=== PATIENT | male | born 1985 | race African-American/Black ===

== ENCOUNTER 2019-01-18 10:10 | Emergency (ER) | payer OTHER ==
--- NOTE | 2019-01-18 11:44 | RAD REPORT ---
EXAM DESCRIPTION: USExtrem Venous W Compress Bil01/18/2019 11:32 am CLINICAL HISTORY: Leg pain COMPARISON: 2016 FINDINGS: The common femoral, superficial femoral, popliteal and posterior tibial veins bilaterally are compressible and demonstrate augmentation. Doppler demonstrates good flow. IMPRESSION: No evidence of deep venous thrombosis involving either lower extremity.
--- NOTE | 2019-01-18 12:38 | EDPHYS ---
Physician Documentation [facility] Name: Roly Guy Jr Age: 33 yrs Sex: Male : 1985 Arrival Date: 01/18/2019 Time: 10:12 Bed 2 Private MD: Jeremias Burns B ED Physician Milton Harding HPI: 01/18 10:35 This 33 yrs old Black Male presents to ER via Wheelchair with complaints of Blood Clot. cp 10:35 The patient presents with pain, that is acute, swelling. The complaints affect the cp lateral aspect of left calf and left calf, lateral aspect of right calf and right calf. 10:35 Onset: The symptoms/episode began/occurred 2 week(s) ago. Associated signs and cp symptoms: Pertinent negatives fever, warmth, weakness. Patient reports history of DVT. Was taking prescribed Eliquis until he ran out 2 weeks ago. Patient resumed taking Eliquis 4 days ago. Historical: - Allergies: 10:30 Sulfa (Sulfonamide Antibiotics); sv 10:30 NSAIDS; sv - Home Meds: 10:30 Eliquis 2.5 mg oral tab [Active]; Uloric 80 mg oral tab [Active]; Bystolic 20 mg oral sv tab [Active]; Cardura 2 mg Oral tab [Active]; clonidine HCl 0.1 mg Oral tab [Active]; hydralazine 50 mg Oral tab [Active]; levothyroxine 100 mcg tab [Active]; vescepa 1gm [Active]; Repatha Syringe subcutaneous subcutaneous [Active]; CoQ-10 oral oral [Active]; Zetia 10 mg Oral tab [Active]; tremfyia [Active]; - PMHx: 10:30 DVT; Gout; Hyperlipidemia; Hypertension; kidney problems; St 3; Psoriatic arthritis; sv High Cholesterol; Psoriasis; - PSHx: 10:30 None; sv - Immunization history:: Adult Immunizations up to date, Flu vaccine is not up to date. - Social history:: Smoking status: Patient/guardian denies using tobacco. - Ebola Screening: : No symptoms or risks identified at this time. ROS: 10:45 Constitutional: Negative for body aches, chills, fever, poor PO intake. cp 10:45 Eyes: Negative for injury, pain, redness, and discharge. cp 10:45 ENT: Negative for drainage from ear(s), ear pain, sore throat, difficulty swallowing, difficulty handling secretions. 10:45 Cardiovascular: Negative for chest pain, edema, palpitations. 10:45 Respiratory: Negative for cough, shortness of breath, wheezing. 10:45 Abdomen/GI: Negative for abdominal pain, nausea, vomiting, and diarrhea. 10:45 Back: Negative for pain at rest, pain with movement. 10:45 MS/extremity: Positive for pain, swelling, tenderness, of the right calf and left calf and lateral aspect of left calf and lateral aspect of right calf, Negative for injury or acute deformity, paresthesias. 10:45 Skin: Negative for cellulitis, rash. 10:45 Neuro: Negative for dizziness, headache, syncope, weakness. 10:45 All other systems are negative. Exam: 10:50 Constitutional: The patient appears in no acute distress, alert, awake, cp non-diaphoretic, non-toxic, well developed, well nourished. 10:50 Head/Face: Normocephalic, atraumatic. cp 10:50 Eyes: Periorbital structures: appear normal, Conjunctiva: normal, no exudate, no injection, Lids and lashes: appear normal, bilaterally. 10:50 ENT: External ear(s): are unremarkable, Nose: is normal, Mouth: Lips: moist, Oral mucosa: moist, Posterior pharynx: is normal, airway is patent, no erythema, no exudate. 10:50 Chest/axilla: Inspection: normal. 10:50 Cardiovascular: Rate: normal. 10:50 Respiratory: the patient does not display signs of respiratory distress, Respirations: normal, no use of accessory muscles, no retractions, no splinting, no tachypnea, labored breathing, is not present, Breath sounds: are clear throughout, no decreased breath sounds, no stridor, no wheezing. 10:50 Abdomen/GI: Exam negative for discomfort, distension, guarding, Inspection: abdomen appears normal. 10:50 Musculoskeletal/extremity: DVT Exam: no swelling, no erythema, no increased warmth, pain, of the lateral aspect of right calf and right calf and left calf and lateral aspect of left calf, tenderness, that is mild, of the lateral aspect of left calf and lateral aspect of right calf and right calf and left calf. 10:50 Skin: cellulitis, is not appreciated, no rash present. Vital Signs: 10:30 BP 142 / 75; Pulse 79; Resp 18; Temp 97; Pulse Ox 98% ; Weight 124.74 kg; Height 5 ft. sv 9 in. (175.26 cm); 12:00 BP 127 / 87; Pulse 92; Resp 18; Pulse Ox 98% on R/A; aj1 10:30 Body Mass Index 40.61 (124.74 kg, 175.26 cm) sv MDM: 10:26 Patient medically screened. cp 10:30 Differential diagnosis: tendonitis, sprain, strain, DVT. cp 12:36 Data reviewed: vital signs, nurses notes, radiologic studies, ultrasound, and as a cp result, I will discharge patient. 12:36 Counseling: I had a detailed discussion with the patient and/or guardian regarding: the cp historical points, exam findings, and any diagnostic results supporting the discharge/admit diagnosis, radiology results, to return to the emergency department if symptoms worsen or persist or if there are any questions or concerns that arise at home. ED course: VSS. US negative for DVT. Will discharge to home for continued monitoring. 01/18 10:26 Order name: US Extremity Venous W Compression Derek cp Administered Medications: No medications were administered Disposition: 16:05 Co-signature as Attending Physician, Milton Harding MD I agree with the assessment and kdr plan of care. Disposition: 01/18/19 12:37 Discharged to Home. Impression: Pain in right lower leg, Pain in left lower leg. - Condition is Stable. - Discharge Instructions: Elastic Bandage and RICE, Musculoskeletal Pain, RICE for Routine Care of Injuries. - Medication Reconciliation Form, Thank You Letter, Antibiotic Education, Prescription Opioid Use, Work release form form. - Follow up: Private Physician; When: 2 - 3 days; Reason: Recheck today's complaints. - Problem is new. - Symptoms have improved. Signatures: Dispatcher [employer] Christina Glass, Milton Marley RN, MD MD kdr Page, Corey, PA PA cp Peltier, Brian, RN RN bp Corrections: (The following items were deleted from the chart) 12:49 12:37 01/18/2019 12:37 Discharged to Home. Impression: Pain in right lower leg; Pain in bp left lower leg. Condition is Stable. Forms are Medication Reconciliation Form, Thank You Letter, Antibiotic Education, Prescription Opioid Use. Follow up: Private Physician; When: 2 - 3 days; Reason: Recheck today's complaints. Problem is new. Symptoms have improved. cp
--- NOTE | 2019-01-18 12:38 | ER ---
Nurse's Notes [facility] Name: Roly Guy Jr Age: 33 yrs Sex: Male : 1985 Arrival Date: 01/18/2019 Time: 10:12 Bed 2 Private MD: Jeremias Burns B Diagnosis: Pain in right lower leg;Pain in left lower leg Presentation: 01/18 10:25 Presenting complaint: Patient states: RLE swelling x 2 weeks and LLE swelling x 1 week; sv recently ran out of his Eliquis 4 days ago. Hx DVTs. Transition of care: patient was not received from another setting of care. Onset of symptoms was December 2018. Risk Assessment: Do you want to hurt yourself or someone else? Patient reports no desire to harm self or others. Initial Sepsis Screen: Does the patient meet any 2 criteria? No. Patient's initial sepsis screen is negative. Does the patient have a suspected source of infection? No. Patient's initial sepsis screen is negative. Care prior to arrival: None. 10:25 Method Of Arrival: Wheelchair sv 10:25 Acuity: KAITLIN 3 sv Triage Assessment: 10:30 General: Appears in no apparent distress. comfortable, Behavior is calm, cooperative, bp appropriate for age. Historical: - Allergies: 10:30 Sulfa (Sulfonamide Antibiotics); sv 10:30 NSAIDS; sv - Home Meds: 10:30 Eliquis 2.5 mg oral tab [Active]; Uloric 80 mg oral tab [Active]; Bystolic 20 mg oral sv tab [Active]; Cardura 2 mg Oral tab [Active]; clonidine HCl 0.1 mg Oral tab [Active]; hydralazine 50 mg Oral tab [Active]; levothyroxine 100 mcg tab [Active]; vescepa 1gm [Active]; Repatha Syringe subcutaneous subcutaneous [Active]; CoQ-10 oral oral [Active]; Zetia 10 mg Oral tab [Active]; tremfyia [Active]; - PMHx: 10:30 DVT; Gout; Hyperlipidemia; Hypertension; kidney problems; St 3; Psoriatic arthritis; sv High Cholesterol; Psoriasis; - PSHx: 10:30 None; sv - Immunization history:: Adult Immunizations up to date, Flu vaccine is not up to date. - Social history:: Smoking status: Patient/guardian denies using tobacco. - Ebola Screening: : No symptoms or risks identified at this time. Screenin:25 Abuse screen: Denies threats or abuse. Denies injuries from another. Nutritional aj1 screening: No deficits noted. Tuberculosis screening: No symptoms or risk factors identified. 12:49 Fall Risk None identified. bp Assessment: 10:25 General: Appears in no apparent distress. comfortable, Behavior is calm, cooperative, aj1 appropriate for age. Pain: Complains of pain in right calf and left calf Pain does not radiate. Pain currently is 4 out of 10 on a pain scale. Quality of pain is described as aching, Is continuous, Alleviated by nothing. Aggravated by nothing. Neuro: Level of Consciousness is awake, alert, obeys commands, Oriented to person, place, time, situation. Cardiovascular: Heart tones S1 S2 present Patient's skin is warm and dry. Respiratory: Airway is patent Respiratory effort is even, unlabored, Respiratory pattern is regular, symmetrical, Breath sounds are clear bilaterally. Respiratory: Denies shortness of breath. GI: No signs and/or symptoms were reported involving the gastrointestinal system. : No signs and/or symptoms were reported regarding the genitourinary system. EENT: No signs and/or symptoms were reported regarding the EENT system. Derm: No signs and/or symptoms reported regarding the dermatologic system. Skin is pink, warm \T\ dry. normal. Musculoskeletal: Swelling absent. 11:30 Reassessment: Patient is in ultrasound at this time. aj1 12:00 Reassessment: Patient appears in no apparent distress at this time. No changes from aj1 previously documented assessment. Patient and/or family updated on plan of care and expected duration. Pain level reassessed. Patient is alert, oriented x 3, equal unlabored respirations, skin warm/dry/pink. 12:48 Reassessment: PT D/C HOME AMBULATORY WITH FAMILY, DX WITH LOWER LEG PAIN. bp Vital Signs: 10:30 BP 142 / 75; Pulse 79; Resp 18; Temp 97; Pulse Ox 98% ; Weight 124.74 kg; Height 5 ft. sv 9 in. (175.26 cm); 12:00 BP 127 / 87; Pulse 92; Resp 18; Pulse Ox 98% on R/A; aj1 10:30 Body Mass Index 40.61 (124.74 kg, 175.26 cm) ED Course: 10:12 Patient arrived in ED. mr 10:13 Jeremias Burns MD is Private Physician. mr 10:23 Navarro Odonnell PA is PHCP. cp 10:23 Milton Harding MD is Attending Physician. cp 10:25 Joanie Falcon, RN is Primary Nurse. aj1 10:25 Patient has correct armband on for positive identification. Bed in low position. Call aj1 light in reach. 10:25 No provider procedures requiring assistance completed. aj1 10:26 Triage completed. sv 12:48 Patient did not have IV access during this emergency room visit. bp 12:49 Arm band placed on. bp Administered Medications: No medications were administered Outcome: 12:37 Discharge ordered by MD. cp 12:48 Discharged to home ambulatory, with family. bp 12:48 Condition: stable 12:48 Discharge instructions given to patient, Instructed on discharge instructions, follow up and referral plans. Demonstrated understanding of instructions, follow-up care. 12:49 Patient left the ED. bp Signatures: Joanie Falcon, RN RN aj1 Christina Lua RN RN Savannah Guan mr Navarro Odonnell PA PA Pj Cedeno, RN RN bp
[2019-01-18 13:18] VITALS: TEMP 97; O2SAT 98
[2019-01-18 13:20] VITALS: BP 127/87
== END 2019-01-18 12:49 | disposition home or self-care (01) ==
LOC: ER 10:10
DX: M79.661 Pain in right lower leg (principal); M79.662 Pain in left lower leg; I82.409 Acute embolism and thrombosis of unspecified deep veins of unspecified lower extremity; E78.5 Hyperlipidemia, unspecified; I10 Essential (primary) hypertension; E78.00 Pure hypercholesterolemia, unspecified; Z88.2 Allergy status to sulfonamides
CPT/HCPCS: 93970; 99281

== ENCOUNTER 2020-01-07 13:00 | Inpatient (IN) | payer BC, OTHER ==
--- NOTE | 2020-01-07 14:18 | RAD REPORT ---
EXAM DESCRIPTION: Tyson Single View01/07/2020 2:11 pm CLINICAL HISTORY: Cough COMPARISON: 2015 FINDINGS: Lungs appear grossly clear Heart is size
[2020-01-07] MEDS ORDERED: ACETAMINOPHEN 325 MG TABLET ONE (14:25)
[2020-01-07] MEDS ORDERED: dexAMETHasone 10 MG/ML VIAL ONE (14:25)
[2020-01-07] MEDS ORDERED: NA CHLORIDE 0.9% 500 ML ONE (14:25)
[2020-01-07 15:36] LABS: Absolute Lymphocytes (CBC) 1.6 K/uL (0.7-4.9); Basophils % 1.1 % (0-1.3); Hematocrit 44.6 % (39.6-49.0); Lymphocytes % 21.3 % (15.3-44.8); MPV 8.6 fL (7.6-11.3); RBC Red Blood Cell Count 5.92 M/uL (4.33-5.43)
[2020-01-07 16:05] LABS: Potassium 4.8 mmol/L (3.5-5.1)
[2020-01-07 17:51] LABS: Blood Morphology Comment NOT SEEN (NOT SEEN); Platelet Estimate ADEQ; Urine White Blood Cell Casts OK
--- NOTE | 2020-01-07 17:55 | ER ---
Nurse's Notes [facility] Name: Roly Guy Jr Age: 34 yrs Sex: Male : 1985 Arrival Date: 01/07/2020 Time: 13:02 Bed 14 Private MD: Diagnosis: Acute kidney failure;Dyspnea, unspecified;Coronavirus infection, unspecified Presentation: 01/06 13:15 Chief complaint: Patient states: Covid-19+ 01/01/2020. Symptoms started 12/28/2019. C/O ca1 SOB and low BP at 90/50, reports almost pass out a couple of times. Completed Z-pack and Medrol Pack. Coronavirus screen: Client denies travel out of the [place] in the last 14 days. cough unrelated to allergies, diarrhea, fatigue, shortness of breath, sore throat, loss of taste or smell, Client presents with at least one sign or symptom that may indicate coronavirus-19. Standard/surgical mask placed on the client. Provider contacted for isolation considerations. Client reports previous positive COVID test result. Date of collection: January 01, 2020 Staff notified of need for isolation. Ebola Screen: Patient negative for fever greater than or equal to 101.5 degrees Fahrenheit, and additional compatible Ebola Virus Disease symptoms Patient denies exposure to infectious person. Patient denies travel to an Ebola-affected area in the 21 days before illness onset. No symptoms or risks identified at this time. Initial Sepsis Screen: Does the patient meet any 2 criteria? No. Patient's initial sepsis screen is negative. Does the patient have a suspected source of infection? No. Patient's initial sepsis screen is negative. Risk Assessment: Do you want to hurt yourself or someone else? Patient reports no desire to harm self or others. Onset of symptoms was January 07, 2020. 13:15 Method Of Arrival: Ambulatory ca1 13:15 Acuity: KAITLIN 3 ca1 Historical: - Allergies: 13:24 NKDA; ca1 13:24 NSAIDS; ca1 13:24 Sulfa (Sulfonamide Antibiotics); ca1 - Home Meds: 13:24 Bystolic 20 mg Oral tab 1 tab once daily [Active]; levothyroxine 112 mcg oral tab 1 tab ca1 once daily [Active]; Uloric 80 mg Oral tab 1 tab once daily [Active]; Cardura 2 mg Oral tab 1 tab twice a day [Active]; clonidine HCl 0.1 mg Oral tab 1 tab 2 times per day [Active]; calcitriol 0.25 mcg oral cap [Active]; Eliquis 2.5 mg Oral tab 1 tab 2 times per day [Active]; vescepa 1gm twice a day [Active]; Repatha Syringe subcutaneous every 2 wks [Active]; CoQ-10 200 mg cap Oral daily [Active]; ezetimibe oral 10 mg oral 1 tab once daily [Active]; Enbrel 50 mg/mL (0.98 mL) subcutaneous syrg 1 mL once wkly [Active]; - PMHx: 13:24 DVT; Gout; High Cholesterol; Hyperlipidemia; Hypertension; kidney problems; St 3; ca1 psoriasis; Psoriatic Arthritis; Rheumatoid Arthritis; CKD stage 3; IGA Neuropathy; Hypothyroidism; - Immunization history:: Adult Immunizations up to date. - Social history:: Smoking status: Patient denies any tobacco usage or history of. - Family history:: not pertinent. - Hospitalizations: : No recent hospitalization is reported. Screenin:30 Abuse screen: Denies threats or abuse. Denies injuries from another. Nutritional jl7 screening: No deficits noted. Tuberculosis screening: No symptoms or risk factors identified. Fall Risk IV access (20 points). Total Ly Fall Scale indicates No Risk (0-24 pts). Assessment: 13:30 General: Appears in no apparent distress. uncomfortable, Behavior is calm, cooperative, jl7 appropriate for age. Pain: Denies pain. Neuro: Level of Consciousness is awake, alert, obeys commands, Oriented to person, place, time, situation. Cardiovascular: Patient's skin is warm and dry. Respiratory: Airway is patent Respiratory effort is even, unlabored, Respiratory pattern is regular, symmetrical. GI: No signs and/or symptoms were reported involving the gastrointestinal system. : No signs and/or symptoms were reported regarding the genitourinary system. EENT: No signs and/or symptoms were reported regarding the EENT system. Derm: Skin is pink, warm \T\ dry. Musculoskeletal: No signs and/or symptoms reported regarding the musculoskeletal system. 14:30 Reassessment: Patient appears in no apparent distress at this time. No changes from jl7 previously documented assessment. Patient and/or family updated on plan of care and expected duration. Pain level reassessed. Patient is alert, oriented x 3, equal unlabored respirations, skin warm/dry/pink. 15:43 Reassessment: Patient appears in no apparent distress at this time. No changes from jl7 previously documented assessment. Patient and/or family updated on plan of care and expected duration. Pain level reassessed. Patient is alert, oriented x 3, equal unlabored respirations, skin warm/dry/pink. 17:28 Reassessment: Patient appears in no apparent distress at this time. No changes from jl7 previously documented assessment. Patient and/or family updated on plan of care and expected duration. Pain level reassessed. Patient is alert, oriented x 3, equal unlabored respirations, skin warm/dry/pink. 18:30 Reassessment: Provided pt with sandwich, chips, and fruit cup. jl7 Vital Signs: 13:15 BP 107 / 75; Pulse 80; Resp 20; Temp 99.3(O); Pulse Ox 94% on R/A; Weight 122.47 kg ca1 (R); Height 5 ft. 9 in. (175.26 cm) (R); 13:30 BP 114 / 77; Pulse 75; Resp 17 S; Pulse Ox 96% on R/A; jl7 14:00 BP 109 / 74; Pulse 71; Resp 19; Pulse Ox 97% ; jl7 14:30 BP 110 / 71; Pulse 72; Resp 19; Pulse Ox 97% ; jl7 15:00 BP 108 / 70; Pulse 75; Resp 17; Pulse Ox 96% ; jl7 15:30 BP 107 / 80; Pulse 83; Resp 18; Pulse Ox 99% ; jl7 17:31 BP 104 / 79; Pulse 72; Resp 17; Pulse Ox 99% ; jl7 19:00 BP 111 / 77; Pulse 69; Resp 19; Pulse Ox 99% ; jl7 19:38 BP 117 / 78; Pulse 79; Resp 18; Temp 98.5; Pulse Ox 98% on R/A; mg2 13:15 Body Mass Index 39.87 (122.47 kg, 175.26 cm) ca1 ED Course: 13:02 Patient arrived in ED. rg4 13:12 William Villeda MD is Attending Physician. rn 13:19 Triage completed. ca1 13:24 Arm band placed on right wrist. ca1 13:40 Initial lab(s) drawn, by ED staff, sent to lab. Inserted saline lock: 20 gauge in right jl7 antecubital area, using aseptic technique. Blood collected. 14:11 XRAY Chest (1 view): COVID+ In Process Unspecified. EDMS 14:12 Bir Denton, RN is Primary Nurse. jl7 14:30 Patient has correct armband on for positive identification. Placed in gown. Bed in low jl7 position. Call light in reach. Side rails up X 1. cardiology nurse on. Pulse ox on. NIBP on. 15:16 Lab(s) recollected, by me, sent to lab. jl7 17:54 Pb Burns DO is Hospitalizing Provider. rn 19:00 No provider procedures requiring assistance completed. Patient admitted, IV remains in jl7 place. intact, No redness/swelling at site. Administered Medications: 14:24 Drug: NS 0.9% 500 ml Route: IV; Rate: bolus; Site: right antecubital; jl7 16:00 Follow up: Response: No adverse reaction; IV Status: Completed infusion; IV Intake: jl7 500ml 14:24 Drug: Tylenol 650 mg Route: PO; jl7 15:15 Follow up: Response: No adverse reaction jl7 14:25 Drug: Decadron - Dexamethasone 10 mg Route: IVP; Site: right antecubital; jl7 15:16 Follow up: Response: No adverse reaction jl7 Intake: 16:00 IV: 500ml; Total: 500ml. jl7 Outcome: 17:54 Decision to Hospitalize by Provider. rn 19:39 Admitted to Med/surg accompanied by nurse, via wheelchair, room 430, with chart, Report mg2 called to MYRON Anderson 19:39 Condition: stable 19:39 Instructed on the need for admit, Demonstrated understanding of instructions. 20:08 Patient left the ED. mg2 Signatures: Dispatcher [employer] EDMS William Villeda MD MD rn Garcia, Rubi rg4 Bri Dentno, MYRON SANCHES jl7 Corey Kumari RN RN mg2 Margo Alexander RN RN ca1
--- NOTE | 2020-01-07 17:55 | EDPHYS ---
Physician Documentation [facility] Name: Roly Guy Jr Age: 34 yrs Sex: Male : 1985 Arrival Date: 01/07/2020 Time: 13:02 Bed 14 Private MD: ED Physician William Villeda HPI: 01/06 14:10 This 34 yrs old Black Male presents to ER via Ambulatory with complaints of COVID+, SOB.rn 14:10 The patient has shortness of breath at rest, with light activity. Onset: The rn symptoms/episode began/occurred 1 week(s) ago. Duration: The symptoms are intermittent. The patient's shortness of breath is aggravated by exertion, light activity, is alleviated by nothing. Severity of symptoms: At their worst the symptoms were moderate in the emergency department the symptoms are unchanged. The patient has not experienced similar symptoms in the past. Reports covid +, tested last week, reports slowly worsening sob, dry cough, fatigue. No chest pain. No hemoptysis. . Historical: - Allergies: 13:24 NKDA; ca1 13:24 NSAIDS; ca1 13:24 Sulfa (Sulfonamide Antibiotics); ca1 - Home Meds: 13:24 Bystolic 20 mg Oral tab 1 tab once daily [Active]; levothyroxine 112 mcg oral tab 1 tab ca1 once daily [Active]; Uloric 80 mg Oral tab 1 tab once daily [Active]; Cardura 2 mg Oral tab 1 tab twice a day [Active]; clonidine HCl 0.1 mg Oral tab 1 tab 2 times per day [Active]; calcitriol 0.25 mcg oral cap [Active]; Eliquis 2.5 mg Oral tab 1 tab 2 times per day [Active]; vescepa 1gm twice a day [Active]; Repatha Syringe subcutaneous every 2 wks [Active]; CoQ-10 200 mg cap Oral daily [Active]; ezetimibe oral 10 mg oral 1 tab once daily [Active]; Enbrel 50 mg/mL (0.98 mL) subcutaneous syrg 1 mL once wkly [Active]; - PMHx: 13:24 DVT; Gout; High Cholesterol; Hyperlipidemia; Hypertension; kidney problems; St 3; ca1 psoriasis; Psoriatic Arthritis; Rheumatoid Arthritis; CKD stage 3; IGA Neuropathy; Hypothyroidism; - Immunization history:: Adult Immunizations up to date. - Social history:: Smoking status: Patient denies any tobacco usage or history of. - Family history:: not pertinent. - Hospitalizations: : No recent hospitalization is reported. 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 Exam: 14:10 Constitutional: This is a well developed, well nourished patient who is awake, alert, rn and in no acute distress. Head/Face: Normocephalic, atraumatic. Eyes: Pupils equal round, Periorbital areas with no swelling, redness, or edema. ENT: No stridor Cardiovascular: Regular rate and rhythm. No pulse deficits. Respiratory: Mild tachypnea, no retractions. Skin: Dry, no cyanosis. Neuro: Awake and alert, GCS 15 Vital Signs: 13:15 BP 107 / 75; Pulse 80; Resp 20; Temp 99.3(O); Pulse Ox 94% on R/A; Weight 122.47 kg ca1 (R); Height 5 ft. 9 in. (175.26 cm) (R); 13:30 BP 114 / 77; Pulse 75; Resp 17 S; Pulse Ox 96% on R/A; jl7 14:00 BP 109 / 74; Pulse 71; Resp 19; Pulse Ox 97% ; jl7 14:30 BP 110 / 71; Pulse 72; Resp 19; Pulse Ox 97% ; jl7 15:00 BP 108 / 70; Pulse 75; Resp 17; Pulse Ox 96% ; jl7 15:30 BP 107 / 80; Pulse 83; Resp 18; Pulse Ox 99% ; jl7 17:31 BP 104 / 79; Pulse 72; Resp 17; Pulse Ox 99% ; jl7 19:00 BP 111 / 77; Pulse 69; Resp 19; Pulse Ox 99% ; jl7 19:38 BP 117 / 78; Pulse 79; Resp 18; Temp 98.5; Pulse Ox 98% on R/A; mg2 13:15 Body Mass Index 39.87 (122.47 kg, 175.26 cm) ca1 MDM: 13:12 Patient medically screened. rn 17:51 Differential diagnosis: Pneumonia, renal failure, COVID+. Data reviewed: vital signs, rn nurses notes, lab test result(s), radiologic studies, plain films, and as a result, I will admit patient. Counseling: I had a detailed discussion with the patient and/or guardian regarding: the historical points, exam findings, and any diagnostic results supporting the discharge/admit diagnosis, lab results, radiology results, the need for further work-up and treatment in the hospital. Response to treatment: the patient's symptoms have mildly improved after treatment, and as a result, I will admit patient. Admission orders: after a detailed discussion of the patient's condition and case, the admit orders are written by me. ED course: Pt admitted to Dr. Burns for COVID infection and acute renal failure. . 01/06 13:27 Order name: CBC with Diff; Complete Time: 17:56 rn 01/06 13:27 Order name: Basic Metabolic Panel; Complete Time: 16:40 rn 01/06 13:27 Order name: Procalcitonin; Complete Time: 16:40 rn 01/06 13:27 Order name: Blood Culture Adult (2) rn 01/06 13:27 Order name: CRP; Complete Time: 16:40 rn 01/06 13:27 Order name: Ferritin; Complete Time: 16:40 rn 01/06 13:27 Order name: IV Start; Complete Time: 14:25 rn 01/06 13:27 Order name: XRAY Chest (1 view): COVID+; Complete Time: 14:29 rn 01/06 13:27 Order name: D-Dimer; Complete Time: 16:02 rn 01/06 16:44 Order name: CK; Complete Time: 18:07 rn 01/06 17:50 Order name: CBC Smear Scan; Complete Time: 17:56 EDWV 01/06 14:14 Order name: Labs - recollect needed: recollect green, blue and lavendar top; Complete bd Time: 15:15 Administered Medications: 14:24 Drug: NS 0.9% 500 ml Route: IV; Rate: bolus; Site: right antecubital; jl7 16:00 Follow up: Response: No adverse reaction; IV Status: Completed infusion; IV Intake: jl7 500ml 14:24 Drug: Tylenol 650 mg Route: PO; 7 15:15 Follow up: Response: No adverse reaction [facility] 14:25 Drug: Decadron - Dexamethasone 10 mg Route: IVP; Site: right antecubital; 7 15:16 Follow up: Response: No adverse reaction [facility] Disposition: 01/07/20 17:54 Hospitalization ordered by Pb Burns for Inpatient Admission. Preliminary diagnosis are Acute kidney failure, Dyspnea, unspecified, Coronavirus infection, unspecified. - Bed requested for Telemetry/MedSurg (Inpatient). - Status is Inpatient Admission. mg2 - Condition is Stable. - Problem is new. - Symptoms have improved. 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 Preliminary dw diagnosis is Acute kidney failure; Dyspnea, unspecified; Coronavirus infection, unspecified. Bed requested for Telemetry/MedSurg (Inpatient). Status is Inpatient Admission. Condition is Stable. Problem is new. Symptoms have improved. rn 20:08 18:44 01/07/2020 17:54 Hospitalization Ordered by Pb Burns DO for Inpatient mg2 Admission. Preliminary diagnosis is Acute kidney failure; Dyspnea, unspecified; Coronavirus infection, unspecified. Bed requested for Telemetry/MedSurg (Inpatient). Status is Inpatient Admission. Condition is Stable. Problem is new. Symptoms have improved. dw
--- NOTE | 2020-01-07 18:33 | P.HP ---
Certification for Inpatient Patient admitted to: Observation With expected LOS: <2 Midnights Patient will require the following post-hospital care: None Practitioner: I am a practitioner with admitting privileges, knowledge of patient current condition, hospital course, and medical plan of care. Services: Services provided to patient in accordance with Admission requirements found in Title 42 Section 412.3 of the Code of Federal Regulations Patient History Date of Service: 01/07/20 Primary Care Provider: Dr. Burns Reason for admission: Acute renal failure History of Present Illness: 34-year-old male with history of IgA nephropathy, hypertension, hyperlipidemia, DVT, gout presents emergency department after testing positive for COVID on December 31. Patient reports malaise, fatigue, blood pressure running a bit low. Patient was evaluated in the emergency department and found to be in acute renal failure. Patient's baseline creatinine is around 2.8-3 and baseline GFR is around 30. Today patient's creatinine is 6.4 and GFR is 12. ED provider wishes to admit patient for further evaluation and management. When I saw the patient in the emergency department he was awake, alert, oriented x3. Patient in no distress at this time. Patient without labored breathing, oxygen saturation within normal limits. Patient be admitted for further evaluation and management. Allergies No Known Drug Allergies Allergy (Verified 04/19/16 01:14) Unknown Home Medications: Adalimumab [Humira] 1 pill PO EVERY 7TH DAY 04/19/16 Doxazosin [Cardura*] 1 pill PO BEDTIME 04/19/16 Levothyroxine [Synthroid*] 1 pill PO DAILY 04/19/16 Nebivolol HCl [Bystolic*] 1 pill PO DAILY 04/19/16 allopurinoL [Zyloprim*] 1 pill PO BID 04/19/16 Hydralazine HCl 50 mg PO BID #60 tablet 04/22/16 Levothyroxine [Synthroid*] 75 mcg PO [id number] #30 tab 04/22/16 cloNIDine HCL [Catapres*] 0.1 mg PO BID #60 tab 04/22/16 - Past Medical/Surgical History Diabetic: No -: Hypertension -: Hyperlipidemia -: Hypothyroidism -: Gout -: Psoriasis -: IgA nephropathy -: Chronic kidney disease stage III Past Surgical History: Patient denies surgical history Psychosocial/ Personal History: He is , has 4 children, 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 - Family History Father -: Hypertension, Diabetes, Stroke, Kidney disease - Social History Smoking Status: Never smoker Alcohol use: Yes CD- Drugs: No Caffeine use: Yes Place of Residence: Home Review of Systems 10-point ROS is otherwise unremarkable General: Malaise Physical Examination - Physical Exam General: Alert, In no apparent distress, Oriented x3 HEENT: Atraumatic, Normocephalic, PERRLA, Other (Mucous membranes dry) Neck: Supple Respiratory: Clear to auscultation bilaterally, Normal air movement Cardiovascular: No edema, Regular rate/rhythm, Normal S1 S2 Capillary refill: <2 Seconds Gastrointestinal: Normal bowel sounds, Soft and benign Musculoskeletal: No contractures, No erythema, No tenderness Integumentary: No tenderness/swelling, No erythema, No warmth Neurological: Normal speech, Normal strength at 5/5 x4 extr, Normal tone - Studies Laboratory Data (last 24 hrs) 01/07/20 15:10: Sodium 140, Potassium 4.8, BUN 78 H, Creatinine 6.44 H*, Glucose 100 01/07/20 15:10: WBC 7.7, Hgb 15.0, Hct 44.6, Plt Count 159 Assessment and Plan - Plan Assessment Acute on chronic kidney disease-history of IgA nephropathy COVID-19 Hypertension Hyperlipidemia Gout History of DVT Plan Acute on chronic kidney disease-history of IgA nephropathy: Nephrology has been consulted on this case. Continue gentle hydration at this time. Will obtain renal ultrasound and repeat labs in the morning. Appreciate further input from nephrology. COVID-19: Patient without any respiratory symptoms or distress this time. Will continue to monitor closely. Will order daily CRP and ferritin levels. Hypertension: Patient's blood pressure within normal limits at this time without medication. Will continue to monitor closely. Will hold any nephrotoxic agents. Hyperlipidemia: Obtain and continue patient's home medications. Gout: Will obtain home medications and evaluate, restart if not nephrotoxic. History of DVT: Continue with heparin 5000 units subcutaneous twice daily at this time. Will restart patient's home medications as appropriate. Discharge Plan: Home Plan to discharge in: 24 Hours - Advance Directives Does patient have a Living Will: No Does patient have a Durable POA for Healthcare: No - Code Status/Comfort Care Code Status Assessed: No Critical Care: No Time Spent Managing Pts Care (In Minutes): 55
[2020-01-07] MEDS ORDERED: ACETAMINOPHEN 500 MG TAB PO PRN (20:16)
[2020-01-07] MEDS ORDERED: ONDANSETRON 4 MG/2 ML VIAL IV PRN (20:16)
[2020-01-07] MEDS ORDERED: HYDROCODONE/APAP 7.5/325 MG TAB PO PRN (20:16)
[2020-01-07] MEDS: NA CHLORIDE 0.9% 1,000 ML IV SCH (20:47)
[2020-01-07 21:18] VITALS: BMI 39.8
[2020-01-07] MEDS: HEPARIN 5000 UNIT/ML 1 ML VIAL SQ SCH (21:43)
[2020-01-08 04:15] LABS: Absolute Lymphocytes (CBC) 0.7 K/uL (0.7-4.9); Basophils % 0.2 % (0-1.3); Hematocrit 44.1 % (39.6-49.0); Lymphocytes % 16.5 % (15.3-44.8); MPV 8.8 fL (7.6-11.3); RBC Red Blood Cell Count 5.89 M/uL (4.33-5.43)
[2020-01-08 04:34] LABS: Urine Appearance CLOUDY; Urine Bilirubin NEGATIVE (NEG); Urine Blood 2+ (NEG); Urine Color YELLOW; Urine Glucose TRACE (NEG); Urine Protein 3+ (NEG); Urine Urobilinogen 0.2 mg/dL (0.2-1.0)
[2020-01-08 04:39] LABS: Urine Microscopic Reflex ORDER UMIC
[2020-01-08 04:49] LABS: C-Reactive Protein 16.7 mg/L (<3.00); Ferritin 1027.2 ng/mL (26-388); Magnesium 2.1 mg/dL (1.8-2.4); Phosphorus 3.7 mg/dL (2.5-4.9); Potassium 5.4 mmol/L (3.5-5.1); Uric Acid 9.1 mg/dL (3.5-7.2)
[2020-01-08 04:49] LABS: Urine Protein/Creatinine Ratio 13.2 ratio (<0.15)
[2020-01-08 05:19] LABS: Urine Bacteria 20-50 /HPF (NONE SEEN); Urine Culture Reflex Order REFLEXED; Urine RBC <5 /HPF (NONE SEEN)
[2020-01-08] MEDS: NA CHLORIDE 0.9% 1,000 ML IV SCH ×2 (05:48→15:42)
[2020-01-08] MEDS: HEPARIN 5000 UNIT/ML 1 ML VIAL SQ SCH ×2 (07:35→21:32)
[2020-01-08] MEDS: CALCITROL 0.25 MCG CAP PO SCH (11:51)
--- NOTE | 2020-01-08 12:17 | RAD REPORT ---
EXAM DESCRIPTION: US - Renal Ultrasound-Complete - 01/08/2020 10:55 am CLINICAL HISTORY: arf COMPARISON: Renal Biopsy dated 04/20/2016 FINDINGS: The right kidney measures 12.0 x 8.1 x 7.1 cm. The left kidney measures 9.8 x 6.0 x 5.6 c m. Cortical thickness is within normal range. There is increased cortical echogenicity consistent wit h medical renal disease. No hydronephrosis or suspicious renal mass. Partially filled urinary bladder shows no suspicious finding. IMPRESSION: Medical renal disease is evident with no mass, hydronephrosis or other suspicious findin g. No urinary bladder seen. Bladder was only partially filled.
--- NOTE | 2020-01-08 12:40 | CON ---
Date of Consultation: 01/08/2020 Additional Consulting Physician: Dr. Gregg. Reason For Consultation: Elevated BUN and creatinine, fluid management. History Of Present Illness: This is a pleasant 34-year-old black gentleman with significant past medical history of hypertension, hyperlipidemia, edema, hypothyroidism, gout, chronic kidney disease stage 4 with nephrotic range proteinuria secondary to IgA nephropathy confirmed with biopsy back in 2015, did not go any under treatment. The patient had severe fibrosis. The patient followup with Dr. Rodgers, follow up back in July, at that time creatinine 3.8 with GFR 28. The patient apparently for the last few days feeling sick. The patient had positive COVID test back on the . Since then, he started feeling sicker with nausea, decreased intake. According to him, his blood pressure started dropping down for that reason he stop the clonidine, but continue on the other blood pressure medication. The patient because he felt worse, he reported to the emergency room when he arrived to the emergency room, primary workup show low blood pressure down to 70. Elevated BUN and creatinine, creatinine above 6 with GFR of 12 without any significant hyperkalemia. For that reason, we have been consulted. The patient denied taking any nonsteroidal, no IV contrast. Again, the patient according to him, he stop the clonidine, but continue on the Bystolic and the Cardura. Past Medical History: Include: 1. IgA nephropathy. 2. Hypertension. 3. Hyperlipidemia. 4. DVT. 5. Gout. 6. Chronic kidney disease, stage 4, secondary to IgA nephropathy. Home Medications: Include Humira, Cardura, levothyroxine, Bystolic, allopurinol, hydralazine, and clonidine. Past Surgical History: Include kidney biopsy. Family History: Positive for diabetes, hypertension, and stroke. Social History: Denies smoking. Occasional alcohol. Denies drug abuse. Review of Systems: Head and Neck: No red eye. No ear pain. GI: Has nausea and vomiting. : No polyuria. No dysuria. No hematuria. Product Technician: Not applicable. Respiratory: Has shortness of breath. Cardiovascular: No chest pain. Endocrine: No polydipsia. Skin: No rash. Neuro: Generalized fatigue. Musculoskeletal: Weakness. No joint pain. Physical Examination: Vital Signs: When I saw the patient upon arrival to the hospital blood pressure was on the 70 and rise after boluses to 107. Currently blood pressure 154/100. Chest: Clear to auscultation. Heart: S1 and S2, regular. Abdomen: Soft and nontender. Extremities: No edema. Neurologic: Alert and oriented x3. No focal. No tremor. Laboratory Data: WBC 4.1, H and H 14.8/44, platelets of 156. Sodium 143, potassium 5.4, bicarb 23, BUN 79, creatinine 6.3 and yesterday it was 6.4, GFR of 12, calcium 7.7, uric acid 9.1, ferritin 10.27, CK 169. Serum protein electrophoresis still pending. PTH 212. P/C ratio 13. Renal ultrasound still pending. Assessment/plan: 1. Acute kidney injury, mostly secondary to prerenal dehydration superimposed with the blood pressure medication secondary to GI poor intake plateau, marginal hyperkalemia. No severe acidosis. No uremic symptoms. I do not see the need to initiate renal replacement therapy. I going to continue IV hydration for the time being and I will follow up serology. Doubt to be any autoimmune disease for the patient possible COVID nephropathy. Again we will follow up the serology. Hopefully by stopping the blood pressure medication on hydration, hopefully kidney function has been improved. Again, I do not suspect autoimmune disease given there is no activity on urinalysis. No hematuria or leukouria. 2. Gout. Resume allopurinol. 3. Hypertension. Currently blood pressure on the lower side. Hold all blood pressure medication. I will start the patient back on his Bystolic and we will follow up. 4. Hyperkalemia marginal. We will follow up chemistry. Continue hydration. 5. Nephrotic range proteinuria secondary to IgA nephropathy. We will hold on any YAJAIRA inhibitor or ARB for the time being given the acute kidney injury. 6. Secondary hyperpara. I going to start the patient on Hectorol/calcitriol and we will follow up. Dr. Gregg for allowing us to participate in the care of your patient. Time spend for patient Care face to face , ordering and discussing the plan of care with staff 35 min ANETTE Voice ID: [id number] Report ID: [id number] MIGUE
[2020-01-08] MEDS ORDERED: HYDRALAZINE HCL 20 MG/ML VIAL IV PRN (17:39)
--- NOTE | 2020-01-08 17:40 | P.PN ---
Subjective Date of Service: 01/08/20 Primary Care Provider: Dr. Burns Chief Complaint: Acute renal failure Patient has no complain. His blood pressure readings are elevated today. Physical Examination - Vital Signs Temperature: 96.5 F Blood Pressure: 146/103 Pulse: 74 Respirations: 18 Pulse Ox (%): 98 - Physical Exam General: Alert, In no apparent distress, Oriented x3 HEENT: Mucous membr. moist/pink, Sclerae nonicteric Neck: Supple Respiratory: Clear to auscultation bilaterally, Normal air movement Cardiovascular: No edema, Regular rate/rhythm, Normal S1 S2 Gastrointestinal: Normal bowel sounds, Soft and benign, No tenderness Musculoskeletal: No swelling, No erythema Integumentary: No rashes Neurological: Other (Nonfocal.) - Studies Laboratory Data (last 24 hrs) 01/08/20 03:16: Sodium 143, Potassium 5.4 H, BUN 79 H, Creatinine 6.38 H*, G lucose 183 H, Uric Acid 9.1 H, Phosphorus 3.7, Magnesium 2.1 01/08/20 03:16: WBC 4.1 L D, Hgb 14.8, Hct 44.1, Plt Count 156 01/08/20 03:16: Uric Acid Cancelled, Phosphorus Cancelled 01/07/20 15:10: WBC 7.7, Hgb 15.0, Hct 44.6, Plt Count 159 Assessment And Plan - Current Problems (Diagnosis) (1) Acute worsening of stage 4 chronic kidney disease Current Visit: Yes Status: Acute (2) IgA deficiency Current Visit: Yes Status: Acute (3) COVID-19 virus infection Current Visit: Yes Status: Acute - Plan Continue IV hydration. Patient seen by nephrology. Serum creatinine is trending down slowly. Hopefully it would respond to IV hydration so we can avoid dialysis. Resume home antihypertensives. Hydralazine p.r.n. for BP spikes. Patient is asymptomatic from the COVID 19 infection.
[2020-01-08] MEDS ORDERED: cloNIDine HCL 0.1 MG TAB PO SCH (21:00)
[2020-01-09] MEDS: NA CHLORIDE 0.9% 1,000 ML IV SCH ×3 (02:16→11:28)
[2020-01-09 03:56] LABS: Absolute Lymphocytes (CBC) 1.5 K/uL (0.7-4.9); Basophils % 0.5 % (0-1.3); Hematocrit 42.1 % (39.6-49.0); Lymphocytes % 14.2 % (15.3-44.8); MPV 8.7 fL (7.6-11.3); RBC Red Blood Cell Count 5.66 M/uL (4.33-5.43)
[2020-01-09 04:35] LABS: Albumin 1.8 g/dL (3.4-5.0); Magnesium 1.8 mg/dL (1.8-2.4); Phosphorus 4.6 mg/dL (2.5-4.9); Potassium 5.1 mmol/L (3.5-5.1)
[2020-01-09] MEDS: LEVOTHYROXINE SOD 0.112 MG TAB PO SCH (06:31)
[2020-01-09] MEDS: HEPARIN 5000 UNIT/ML 1 ML VIAL SQ SCH ×2 (07:36→19:29)
[2020-01-09] MEDS: allopurinoL 100 MG TAB PO SCH (07:37)
[2020-01-09] MEDS ORDERED: MAGNESIUM SULFATE 1 gm IVPB 1 GM/100 ML BAG IV ONE (09:00)
[2020-01-09] MEDS ORDERED: NEBIVOLOL HCL 20 MG TABLET PO SCH (09:00)
[2020-01-09] MEDS ORDERED: NEBIVOLOL HCL 5 MG TAB PO SCH (09:00)
--- NOTE | 2020-01-09 14:32 | P.PN ---
Subjective Date of Service: 01/09/20 Primary Care Provider: Dr. Burns Chief Complaint: Acute renal failure Patient has no complain. His blood pressure readings are better today. Serum creatinine is trending down. Adequate urine output. Physical Examination - Vital Signs Temperature: 96.4 F Blood Pressure: 130/87 Pulse: 68 Respirations: 18 Pulse Ox (%): 98 - Physical Exam General: Alert, In no apparent distress HEENT: Mucous membr. moist/pink Respiratory: Clear to auscultation bilaterally, Normal air movement Cardiovascular: No edema, Regular rate/rhythm, Normal S1 S2 Gastrointestinal: Normal bowel sounds, Soft and benign, No tenderness Musculoskeletal: No swelling, No erythema Assessment And Plan - Current Problems (Diagnosis) (1) Acute worsening of stage 4 chronic kidney disease Current Visit: Yes Status: Acute (2) IgA deficiency Current Visit: Yes Status: Acute (3) COVID-19 virus infection Current Visit: Yes Status: Acute - Plan Continue IV hydration. Nephrology is following Serum creatinine is trending down. Hopefully it would respond to IV hydration so we can avoid dialysis. Continue antihypertensives. Hydralazine p.r.n. for BP spikes. Patient is asymptomatic from the COVID 19 infection.
--- NOTE | 2020-01-09 15:33 | PN ---
Date of Progress Note: 01/09/2020 Subjective: The patient was admitted with acute kidney injury secondary to prerenal, secondary to de hydration complicated with severe hyperkalemia. The patient has chronic kidney disease secondary to IgA nephropathy confirmed with biopsy. Physical Examination: Vital Signs: When I saw the patient, blood pressure 130/87, pulse of 68, afebrile. The patient had good urine output of 2600. Chest: Clear to auscultation. Heart: S1, S2. Regular. Abdomen: Soft, nontender. Extremities: No edema. Neurological: Alert and oriented x3. Nonfocal. Laboratory Data: WBC 10.8, H and H 14.3/42.1, platelets 191. Sodium 145, potassium 5.1, BUN 78, cre atinine down to 5.7, GFR of 14. Calcium 7.6, phosphorus 4.6, magnesium 1.8. Albumin 1.8, PTH of 212 . Serology is still pending. Current Medications: The patient on include heparin, clonidine 0.1 b.i.d., Zofran, levothyroxine, IV fluid at 100. Assessment And Plan: 1.Acute kidney injury on chronic kidney disease secondary to prerenal, doubt to be COVID nephropathy or activity of the IgA nephropathy as the urinalysis is planned and the improvement on all the IV fl uids. I am going to continue hydration, decrease IV fluids to 50 per hour. 2.Hypertension, controlled, optimal. Continue current treatment. 3.IgA nephropathy with acute kidney injury as above. 4.Hypothyroidism. Continue supplement. 5.COVID pneumonia. No hypoxemia. We will monitor the patient. ANETTE Voice ID: [id number] Report ID: [id number]
[2020-01-10] MEDS: NA CHLORIDE 0.9% 1,000 ML IV SCH (05:12)
[2020-01-10] MEDS: LEVOTHYROXINE SOD 0.112 MG TAB PO SCH (05:12)
[2020-01-10 05:36] LABS: Albumin 1.5 g/dL (3.4-5.0); Phosphorus 4.7 mg/dL (2.5-4.9); Potassium 5.2 mmol/L (3.5-5.1)
[2020-01-10] MEDS: NEBIVOLOL HCL 5 MG TAB PO SCH (07:45)
[2020-01-10] MEDS: HEPARIN 5000 UNIT/ML 1 ML VIAL SQ SCH ×2 (07:46→20:12)
[2020-01-10] MEDS: allopurinoL 100 MG TAB PO SCH (07:47)
[2020-01-10] MEDS: CALCITROL 0.25 MCG CAP PO SCH (10:44)
--- NOTE | 2020-01-10 12:34 | P.PN ---
Subjective Date of Service: 01/10/20 Primary Care Provider: Dr. Burns Chief Complaint: Acute renal failure Subjective Pt with Hx of IgA nephropathy , CKD IV and HTN admitted with fever, COVID 19 positive , Pt was hypotesnive Today CR stable from yesterday Na149, will change fluid to D5W F/U serology will cont to monitor RFT over the next few days no need for enal replacement therapy at this time Physical exam general: AAOX3, NAD , obese Neck; Supple, No elevated JVD hear: RRR, normal S1,2 no murmur or rub Chest: CTAB, no rlaes or wheezes Abdomen: Soft , Nt Extremities No edema or ulcer Assessment And Plan: MEY on CKD IV possibly due to dehydration +/- ischemic ATN +/- COVID cont IV will switch to D5W avoid NSAID and contrast HTN bp controlled now Hypernatremia saline induced will change fluid to D5W COVID 19 cont supportive care Physical Examination - Vital Signs Temperature: 96.4 F Blood Pressure: 140/88 Pulse: 78 Respirations: 16 Pulse Ox (%): 98 - Studies Microbiology Data (last 24 hrs): 01/08/20 03:55 Clean Catch Urine Randolph Count - Final 01/08/20 03:55 Clean Catch Urine - Final No growth.
[2020-01-10] MEDS: D5W 1,000 ML IV SCH (13:00)
--- NOTE | 2020-01-10 17:12 | P.PN ---
Subjective Date of Service: 01/10/20 Primary Care Provider: Dr. Burns Chief Complaint: Acute renal failure Patient has no complain. Serum creatinine is trending down slowly. Adequate urine output. Physical Examination - Vital Signs Temperature: 96.9 F Blood Pressure: 135/88 Pulse: 82 Respirations: 16 Pulse Ox (%): 99 - Physical Exam General: Alert, In no apparent distress, Oriented x3 Respiratory: Clear to auscultation bilaterally, Normal air movement Cardiovascular: No edema, Regular rate/rhythm, Normal S1 S2 Gastrointestinal: Normal bowel sounds, Soft and benign, No tenderness Integumentary: No rashes Neurological: Other (Nonfocal) - Studies Microbiology Data (last 24 hrs): 01/08/20 03:55 Clean Catch Urine [place] Count - Final 01/08/20 03:55 Clean Catch Urine - Final No growth. Assessment And Plan - Current Problems (Diagnosis) (1) Acute worsening of stage 4 chronic kidney disease Current Visit: Yes Status: Acute (2) IgA deficiency Current Visit: Yes Status: Acute (3) COVID-19 virus infection Current Visit: Yes Status: Acute - Plan Continue IV hydration. IV fluids changed to D5W to treat hypernatremia. Nephrology is following Serum creatinine is trending down slowly Continue antihypertensives. Hydralazine p.r.n. for BP spikes. Patient is asymptomatic from the COVID 19 infection.
[2020-01-11] MEDS: LEVOTHYROXINE SOD 0.112 MG TAB PO SCH (05:17)
[2020-01-11] MEDS: D5W 1,000 ML IV SCH ×3 (05:17→16:50)
[2020-01-11 05:46] LABS: Albumin 1.5 g/dL (3.4-5.0); Phosphorus 5.3 mg/dL (2.5-4.9); Potassium 4.7 mmol/L (3.5-5.1)
[2020-01-11] MEDS: NEBIVOLOL HCL 5 MG TAB PO SCH (08:25)
[2020-01-11] MEDS: allopurinoL 100 MG TAB PO SCH (08:25)
[2020-01-11] MEDS: HEPARIN 5000 UNIT/ML 1 ML VIAL SQ SCH ×2 (08:26→21:02)
--- NOTE | 2020-01-11 10:48 | P.PN ---
Subjective Date of Service: 01/11/20 Primary Care Provider: Dr. Burns Chief Complaint: Acute renal failure Patient has no complain. Serum creatinine slightly increased today. Physical Examination - Vital Signs Temperature: 97.4 F Blood Pressure: 154/105 Pulse: 63 Respirations: 12 Pulse Ox (%): 100 - Physical Exam General: Alert, In no apparent distress Respiratory: Clear to auscultation bilaterally, Normal air movement Cardiovascular: No edema, Regular rate/rhythm, Normal S1 S2 Gastrointestinal: Soft and benign, No tenderness Musculoskeletal: No swelling, No erythema Integumentary: No rashes - Studies Microbiology Data (last 24 hrs): 01/08/20 03:55 Clean Catch Urine [place] Count - Final 01/08/20 03:55 Clean Catch Urine - Final No growth. Assessment And Plan - Current Problems (Diagnosis) (1) Acute worsening of stage 4 chronic kidney disease Current Visit: Yes Status: Acute (2) IgA deficiency Current Visit: Yes Status: Acute (3) COVID-19 virus infection Current Visit: Yes Status: Acute - Plan Continue IV hydration. Nephrology is following Serum creatinine did not respond to D5 water. Continue antihypertensives. Hydralazine p.r.n. for BP spikes. Patient is asymptomatic from the COVID 19 infection. Continue to monitor renal function.
--- NOTE | 2020-01-11 14:57 | P.PN ---
Subjective Date of Service: 01/11/20 Primary Care Provider: Dr. Burns Chief Complaint: Acute renal failure Subjective Pt with Hx of IgA nephropathy , CKD IV and HTN admitted with fever, COVID 19 positive , Pt was hypotesnive Today no overnight events cr stable will cont to monitor labs till Monday if no improvement in RFT by Monday , will consider to discharge pt and refer for periotnial dialysis catheter placement as an OP , but if pt cr increase +/i hyperkalemia and aciosis pt will need to start on HD this admission Physical exam general: AAOX3, NAD , obese Neck; Supple, No elevated JVD hear: RRR, normal S1,2 no murmur or rub Chest: CTAB, no rlaes or wheezes Abdomen: Soft , Nt Extremities No edema or ulcer Assessment And Plan: MEY on CKD IV possibly due to dehydration +/- ischemic ATN +/- COVID cont IV will switch to D5W avoid NSAID and contrast if no improvement in RFT by Monday , will consider to discharge pt and refer for periotnial dialysis catheter placement as an OP , but if pt cr increase +/i hyperkalemia and aciosis pt will need to start on HD this admission HTN bp controlled now Hypernatremia saline induced cont D5W COVID 19 cont supportive care Physical Examination - Vital Signs Temperature: 97.5 F Blood Pressure: 154/105 Pulse: 66 Respirations: 14 Pulse Ox (%): 100
[2020-01-12 00:50] VITALS: O2SAT 100
[2020-01-12 05:51] LABS: Albumin 1.6 g/dL (3.4-5.0); Phosphorus 5.2 mg/dL (2.5-4.9); Potassium 5.3 mmol/L (3.5-5.1)
[2020-01-12] MEDS: LEVOTHYROXINE SOD 0.112 MG TAB PO SCH (06:18)
[2020-01-12] MEDS: D5W 1,000 ML IV SCH (06:19)
[2020-01-12] MEDS: allopurinoL 100 MG TAB PO SCH (09:34)
[2020-01-12] MEDS: HEPARIN 5000 UNIT/ML 1 ML VIAL SQ SCH (09:34)
[2020-01-12] MEDS: NEBIVOLOL HCL 5 MG TAB PO SCH (09:34)
[2020-01-12 10:59] LABS: HBsAG Nonreactive (Nonreactive)
[2020-01-12] MEDS ORDERED: SOD POLYSTYREN SUL 15 GM/60 ML UCUP PO ONE (11:33)
--- NOTE | 2020-01-12 11:59 | P.PN ---
Subjective Date of Service: 01/12/20 Primary Care Provider: Dr. Burns Chief Complaint: Acute renal failure Subjective Pt with Hx of IgA nephropathy , CKD IV and HTN admitted with fever, COVID 19 positive , Pt was hypotesnive Today no overnight events cr slightly improved pt wants to go home, will give kayexalate today and prescribe Vekltassa vs Lokelma as an OP to be discharged on Sodium bicarbonate 650mg bid pt to follow with Dr Gottlieb tomorrow or next week Physical exam general: AAOX3, NAD , obese Neck; Supple, No elevated JVD hear: RRR, normal S1,2 no murmur or rub Chest: CTAB, no rlaes or wheezes Abdomen: Soft , Nt Extremities No edema or ulcer Assessment And Plan: MEY on CKD IV possibly due to dehydration +/- ischemic ATN +/- COVID cont IV will switch to D5W avoid NSAID and contrast no indication for renal replacement therapy at this time , but pt might need OP dialysis preparation , pt interested in PD HTN bp controlled now Hyperkalmei a will give kaeyxalate today Vekltassa vs Lokelma as an OP Hypernatremia saline induced encourage to increase fluid intake COVID 19 cont supportive care Physical Examination - Vital Signs Temperature: 98.2 F Blood Pressure: 127/99 Pulse: 82 Respirations: 10 Pulse Ox (%): 100
[2020-01-12] MEDS: CALCITROL 0.25 MCG CAP PO SCH (12:08)
--- NOTE | 2020-01-12 13:29 | P.DS ---
Admission Date: 01/08/20 Discharge Date: 01/12/20 Primary Care Provider: Dr. Burns Disposition: ROUTINE DISCHARGE Discharge Condition: FAIR Reason for Admission: Acute renal failure - Problems (1) Acute worsening of stage 4 chronic kidney disease Current Visit: Yes Status: Acute (2) IgA deficiency Current Visit: Yes Status: Acute (3) COVID-19 virus infection Current Visit: Yes Status: Acute Brief History of Present Illness: 34-year-old gentleman with a history of IgA nephropathy, gout, history of DVT and hypertension presented to the emergency department with a complaint of fatigue, malaise and low blood pressure at 90/50. Patient tested positive for COVID 19 prior to the ED presentation. His blood work showed worse kidney failure with creatinine up to 6.44, compared to a baseline of 3.5 to 3.8. Patient is on multiple blood pressure medications. He was admitted for further management. Hospital Course: Patient admitted to the medical floor. His blood pressure medications with held briefly. Patient was seen and evaluated by nephrology. He was treated with IV hydration and multiple predialysis test requested. Hepatitis panel was negative. Patient serum creatinine responded slowly to IV hydration. Overall his serum creatinine decreased to 5.4. He also had intermittent hyperkalemia. Of note patient has been on Eliquis for DVT. Eliquis was healed due to markedly decreased creatinine clearance. Patient may require hemodialysis and for that matter dialysis catheter. His Eliquis is held on discharge until he follows with Dr. Gottlieb who will decide when to start hemodialysis. Patient was asymptomatic during the hospital stay. His blood pressure medications were resumed except doxazosin. He is currently normotensive without it. He is also prescribed sodium bicarb per nephrology recommendation. Vital Signs/Physical Exam: Temp Pulse Resp BP Pulse Ox 98.2 F 82 10 L 127/99 H 100 01/12/20 11:59 01/12/20 11:59 01/12/20 11:59 01/12/20 11:59 01/12/20 11:59 General: Alert, In no apparent distress, Oriented x3 HEENT: Mucous membr. moist/pink Neck: Supple, JVD not distended Respiratory: Clear to auscultation bilaterally, Normal air movement Cardiovascular: No edema, Regular rate/rhythm, Normal S1 S2 Gastrointestinal: Normal bowel sounds, Soft and benign, Non-distended, No tenderness Musculoskeletal: No swelling, No erythema Integumentary: No rashes Neurological: Normal strength at 5/5 x4 extr Laboratory Data at Discharge: WBC 10.8 K/uL (4.3-10.9) D 01/09/20 03:13 Hgb 14.3 g/dL (13.6-17.9) 01/09/20 03:13 Hct 42.1 % (39.6-49.0) 01/09/20 03:13 Plt Count 191 K/uL (152-406) D 01/09/20 03:13 Sodium 147 mmol/L (136-145) H 01/12/20 04:40 Potassium 5.3 mmol/L (3.5-5.1) H 01/12/20 04:40 BUN 62 mg/dL (7-18) H 01/12/20 04:40 Creatinine 5.40 mg/dL (0.55-1.3) H* 01/12/20 04:40 Glucose 95 mg/dL (74-106) 01/12/20 04:40 Uric Acid 9.1 mg/dL (3.5-7.2) H 01/08/20 03:16 Uric Acid Cancelled 01/08/20 03:16 Phosphorus 5.2 mg/dL (2.5-4.9) H 01/12/20 04:40 Magnesium 1.8 mg/dL (1.8-2.4) 01/09/20 03:13 Home Medications: Nebivolol HCl [Bystolic*] 1 tab PO BEDTIME 04/19/16 cloNIDine HCL [Catapres*] 0.1 mg PO BID #60 tab 04/22/16 Etanercept [Enbrel] 50 mg SQ EVERY 7TH DAY 01/07/20 Evolocumab [Repatha Sureclick] 1 syr SQ SEECOM 01/07/20 Ezetimibe [Zetia*] 10 mg PO DAILY 01/07/20 Febuxostat [Uloric] 80 mg PO DAILY 01/07/20 Icosapent Ethyl [Vascepa 1 gm Cap] 1 gm PO BID 01/07/20 Levothyroxine [Synthroid*] 112 mcg PO DAILY 01/07/20 Ubidecarenone [Co Q-10] 200 mg PO DAILY 01/07/20 Calcitrol [Rocaltrol*] 0.25 mcg PO Q48H #15 cap 01/12/20 Sodium Bicarbonate 650 mg PO BID #60 tablet 01/12/20 New Medications: Calcitrol [Rocaltrol*] 0.25 mcg PO Q48H #15 cap Sodium Bicarbonate 650 mg PO BID #60 tablet Patient Discharge Instructions: Please self isolate for another 4 days. Diet: Renal Activity: Ad julian Followup: Radha Kelsey MD [COURTESY - CAN ADMIT] - 1-2 Days Time spent managing pt's care (in minutes): 40
[2020-01-12 14:12] VITALS: TEMP 98
[2020-01-12 14:13] VITALS: BP 166/89
[2020-01-12 23:37] LABS: Albumin, (SPE) 2.3 g/dL (3.8-4.8); Alpha-1-Globulins 0.3 g/dL (0.2-0.3); Alpha-2-Globulins 0.9 g/dL (0.5-0.9); Gamma Globulins 1.1 g/dL (0.8-1.7); INTERPRETATION REPORT
[2020-01-13 13:02] LABS: HIV AG/AB 4TH GEN Non-reactive (Non-reactive)
== END 2020-01-12 14:00 | disposition home or self-care (01) | DRG 177 ==
LOC: ER 13:00 → ERHOLD 18:32 → 4TH 19:38 → OBSVTOIN 01-08 08:23 → 3RD-ICU 01-10 18:51
PROVIDERS: ADMIT Family Medicine; ATTEND Internal Medicine
DX: U07.1 COVID-19 (principal); J12.89 Other viral pneumonia; N17.9 Acute kidney failure, unspecified; D80.2 Selective deficiency of immunoglobulin A [IgA]; N18.4 Chronic kidney disease, stage 4 (severe); N25.81 Secondary hyperparathyroidism of renal origin; E03.9 Hypothyroidism, unspecified; M10.9 Gout, unspecified; E87.5 Hyperkalemia; E86.0 Dehydration; I12.9 Hypertensive chronic kidney disease with stage 1 through stage 4 chronic kidney disease, or unspecified chronic kidney disease; E78.5 Hyperlipidemia, unspecified; Z86.718 Personal history of other venous thrombosis and embolism; Z79.890 Hormone replacement therapy; Z79.899 Other long term (current) drug therapy; Z88.1 Allergy status to other antibiotic agents; Z79.01 Long term (current) use of anticoagulants
CPT/HCPCS: 36415; 71045; 76770; 80048; 80069; 81003; 81015; 82550; 82570; 82728; 83520; 83735; 83970; 84100; 84145; 84156; 84165; 84550; 85025; 85379; 86021; 86038; 86140; 86160; 86317; 86334; 86705; 86706; 86803; 87040; 87086; 87088; 87340; 87389; 96361; 96374; 99285; G0378; J1100; J1644; J3475; J7030; J7040; U0003

== ENCOUNTER 2020-09-28 10:23 | Emergency (ER) | payer BC ==
--- OUTSIDE RECORDS SUMMARY | 2020-09-28 10:27 | XMS REPORT | Continuity of Care Document ---
:1985 Author Organization [facility] t Address [address] [place] [address] Care Team Providers Name Role Phone KENDRA Attending Clinician Unavailable ANA LUISA Attending Clinician Unavailable Problems Condition Condition Condition Status Onset Resolution Last Treating Co mments Source Name Details Category Date Date Treatment Clinician Date Malabsorpt Malabsorpt Problem Active U nivers ion due to ion due to it [place] of intoler[place] intoleranc [place], not e, not Physici elsewhere elsewhere ans classified classified Malnutriti Malnutriti Problem Active U nivers on on [place]y of [place] Physici ans Vitamin D Vitamin D Problem Active Uni vers deficiency deficiency it y of [place] Physici ans Allergies, Adverse Reactions, Alerts Allergy Allergy Status Severity Reaction(s) Onset Inactive Treating Comm ents Source Name Type Date Date Clinician NSAIDs Allergy Active Univers to drug ity of (finding [place] ) Physici ans Sulfa Allergy Active [facility] Drugs to drug ity of (finding [place] ) Physici ans Medications Ordered Filled Start Stop Current Ordering Indication Dosage Frequency Signature Comments Components Source Medication Medication Date Date Medication? Clinician (SIG) Name Name Vitamin D Vitamin D Yes NITA TAKE 1 Univers (Ergocalcif (Ergocalcif 4-12 M[employer]GAN [employer] ity of pamela) 1.25 pamela) 1.25 00:00: WEEKLY. [place] MG (95389 MG (81116 00 Physi ci [place]) Oral [place]) Oral ans Capsule Capsule Vital Signs Vital Name Observation Time Observation Value Comments Source Body height 2020-08-19 69 [in_us] [facility] 10:01:00 [place] Physician s Weight 2020-08-19 292.8 [lb_av] [facility] 10:01:00 [place] Physician s Body mass index 2020-08-19 43.24 kg/m2 [place] (BMI) [Ratio] 10:01:00 [place] Physicia ns Body temperature 2020-08-19 97.4 [degF] Method: [facility] 10:01:00 Temporal [place] Physician s Heart Rate 2020-08-19 83 /min [facility] 10:01:00 [place] Physician s Systolic blood 2020-08-19 170 mm[Hg] Location: [facility] 10:01:00 Position: [place] Physician s Sitting Diastolic blood 2020-08-19 99 mm[Hg] Location: [facility] 10:01:00 Position: [place] Physician s Sitting Procedures Procedure Date / Time Performing Clinician Source Performed [Q] COMPREHENSIVE 2020-08-19 00:00:00 [facility] METABOLIC PANEL W/eGFR Physician s (REFL) [Q] QUESTASSURED 25-OH 2020-08-19 00:00:00 Unive [facility] [place] VIT D, (D2,D3), LC/MS/MS Physici ans [QL] CBC (INCLUDES 2020-08-19 00:00:00 [facility] DIFF/PLT) Physicians [QL] FOLATE, SERUM 2020-08-19 00:00:00 [facility] Physicians [QL] HEMOGLOBIN A1c 2020-08-19 00:00:00 [facility] Physicians [QL] IRON AND TOTAL IRON 2020-08-19 00:00:00 [facility] BINDING CAPACITY Physicians [QL] LIPID PANEL 2020-08-19 00:00:00 [facility] Physicians [QL] PTH, INTACT 2020-08-19 00:00:00 [facility] (WITHOUT CALCIUM) Physicians [QL] TSH, 3RD GENERATION 2020-08-19 00:00:00 [facility] W/REFLEX TO FT4 Physicians [QL] VITAMIN A (RETINOL) 2020-08-19 00:00:00 [facility] Physicians [QL] VITAMIN B1, WHOLE 2020-08-19 00:00:00 Unive [facility] [place] BLOOD Physicians [QL] VITAMIN B12 2020-08-19 00:00:00 [facility] Physicians [QL] VITAMIN E 2020-08-19 00:00:00 [facility] (TOCOPHEROL) Physicians Encounters Start End Encounter Admission Attending Care Care Encounter Source Date/Time Date/Time Type Type Clinicians Facility Department ID 2020-08-26 2020-08-26 Darlyn KWOKRAJEEV JACK UTP [id number] Univers 13:15:00 13:15:00 t; MAGDI REYES ity of [place], [place] MAGDI REYES Physic i ans 2020-08-19 2020-08-19 AppointJACK [facility] [id number] Univers 09:45:00 09:45:00 t; GERMÁN OROSCO M.D. Invasive Bandar M.D. [facility] Physici ([facility]) ans Results Test Description Test Time Test Comments Results Result Comments Source [QL] IRON AND TOTAL IRON BINDING CAPACITY 2020-08-20 08:11:0 0 Test Item Value Reference Range Interpretation Comme nts IRON, TOTAL (test code = IRON, TOTAL) 75 {mcg/dl} 50-180 N IRON BINDING CAPACITY (test code = IRON BINDING 234 {mcg/dL ca} 25 0-425 CAPACITY) % SATURATION (test code = % SATURATION) 32 {% CALC} 20-48 N [facility] Physicians[QL] CBC (INCLUDES DIFF/PLT)2020-08-20 08:11:00 Test Item Value Reference Range Interpretation Comments WHITE BLOOD CELL COUNT 8.7 {Thousand/u} 3.8-10.8 N (test code = WHITE BLOOD CELL COUNT) RED BLOOD CELL COUNT (test 5.07 {Million/uL} 4.20-5.80 N code = RED BLOOD CELL COUNT) HEMOGLOBIN; Below Low 12.9 g/dl 13.2-17.1 Threshold (test code = 30094-8) HEMATOCRIT; Normal (test 39.4 % 38.5-50.0 N code = 4544-3) MCV; Below Low Threshold 77.7 fL 80.0-100.0 (test code = 787-2) MCHC; Normal (test code = 32.7 g/dl 32.0-36.0 N 41535-6) RDW; Normal (test code = 14.7 % 11.0-15.0 N 788-0) PLATELET COUNT; Normal 196 {Thousand/u} 140-400 N (test code = 777-3) MPV; Normal (test code = 10.4 fL 7.5-12.5 N 29492-8) ABSOLUTE NEUTROPHILS (test 5203 {cells/uL} 5608-1478 N code = ABSOLUTE NEUTROPHILS) ABSOLUTE LYMPHOCYTES (test 2393 {cells/uL} 850-3900 N code = ABSOLUTE LYMPHOCYTES) ABSOLUTE MONOCYTES (test 887 {cells/uL} 200-950 N code = ABSOLUTE MONOCYTES) ABSOLUTE EOSINOPHILS (test 157 {cells/uL} 15-500 N code = ABSOLUTE EOSINOPHILS) ABSOLUTE BASOPHILS (test 61 {cells/uL} 0-200 N code = ABSOLUTE BASOPHILS) NEUTROPHILS (test code = 59.8 % N NEUTROPHILS) LYMPHOCYTES (test code = 27.5 % N LYMPHOCYTES) MONOCYTES; Normal (test 10.2 % N code = 23889-5) EOSINOPHILS; Normal (test 1.8 % N code = 20982-5) BASOPHILS; Normal (test 0.7 % N code = 55989-3) [facility] Physicians[QL] PTH, INTACT (WITHOUT CALCIUM)2020-08-20 08:11:00 Test Item Value Reference Interpretation Comments Range PARATHYROID 110 pg/ml 14-64 Interpretive Gu sanna Intact HORMONE, INTACT PTH (test code = Calcium-------- PARATHYROID HORMONE, INTACT) -------Norm al Parathyroid Normal NormalHypoparat hyroidism Low or Low Norm al LowHyperparathy roidism Primary Normal or High High Secondary High Normal or Low Tertiary High HighNon-Parathy roid Hypercalcemia Low or Low Normal High [facility] Physicians[QL] VITAMIN E (TOCOPHEROL)2020-08-20 08:11:00 Test Item Value Reference Range Interpretation Comments ALPHA-TOCOPHEROL 13.7 mg/L Reference R nancy (test code = 5.7-19.9 mg/L ALPHA-TOCOPHEROL) Levels of alpha-tocopherol <5 mg/L are consistent with Vitamin E deficiency in adults.Vitamin supplementation within 24 hours prior to blood draw may affect the accuracy of results. T his test was developed and i ts analytical perf ormance characteristics have been determined by [employer]. It has not been cleared or approved by theFDA. This as say has been validated pursu ant to the CLIA regulation s and is used for clinic al purposes. [id number] 1.4 mg/L <4.4 This test was developed and PAMELA (test code = its analyt ical performance [id number] characteri stics have been PAMELA) determined by [employer]. It has not been cleared or approved by theFDA. This as say has been validated pursu ant to the CLIA regulation s and is used for clinic al purposes. Reference Range 5.7-19.9 mg/L Levels of alpha-tocopherol <5 mg/L are consistent with Vitamin E deficiency in adults.Vitamin supplementation within 24 hours prior to blood draw may affect the accuracy of results. This test was developed and its analytical performance characteristics have been determined by [employer]. It has not been cleared or approved by theFDA. This assay has been validated pursuant to the CLIA regulations and is used for clinical purposes.[facility] Physicians[QL] FOLATE, [id number] 08:11:00 Test Item Value Reference Range Interpretation Comments FOLATE, SERUM (test 11.1 ng/ml N Referenc e Range code = FOLATE, Low: SERUM) <3.4 Borderline: 3.4-5.4 Normal: >5.4 [facility] Physicians[QL] VITAMIN [id number] 08:11:00 Test Item Value Reference Range Interpretation Comments VITAMIN B12 (test code = VITAMIN 1005 pg/ml 200-1100 N B12) [facility] Physicians[QL] TSH, 3RD GENERATION W/REFLEX TO [id number] 08:11:00 Test Item Value Reference Range Interpretation Comments TSH, 3RD GENERATION W/REFLEX TO 2.07 {MIU/L} 0.40-4.50 N FT4 (test code = TSH, 3RD GENERATION W/REFLEX TO FT4) [facility] Physicians[QL] VITAMIN B1, WHOLE [id number] 08:11:00 Test Item Value Reference Range Interpretation Comments VITAMIN B1, WHOLE 85 nmol/L 78-185 Vitamin north pplementation BLOOD (test code = within 24 hours prior VITAMIN B1, WHOLE toblood dr rincon may affect BLOOD) the accuracy of results. This test was d neal and its analyti abel performance characteristics have been determined by [employer]. It has not been cleared or approved by theFDA. This assay has been validated pursuant to the CLIA regula tions and is used for cli nical purposes. [facility] Physicians[QL] HEMOGLOBIN [id number] 08:11:00 Test Item Value Reference Range Interpretation Comments HEMOGLOBIN A1c; 5.0 {% of <5.7 N For the purp ose of Normal (test code total} screening for the = 4548-4) presence ofdiab etes: <5.7% Con sistent with the absenc e of diabetes5.7-6.4 % Consistent with increased risk for diabetes (prediabetes)> or =6.5% Consistent wit h diabetes This a ssay result is consi stent with a decrease d riskof diabetes. Curre ntly, no consensus exist s regarding use ofhemoglobin A1 c for diagnosis of di abetes in children. Ac cording to [place] [employer] (ADA)guidelines , hemoglobin A1c <7.0% represents optimalcontrol in non- di abetic patients. Differentmetric s may apply to specif ic patient populat ions. Standards of Me dical Care in Diabete s(ADA). [facility] Physicians[QL] VITAMIN A (RETINOL)2020-08-20 08:11:00 Test Item Value Reference Range Interpretation Comments VITAMIN A (test 143 {mcg/dl} 38-98 Clin Chem Vol. code = VITAMIN A) 34.No.8. p [id number]. 1998Vitamin supplementation within 24 hours prior to blood draw may affect the accuracy of res ults. This test was d neal and its analyti abel performance characteristics have been determined by [employer]. It has not been cleared or approved by theFDA. This assay has been valida jd pursuant to the CLIA regulations and is used for clinical pu rposes. REPORT COMMENT:FASTING:[facility][Q] QUESTASSURED 25-OH VIT D, (D2,D3), LC/MS/[id number] 08:11:00 Test Item Value Reference Range Interpretation Comments VITAMIN D, <4.0 ng/ml 30-100 (Note)Reference range: Not 25-OH, D2 established Thi s test was (test code = developed and i ts analytical VITAMIN D, performancechar acteristics have 25-OH, D2) been determined by [employer]. It has not been cleared or approved by the US Food and Drug Administra tion. Thisassay has been valida jd pursuant to the CLIA regula tion and is usedfor Clinica l purposes.[facility]ed [id number] [facility] [place] [address] [phone] 00MicSandy Lara N ote 1 Note 1 For additional info rmation, please refer to http://educatio n.Field DailiesDiagnostShaker/faq/FAQ1 99 (This link is being provided for informational/e ducational purposes only.) VITAMIN D, 20 ng/ml Reference range : Not 25-OH, D3 established (test code = VITAMIN D, 25-OH, D3) Reference range: Not establishedREPORT COMMENT:FASTING:[facility] Physicians[] LIPID [id number] 08:11:00 Test Item Value Reference Range Interpretation Comments CHOLESTEROL, TOTAL; 144 mg/dl <200 N Normal (test code = 2092-) HDL CHOLESTEROL; 42 mg/dl See_Comment N [Automated message] Normal (test code = The syst em which 2085-01) generated this result transmitted ref erence range: > OR = 4 0. The reference range was not used to int erpret this result as normal/abnormal . TRIGLYCERIDES; 257 mg/dl <150 If a non-fast ing Above High specimen was Threshold (test collected, code = 2571-8) considerrepea t triglyceride te sting on a fasting specimenif clin ically indicated. Ahmet burden et al. J. of Clin. Lipidol. 2015;9:129-169. LDL-CHOLESTEROL; 68 {MG/DL N Reference r nancy: <100 Normal (test code = ABEL} Desirabl e range <100 71583-4) mg/dL for prima ry prevention; <7 0 mg/dL for patients wi th CHD or diabetic pat ients with > or = 2 C HD risk factors. LDL-C is now calculated kely vidal the Tony calculation, wh ich is a validated nov el method cirilo vidal better accuracy than the Friedewald equation in the estimation of L DL-C. Rohit SS et al . EPI. 2013;310(19): 5688-1103 (http://educati on.Ques tDiagnostics.co m/faq/F AQ164) CHOL/HDLC RATIO 3.4 {CALC} <5.0 N (test code = CHOL/HDLC RATIO) NON HDL CHOLESTEROL 102 {MG/DL <130 N For rakel ents with (test code = NON ABEL} diabetes pl us 1 major HDL CHOLESTEROL) ASCVD risk factor, treating to a non-HDL-C goal of <100 mg/dL (LDL-C of <70 mg/dL) is consi dered a therapeutic opt ion. [facility] Physicians[Q] COMPREHENSIVE METABOLIC PANEL W/eGFR (REFL) 2020-08-20 08:11:00 Test Item Value Reference Range Interpretation Comments GLUCOSE; Normal 116 mg/dl 65-139 N Non-fasting (test code = 1547-9) referen ce interval UREA NITROGEN (BUN) 75 mg/dl 7-25 (test code = UREA NITROGEN (BUN)) CREATININE (test 5.65 mg/dl 0.60-1.35 code = CREATININE) eGFR NON-AFR. 12 See_Comment [Automated me ssage] PRYDEINIG (test code {ML/MIN/1.7} The syst em which = eGFR NON-AFR. generated th is PRYDEINIG) result transmit jd reference range : > OR = 60. The reference range was not used to interpret this result as normal/abnormal . eGFR 14 See_Comment [Automated mes laverne] PRYDEINIG (test code {ML/MIN/1.7} The syst em which = eGFR generated thi s PRYDEINIG) result transmit jd reference range : > OR = 60. The reference range was not used to interpret this result as normal/abnormal . BUN/CREATININE RATIO 13 {CALC} 6-22 N (test code = BUN/CREATININE RATIO) SODIUM (test code = 142 mmol/L 135-146 N SODIUM) POTASSIUM (test code 5.0 mmol/L 3.5-5.3 N = POTASSIUM) CHLORIDE (test code 112 mmol/L 98-110 = CHLORIDE) CARBON DIOXIDE (test 21 mmol/L 20-32 N code = CARBON DIOXIDE) CALCIUM (test code = 9.4 mg/dl 8.6-10.3 N CALCIUM) PROTEIN, TOTAL (test 7.0 g/dl 6.1-8.1 N code = PROTEIN, TOTAL) ALBUMIN (test code = 4.0 g/dl 3.6-5.1 N ALBUMIN) GLOBULIN (test code 3.0 {G/DL 1.9-3.7 N = GLOBULIN) CALC} ALBUMIN/GLOBULIN 1.3 {CALC} 1.0-2.5 N RATIO (test code = ALBUMIN/GLOBULIN RATIO) BILIRUBIN, TOTAL; 0.4 mg/dl 0.2-1.2 N Normal (test code = 04547-3) ALKALINE PHOSPHATASE 59 u/l 36-130 N (test code = ALKALINE PHOSPHATASE) AST; Normal (test 26 u/l 10-40 N code = 1916-6) ALT; Normal (test 43 u/l 9-46 N code = 1742-6) [facility]
[2020-09-28] MEDS ORDERED: HYDROCODONE/APAP 10/325 TAB ONE (11:43)
[2020-09-28] MEDS ORDERED: TETANUS & DIPHTHERIA TOX,ADULT 0.5 ML VIAL ONE (11:43)
--- NOTE | 2020-09-28 13:37 | RAD REPORT ---
EXAM DESCRIPTION: RAD - Ankle Left 3 View - 09/28/2020 12:54 pm CLINICAL HISTORY: PAIN, ankle injury, medial ankle laceration COMPARISON: Ankle Left 3 View dated 10/17/2015 FINDINGS: No fracture, dislocation or periosteal reaction. No joint effusion seen. No joint space na rrowing. Soft tissue injury is evident medially. No air or foreign body in the soft tissues. IMPRESSION: No acute left ankle bone or joint finding. No air or foreign body in the soft tissues.
--- NOTE | 2020-09-28 13:44 | ER ---
Nurse's Notes [facility] Name: Roly Guy Jr Age: 35 yrs Sex: Male : 1985 Arrival Date: 09/28/2020 Time: 10:30 Bed 5 Private MD: Diagnosis: Laceration without foreign body, left ankle Presentation: 09/28 10:43 Chief complaint: Patient states: "I had a side by side roll on my left leg early jd3 Monday morning. inside position of the ankle has the laceration and it is pretty deep.". Coronavirus screen: At this time, the client does not indicate any symptoms associated with coronavirus-19. Ebola Screen: Patient negative for fever greater than or equal to 101.5 degrees Fahrenheit, and additional compatible Ebola Virus Disease symptoms. Initial Sepsis Screen: Does the patient meet any 2 criteria? No. Patient's initial sepsis screen is negative. Does the patient have a suspected source of infection? No. Patient's initial sepsis screen is negative. Risk Assessment: Do you want to hurt yourself or someone else? Patient reports no desire to harm self or others. Onset of symptoms was September 26, 2020. 10:43 Method Of Arrival: Wheelchair jd3 10:43 Acuity: KAITLIN 3 jd3 Historical: - Allergies: 10:50 NSAIDS; jd3 10:50 Sulfa (Sulfonamide Antibiotics); jd3 - Home Meds: 10:50 levothyroxine 112 mcg tab 1 tab once daily [Active]; Bystolic 20 mg Oral tab 1 tab once jd3 daily [Active]; Uloric 80 mg Oral tab 1 tab once daily [Active]; Cardura 2 mg Oral tab 1 tab twice a day [Active]; calcitriol 0.25 mcg Oral cap [Active]; Eliquis 2.5 mg Oral tab 1 tab 2 times per day [Active]; vescepa 1gm twice a day [Active]; Repatha Syringe subcutaneous every 2 wks [Active]; CoQ-10 200 mg cap Oral daily [Active]; ezetimibe 10 mg Oral 1 tab once daily [Active]; Enbrel 50 mg/mL (0.98 mL) subcutaneous syrg 1 mL once wkly [Active]; sodium bicarbonate 650 mg Oral tab [Active]; lokelma 10 gram TID [Active]; hydralazine 50 mg Oral tab 1 tab 2 times per day [Active]; - PMHx: 10:50 DVT; Hyperlipidemia; Hypothyroidism; Psoriatic Arthritis; kidney problems; St 3; jd3 psoriasis; Hypertension; IGA Neuropathy; High Cholesterol; CKD stage 3; Gout; Rheumatoid Arthritis; - PSHx: 10:50 None; jd3 - Immunization history:: Adult Immunizations up to date, Last tetanus immunization: unknown. - Social history:: Smoking status: Patient denies any tobacco usage or history of. Screenin:19 Fall Risk Secondary diagnosis (15 points) impaired mobility, Ambulatory Aid- ll1 Crutches/Cane/Walker (15 pts). Total Ly Fall Scale indicates Low Risk Score (25-44 pts). Fall prevention measures have been instituted. Side Rails Up X 2 Frequent Obs/Assesments occuring As available Patient and Family Educated on Fall Prevention Program and strategies. 11:21 Abuse screen: Denies threats or abuse. Nutritional screening: No deficits noted. ll1 Tuberculosis screening: No symptoms or risk factors identified. Assessment: 11:19 General: Appears in no apparent distress. Behavior is calm, cooperative, appropriate ll1 for age. Pain: Complains of pain in L foot Quality of pain is described as aching, Aggravated by increased activity. Neuro: No deficits noted. Derm: Skin is pink, warm \\T\\ dry. Skin temperature is warm Wound noted laceration L inner foot (heel area) <6 cm laceration, Slightly healing. Mo redness or drainage. Happened on Monday. Reports pain. Musculoskeletal: Circulation, motion, and sensation intact. Capillary refill < 3 seconds, Range of motion: intact in all extremities, Swelling present in L foot Reports pain in L foot. Injury Description: Crush injury. 12:20 Reassessment: No changes from previously documented assessment. Patient and/or family ll1 updated on plan of care and expected duration. Pain level reassessed. 13:20 Reassessment: No changes from previously documented assessment. Patient and/or family ll1 updated on plan of care and expected duration. Pain level reassessed. 14:17 Reassessment: No changes from previously documented assessment. Patient and/or family ll1 updated on plan of care and expected duration. Pain level reassessed. Vital Signs: 10:50 BP 130 / 91; Pulse 83; Resp 17 S; Temp 97.3(TE); Pulse Ox 98% on R/A; Weight 133.81 kg jd3 (R); Height 5 ft. 9 in. (175.26 cm) (R); Pain 7/10; 14:59 BP 153 / 100; Pulse 74; Resp 17; Pulse Ox 98% ; ll1 10:50 Body Mass Index 43.56 (133.81 kg, 175.26 cm) jd3 ED Course: 10:30 Patient arrived in ED. am2 10:45 Triage completed. jd3 10:51 Arm band placed on. jd3 11:12 Jarod Renner, REUBEN is PHCP. pm1 11:12 William Villeda MD is Attending Physician. pm1 11:18 Steffi Kidd, MYRON is Primary Nurse. ll1 11:21 Patient has correct armband on for positive identification. Bed in low position. Call ll1 light in reach. Side rails up X 1. Cardiac monitoring not applicable on this patient. 12:51 Ankle Left 3 View XRAY Sent. ll1 12:54 Ankle Left 3 View XRAY In Process Unspecified. EDMS 13:30 Patient did not have IV access during this emergency room visit. Dressings: Marissa ll1 non-adherent dressing Steri strips. air splint applied LLE. Tolerated well. Wound care: to laceration located on left foot was cleaned with Hibiclens, irrigated with hibiclenze Patient tolerated well. 14:59 No provider procedures requiring assistance completed. ll1 Administered Medications: 11:29 Drug: Tetanus-Diphtheria Toxoid Adult 0.5 ml {Financial Aid Manager: [employer]. Exp: ll1 11/10/2021. Lot #: [id number]. } Route: IM; Site: right deltoid; 12:51 Follow up: Response: No adverse reaction; RASS: Alert and Calm (0) ll1 11:31 Drug: [place] (HYDROcodone-acetaminophen) 10 mg-325 mg 1 tabs Route: PO; ll1 13:55 Follow up: Response: No adverse reaction; Pain is decreased; RASS: Alert and Calm (0) ll1 13:55 Drug: Ancef (cefazolin) 1 grams Route: IM; Site: right gluteus; ll1 15:00 Follow up: Response: No adverse reaction; RASS: Alert and Calm (0) [place] Outcome: 13:43 Discharge ordered by . pm1 14:17 Patient left the ED. ll1 14:17 Discharged to home via wheelchair. ll1 14:17 Condition: stable 14:17 Discharge instructions given to patient, family, Instructed on discharge instructions, follow up and referral plans. medication usage, wound care, Demonstrated understanding of instructions, follow-up care, medications, wound care, Prescriptions given X 2. Signatures: Dispatcher [employer] EDNV Jarod Renner NP AUTO CRANE DRIVER pm1 Chichi Friend am2 Fidencio Mclean RN RN jd3 Steffi Kidd RN RN ll1 Corrections: (The following items were deleted from the chart) 10:51 10:45 Immunization history: Adult Immunizations up to date, lia fitzgerald
--- NOTE | 2020-09-28 13:44 | EDPHYS ---
Physician Documentation [facility] Name: Roly Guy Jr Age: 35 yrs Sex: Male : 1985 Arrival Date: 09/28/2020 Time: 10:30 Bed 5 Private MD: ED Physician William Villeda HPI: 09/28 12:26 This 35 yrs old Black Male presents to ER via Wheelchair with complaints of Foot pm1 Injury, Laceration To Foot. 12:26 The patient presents with a crush injury, a laceration. The complaints affect the pm1 medial aspect of left foot. Context: The problem was sustained outdoors, resulted from a crush injury, 4 herrera, the patient can fully bear weight, the patient is able to ambulate, Problem is a result from a previous injury: No. Onset: The symptoms/episode began/occurred 2 day(s) ago. Modifying factors: the symptoms are aggravated by weight bearing. Associated signs and symptoms: The patient has no apparent associated signs or symptoms, Pertinent negatives fever, numbness, swelling, tingling. Treatment prior to arrival includes: has been cleaning and dressing wound. Severity of symptoms: in the emergency department the symptoms have improved. The patient has not experienced similar symptoms in the past. The patient has not recently seen a physician. Historical: - Allergies: 10:50 NSAIDS; jd3 10:50 Sulfa (Sulfonamide Antibiotics); jd3 - Home Meds: 10:50 levothyroxine 112 mcg tab 1 tab once daily [Active]; Bystolic 20 mg Oral tab 1 tab once jd3 daily [Active]; Uloric 80 mg Oral tab 1 tab once daily [Active]; Cardura 2 mg Oral tab 1 tab twice a day [Active]; calcitriol 0.25 mcg Oral cap [Active]; Eliquis 2.5 mg Oral tab 1 tab 2 times per day [Active]; vescepa 1gm twice a day [Active]; Repatha Syringe subcutaneous every 2 wks [Active]; CoQ-10 200 mg cap Oral daily [Active]; ezetimibe 10 mg Oral 1 tab once daily [Active]; Enbrel 50 mg/mL (0.98 mL) subcutaneous syrg 1 mL once wkly [Active]; sodium bicarbonate 650 mg Oral tab [Active]; lokelma 10 gram TID [Active]; hydralazine 50 mg Oral tab 1 tab 2 times per day [Active]; - PMHx: 10:50 DVT; Hyperlipidemia; Hypothyroidism; Psoriatic Arthritis; kidney problems; St 3; jd3 psoriasis; Hypertension; IGA Neuropathy; High Cholesterol; CKD stage 3; Gout; Rheumatoid Arthritis; - PSHx: 10:50 None; jd3 - Immunization history:: Adult Immunizations up to date, Last tetanus immunization: unknown. - Social history:: Smoking status: Patient denies any tobacco usage or history of. ROS: 12:26 Constitutional: Negative for fever, chills, and weight loss, Neck: Negative for injury, pm1 pain, and swelling, Cardiovascular: Negative for chest pain, palpitations, and edema, Respiratory: Negative for shortness of breath, cough, wheezing, and pleuritic chest pain, Abdomen/GI: Negative for abdominal pain, nausea, vomiting, diarrhea, and constipation, Back: Negative for injury and pain. 12:26 Eyes: Negative for injury, pain, redness, and discharge, Neuro: Negative for headache, weakness, numbness, tingling, and seizure. 12:26 MS/extremity: Positive for pain, of the left foot. 12:26 Skin: Positive for laceration(s), of the medial aspect of left foot, Negative for abscesses, cellulitis. Exam: 12:26 Constitutional: This is a well developed, well nourished patient who is awake, alert, pm1 and in no acute distress. Head/Face: Normocephalic, atraumatic. Neck: Trachea midline, no thyromegaly or masses palpated, and no cervical lymphadenopathy. Supple, full range of motion without nuchal rigidity, or vertebral point tenderness. No Meningismus. 12:26 Chest/axilla: Normal chest wall appearance and motion. Nontender with no deformity. No lesions are appreciated. 12:26 Cardiovascular: Exam negative for acute changes, Rate: normal, Rhythm: regular, Pulses: no pulse deficits are appreciated. 12:26 Respiratory: Exam negative for acute changes, respiratory distress, shortness of breath. 12:26 Skin: Appearance: normal except for affected area, injury, abrasion(s), small abrasion noted, of the medial aspect of left foot, laceration(s), the wound is approximately 1.5 cm(s), with a depth of 1 cm(s), of the medial aspect of left foot, that can be described as clean, no foreign body, linear, without bleeding, no signs of cellulitis, discharge, abscess. 12:26 Neuro: Exam negative for acute changes, Orientation: is normal, Mentation: is normal, Motor: is normal, moves all fours. Vital Signs: 10:50 BP 130 / 91; Pulse 83; Resp 17 S; Temp 97.3(TE); Pulse Ox 98% on R/A; Weight 133.81 kg jd3 (R); Height 5 ft. 9 in. (175.26 cm) (R); Pain 7/10; 14:59 BP 153 / 100; Pulse 74; Resp 17; Pulse Ox 98% ; ll1 10:50 Body Mass Index 43.56 (133.81 kg, 175.26 cm) jd3 MDM: 11:13 Patient medically screened. pm1 13:21 ED course: Patient has crutches at home. pm1 13:42 Data reviewed: vital signs. Data interpreted: Pulse oximetry: on room air is 98 %. pm1 Interpretation: normal. Counseling: I had a detailed discussion with the patient and/or guardian regarding: the historical points, exam findings, and any diagnostic results supporting the discharge/admit diagnosis, radiology results, the need for outpatient follow up, to return to the emergency department if symptoms worsen or persist or if there are any questions or concerns that arise at home. 13:44 ED course: Patient with laceration to left foot without any signs of cellulitis or pm1 abscess. Wound occurred greater than 48 hours ago. No bleeding present and well healing. No sutures due to risk or trapping infection and will discharge home with abx. 09/28 11:20 Order name: Ankle Left 3 View XRAY; Complete Time: 13:39 pm1 09/28 13:21 Order name: Aircast Ankle Splint; Complete Time: 13:55 pm1 Administered Medications: 11:29 Drug: Tetanus-Diphtheria Toxoid Adult 0.5 ml {Jury Consultant: [employer]. Exp: ll1 11/10/2021. Lot #: [id number]. } Route: IM; Site: right deltoid; 12:51 Follow up: Response: No adverse reaction; RASS: Alert and Calm (0) [facility] 11:31 Drug: [place] (HYDROcodone-acetaminophen) 10 mg-325 mg 1 tabs Route: PO; ll1 13:55 Follow up: Response: No adverse reaction; Pain is decreased; RASS: Alert and Calm (0) ll1 13:55 Drug: Ancef (cefazolin) 1 grams Route: IM; Site: right gluteus; ll1 15:00 Follow up: Response: No adverse reaction; RASS: Alert and Calm (0) ll1 Disposition: 16:00 Co-signature as Attending Physician, William Villeda MD. rn Disposition: 09/28/20 13:43 Discharged to Home. Impression: Laceration without foreign body, left ankle. - Condition is Stable. - Discharge Instructions: Cast or Splint Care, Adult, Foot Contusion, Crutch Use, Nonsutured Laceration Care. - Prescriptions for Keflex 500 mg Oral Capsule - take 1 capsule by ORAL route every 6 hours for 10 days; 40 capsule. Tylenol- Codeine #3 300-30 mg Oral Tablet - take 2 tablets by ORAL route every 4-6 hours As needed; 20 tablet. - Work release form, Medication Reconciliation Form, Thank You Letter, Antibiotic Education, Prescription Opioid Use form. - Follow up: Emergency Department; When: As needed; Reason: Worsening of condition. Follow up: Private Physician; When: 2 - 3 days; Reason: Recheck today's complaints, Continuance of care, Re-evaluation by your physician. - Problem is new. - Symptoms have improved. Signatures: Dispatcher [employer] EDMS William Villeda MD MD rn Marinas, Patrick, BOAT RENTAL CLERK BOAT RENTAL CLERK pm1 Fidencio Mclean RN RN jd3 Lewis, Lynsay, RN RN ll1 Corrections: (The following items were deleted from the chart) 10:51 10:45 Immunization history: Adult Immunizations up to date, jd3 jko 14:17 13:43 09/28/2020 13:43 Discharged to Home. Impression: Laceration without foreign body, ll1 left ankle. Condition is Stable. Forms are Medication Reconciliation Form, Thank You Letter, Antibiotic Education, Prescription Opioid Use. Follow up: Emergency Department; When: As needed; Reason: Worsening of condition. Follow up: Private Physician; When: 2 - 3 days; Reason: Recheck today's complaints, Continuance of care, Re-evaluation by your physician. Problem is new. Symptoms have improved. pm1
[2020-09-28] MEDS ORDERED: CEFAZOLIN SODIUM 1 GM/VIAL ONE (14:05)
[2020-09-28] MEDS ORDERED: WATER FOR INJ,STERILE 10 ML ONE (14:06)
[2020-09-28 14:25] VITALS: BP 130/91; TEMP 97.3; O2SAT 98
[2020-09-28] MEDS ORDERED: dexAMETHasone 10 MG/ML VIAL ONE (15:09)
== END 2020-09-28 14:17 | disposition home or self-care (01) ==
LOC: ER 10:23
DX: S91.012A Laceration without foreign body, left ankle, initial encounter (principal); W23.0XXA Caught, crushed, jammed, or pinched between moving objects, initial encounter; I12.9 Hypertensive chronic kidney disease with stage 1 through stage 4 chronic kidney disease, or unspecified chronic kidney disease; N18.30 Chronic kidney disease, stage 3 unspecified; Z23 Encounter for immunization; Z79.01 Long term (current) use of anticoagulants; Z86.718 Personal history of other venous thrombosis and embolism; Z88.2 Allergy status to sulfonamides; Z88.6 Allergy status to analgesic agent
CPT/HCPCS: 73610; 90714; J1100; J0690; 90471; 96372; 99284

== ENCOUNTER 2021-09-28 21:24 | Emergency (ER) | payer BC ==
--- OUTSIDE RECORDS SUMMARY | 2021-09-28 21:29 | XMS REPORT | Continuity of Care Document ---
:1985 Author Organization [facility] t Address [address] [place] [address] Care Team Providers Name Role Phone Chantelle Burns MD Primary Care Physician ANA LUISA Attending Clinician Unavailable SHALINI Attending Clinician Unavailable Leo Attending Clinician Unavailable Mihai Attending Clinician Unavailable Landry FRAUSTO Attending Clinician Unavailable CATHY Attending Clinician Unavailable Asked, Pcp Attending Clinician Unavailable Nydia Zhang Attending Clinician Judy Braxton MD Attending Clinician Horacio ALEXIS Attending Clinician Yaritza ZHENG Attending Clinician Unavailable CARIN OROSCO Attending Clinician Unavailable Jessica Hussein MD Attending Clinician [phone] Jose Cruz BUI, Erik Attending Clinician Alexander BUI Attending Clinician Kena ZHENG Attending Clinician Unavailable Maryam ZHENG Attending Clinician Unavailable KENDRA Attending Clinician Unavailable ANA LUISA Attending Clinician Unavailable JOSE CRUZ Admitting Clinician Unavailable Payers Payer Name Policy Type Policy Number Effective Date Expiration Date S nazia BCBSTX PPO [id number] 2019 00:00:00 Problems Condition Condition Condition Status Onset Resolution Last Treating Co mments Source Name Details Category Date Date Treatment Clinician Date IgA IgA Disease Active [facility] neph[facility]ath nephropath 12-28 [facility]: Hospita 00 l Morbid Morbid Disease Active NPI:152 obesity obesity 11-25 [id number] due to due to 00:00: excess excess 00 calories calories ESRD ESRD Disease Active [facility] needing needing 11-16 st dialysis dialysis 00:00: Hospit a 00 l Shortness Shortness Disease Active Overview: [facility] of breath of breath 11-16 Formattin s t 00:00: g of this Hospita 00 note l might be different from the original. Added automatic ally from request for surgery [id number] Acute Acute Disease Active NPI:152 worsening worsening 11-04 205 of stage 4 of stage 4 00:00: chronic chronic 00 kidney kidney disease disease Chronic Chronic Disease Active NPI:152 kidney kidney 11-04 [id number] disease disease 00:00: 00 COVID-19 COVID-19 Disease Active NPI:1 52 virus virus 11-04 [id number] infection infection 00:00: 00 Gout Gout Disease Active NPI:152 11-04 [id number] 00:00: 00 Hyperlipid Hyperlipid Disease Active N PI:152 emia emia 11-04 [id number] 00:00: 00 Hypertensi Hypertensi Disease Active N PI:152 on on 11-04 [id number] 00:00: 00 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 11-04 [id number] deficiency deficiency 00:00: 00 Muscle Muscle Disease Active NPI:152 pain pain 11-04 [id number] 00:00: 00 Malabsorpt Malabsorpt Disease Active N PI:152 ion due to ion due to 08-19 intoleranc intoleranc 00:00: e, not e, not 00 elsewhere elsewhere classified classified Malnutriti Malnutriti Disease Active N PI:152 on on 08-19 [id number] 00:00: 00 Vitamin D Vitamin D Disease Active NPI :152 deficiency deficiency 08-19 00:00: 00 Dehydratio Dehydratio Disease Active 2015-05 N PI:152 n n 06-19 [id number] 00:00: 00 Rhabdomyol Rhabdomyol Disease Active 2015-05 N PI:152 ysis ysis 06-19 [id number] 00:00: 00 Malabsorpt Malabsorpt Problem Active N PI:152 ion due to ion due to 85 04697 intoleranc intoleranc e, not e, not elsewhere elsewhere classified classified Malnutriti Malnutriti Problem Active N PI:152 on on [id number] Vitamin D Vitamin D Problem Active NPI :152 deficiency deficiency 85 05905 Allergies, Adverse Reactions, Alerts Allergy Allergy Status Severity Reaction(s) Onset Inactive Treating Comm ents Source Name Type Date Date Clinician Losartan Propensi Active Swelling In hands [facility] ty to 12-[address] adverse 00:00: Hospita reaction 00 l s to drug Statins- Propensi Active Other (See Breaks Me thodi Hmg-Coa ty to Comments) 12-[address] Reductas adverse 00:00: muscles Hospit a e reaction 00 l Inhibito s to rs drug Losartan Allergy Active NPI:152 to 7-20 [id number] substanc 00:00: e 00 Statins Allergy Active NPI:152 to 7-20 [id number] substanc 00:00: e 00 Nsaids Allergy Active NPI:152 to 6-08 [id number] substanc 00:00: e 00 Sulfa Allergy Active NPI:152 Antibiot to 6-08 4401313 ics substanc 00:00: e 00 Nsaids Propensi Active Other (See Kidney Meth collins (Non-Wale ty to Comments) 01-[address] roidal adverse 00:00: Contraind Hospit a Anti-Inf reaction 00 ication l lammator s to y Drug) drug Sulfa Propensi Active Other (See Kidney Meth collins (Sulfona ty to Comments) 01-[address] mide adverse 00:00: contraind Hospit a Antibiot reaction 00 ication l ics) s to drug NSAIDs Allergy Active NPI:152 to drug [id number] (finding ) Sulfa Allergy Active NPI:152 Drugs to drug 2713333 (finding ) Social History Social Habit Start Date Stop Date Quantity Comments Source Exposure to Not sure NPI:[id number] SARS-CoV-2 (event) Alcohol intake 2021-06-18 2021-06-18 Ex-drinker NPI:[id number] 00:00:00 00:00:00 (finding) Tobacco use and 2020-01-15 2020-01-15 Smokeless tobacco [facility] exposure 00:00:00 00:00:00 non-user Hospital Sex Assigned At [birth year] [facility] 00:00:00 00:00:00 Hospital Smoking Status Start Date Stop Date Source Unknown if ever smoked NPI:[id number] Never smoked tobacco NPI:[id number] Medications Ordered Filled Start Stop Current Ordering Indication Dosage Frequency Signature Comments Components Source Medication Medication Date Date Medication? Clinician (SIG) Name Name thiamine 2020-05 No [id number] 100mg Q.90300456 Take 1 NPI:152 mononitrate 1-12 11-13 [id number] tablet [id number] (Vitamin 00:00: 05:59 3D (100 mg B-1) 100 MG 00 :00 total) by tablet mouth 3 (three) times a day. ergocalcife 2020-0 Yes [id number] TAKE 1 NPI:152 rol 9-09 CAPSULE BY [id number] (Vitamin 00:00: MOUTH ONE D2) 1.25 MG 00 TIME PER (78025 UT) WEEK capsule ergocalcife 2020-0 Yes [id number] TAKE 1 NPI:152 rol 9-09 CAPSULE BY [id number] (Vitamin 00:00: MOUTH ONE D2) 1.25 MG 00 TIME PER (61076 UT) WEEK capsule ergocalcife 2020-0 Yes [id number] TAKE 1 NPI:152 rol 9-09 CAPSULE BY [id number] (Vitamin 00:00: MOUTH ONE D2) 1.25 MG 00 TIME PER (57188 UT) WEEK capsule ergocalcife 2020-0 Yes [id number] TAKE 1 NPI:152 rol 9-09 CAPSULE BY [id number] (Vitamin 00:00: MOUTH ONE D2) 1.25 MG 00 TIME PER (36004 UT) WEEK capsule sevelamer Yes .8g Q.60270984 Take 0.8 g [facility] carbonate 8-09 [id number] mouth [address] (RENVELA) 11:25: 3D (three) Hospi ta 0.8 gram 41 times a l powder in day. packet allopurinoL 2020-0 Yes 100mg Take 100 M ethodi (ZYLOPRIM) 8-[address] 100 MG 11:25: mouth Hospita tablet 41 Every l Monday, Monday, and Monday. docusate 2020-0 Yes 100mg Q.5D Take 100 Meth collins sodium 8-[address] (COLACE) 11:25: mouth 2 Hospit a 100 MG 41 (two) l capsule times a day. levothyroxi 2020-0 Yes 112ug QD Take 112 M ethodi ne 8-[address] (SYNTHROID) 11:23: mouth Hospi ta 112 mcg 29 every l tablet morning. nebivoloL 2020-0 Yes 20mg QD Take 20 mg Me thodi (BYSTOLIC) 8-[address] 20 mg 11:23: every Hospita tablet 29 evening. l febuxostat 2020-0 Yes 80mg QD Take 80 mg M ethodi (ULORIC) 80 8-[address] mg tablet 11:23: daily. Hospit a 29 l doxazosin 2020-0 Yes 4mg Q.5D Take 4 mg Met hodi (CARDURA) 4 8-[address] MG tablet 11:23: (two) Hospita 29 times a l day. apixaban 2020-0 Yes 2.5mg Q.5D Take 2.5 Meth collins (ELIQUIS) 8-[address] 2.5 mg 11:23: mouth 2 Hospita tablet 29 (two) l times a day. icosapent 2020-0 Yes 1g Q.5D Take 1 g Meth collins ethyL 8-[address] (Vascepa) 1 11:23: (two) Hospi ta gram 29 times a l capsule day. evolocumab 2020-0 Yes 140mg Q14D Inject 140 [facility] (REPATHA 8-[address] SYRINGE 11:23: the skin Hospit a SUBQ) 29 every 14 l (fourteen) days. Last dose 11/05/20Nex t dose due 11/19/20 coenzyme 2020-0 Yes 200mg QD Take 200 Meth collins Q10 200 mg 8-[address] capsule 11:23: mouth Hospita 29 daily. l ezetimibe 2020-0 Yes 10mg QD Take 10 mg Me thodi (ZETIA) 10 8-[address] mg tablet 11:23: daily. Hospit a 29 l sodium 2020-0 Yes 650mg Q.5D Take 650 Method i bicarbonate 8-[address] 650 mg 11:23: mouth 2 Hospita tablet 29 (two) l times a day. patiromer 2020-0 Yes 8.4g QD Take 8.4 g Me [facility] calcium 8-[address] sorbitex 11:23: daily. On Hosp mary (Veltassa) 29 hold l 8.4 gram powder in packet packet adalimumab 2020-0 Yes 40mg Q14D Inject 40 Me thodi (Humira) 40 8-[address] mg/0.8 mL 11:23: the skin Hosp mary injection 29 every 14 l (fourteen) days. Last dose 11/05/20Nex t dose 11/19/20 apixaban 2020-0 Yes 2.5mg Q.5D Take 2.5 NPI: 152 (Eliquis) 7-20 mg by [id number] 2.5 MG 14:16: mouth 2 tablet 16 (two) times a day. levothyroxi 2021-0 Yes 112ug QD Take 112 N PI:152 ne 7-20 mcg by [id number] (Tirosint) 14:16: mouth 1 112 MCG 16 (one) time capsule each day. apixaban 1-0 Yes 2.5mg Q.5D Take 2.5 NPI: 152 (Eliquis) 7-20 mg by [id number] 2.5 MG 14:16: mouth 2 tablet 16 (two) times a day. levothyroxi 2021-0 Yes 112ug QD Take 112 N PI:152 ne 7-20 mcg by [id number] (Tirosint) 14:16: mouth 1 112 MCG 16 (one) time capsule each day. apixaban 2021-0 Yes 2.5mg Q.5D Take 2.5 NPI: 152 (Eliquis) 7-20 mg by [id number] 2.5 MG 14:16: mouth 2 tablet 16 (two) times a day. levothyroxi 2021-0 Yes 112ug QD Take 112 N PI:152 ne 7-20 mcg by [id number] (Tirosint) 14:16: mouth 1 112 MCG 16 (one) time capsule each day. sodium 2021-0 2021- No 650mg Q.5D Take 650 NPI:1 52 bicarbonate 7-20 07-20 mg by [id number] 5 650 MG 14:15: 00:00 mouth 2 tablet 59 :00 (two) times a day. apixaban 2021-0 Yes 2.5mg Q.5D Take 2.5 NPI: 152 (Eliquis) 7-20 mg by [id number] 2.5 MG 09:16: mouth 2 tablet 16 (two) times a day. levothyroxi 2021-0 Yes 112ug QD Take 112 N PI:152 ne 7-20 mcg by [id number] (Tirosint) 09:16: mouth 1 112 MCG 16 (one) time capsule each day. apixaban 2021-0 Yes 2.5mg Q.5D Take 2.5 NPI: 152 (Eliquis) 7-20 mg by [id number] 2.5 MG 09:16: mouth 2 tablet 16 (two) times a day. levothyroxi 2021-0 Yes 112ug QD Take 112 N PI:152 ne 7-20 mcg by [id number] (Tirosint) 09:16: mouth 1 112 MCG 16 (one) time capsule each day. pantoprazol 2021-0 Yes 40mg QD Take 40 mg NPI:152 e 7-14 by mouth 1 [id number] (ProtoNix) 00:00: (one) time 40 MG EC 00 each day. tablet pantoprazol 2021-0 Yes 40mg QD Take 40 mg NPI:152 e 7-14 by mouth 1 [id number] (ProtoNix) 00:00: (one) time 40 MG EC 00 each day. tablet pantoprazol 2021-0 Yes 40mg QD Take 40 mg NPI:152 e 7-14 by mouth 1 [id number] (ProtoNix) 00:00: (one) time 40 MG EC 00 each day. tablet pantoprazol 2021-0 Yes 40mg QD Take 40 mg NPI:152 e 7-14 by mouth 1 [id number] (ProtoNix) 00:00: (one) time 40 MG EC 00 each day. tablet pantoprazol 2021-0 Yes 40mg QD Take 40 mg NPI:152 e 7-14 by mouth 1 [id number] (ProtoNix) 00:00: (one) time 40 MG EC 00 each day. tablet levothyroxi Yes 112ug QD Take 112 N PI:152 ne 7-07 mcg by [id number] (Tirosint) 14:23: mouth 1 112 MCG 31 (one) time capsule each day. sodium Yes 650mg Q.5D Take 650 NPI:15 2 bicarbonate 7-07 mg by [id number] 650 MG 14:23: mouth 2 tablet 31 (two) times a day. co-enzyme 2020- No 30mg Q.25D Take 30 mg NPI:152 Q-10 30 MG 7- 07-07 by mouth 4 [id number] [id number] capsule 14:23: 00:00 (four) 31 :00 times a day. sodium 2020- No 10g Take 10 g NPI:1 52 zirconium 7- 07-07 by mouth 3 850 9205 cyclosilica 14:23: 00:00 (three) te 31 :00 times a (Lokelma) week. 10 g packet levothyroxi 2020- No 100ug Q.25D Take 100 NPI:152 ne 7-07 07-07 mcg by [id number] (Synthroid, 14:16: 00:00 mouth 4 Levoxyl) 15 :00 (four) 100 MCG times a tablet day. apixaban Yes 2.5mg Q.5D Take 2.5 NPI: 152 (Eliquis) 7-07 mg by [id number] 2.5 MG 14:09: mouth 2 tablet 59 (two) times a day. allopurinol 2021- No [id number] 100mg QD Take 1 NPI:152 (Zyloprim) 7-07 07-08 tablet [id number] 5 100 MG 00:00: 04:59 (100 mg tablet 00 :00 total) by mouth 1 (one) time each day. allopurinol 2021- No [id number] 100mg QD Take 1 NPI:152 (Zyloprim) 7-07 07-08 tablet [id number] 5 100 MG 00:00: 04:59 (100 mg tablet 00 :00 total) by mouth 1 (one) time each day. allopurinol 2021- No [id number] 100mg QD Take 1 NPI:152 (Zyloprim) 11-25 tablet [id number] 5 100 MG 00:00: 04:59 (100 mg tablet 00 :00 total) by mouth 1 (one) time each day. allopurinol 2021- No [id number] 100mg QD Take 1 NPI:152 (Zyloprim) 11-25 tablet [id number] 5 100 MG 00:00: 04:59 (100 mg tablet 00 :00 total) by mouth 1 (one) time each day. allopurinol 2021- No [id number] 100mg QD Take 1 NPI:152 (Zyloprim) 11-25 tablet [id number] 5 100 MG 00:00: 04:59 (100 mg tablet 00 :00 total) by mouth 1 (one) time each day. allopurinol 2021- No [id number] 100mg QD Take 1 NPI:152 (Zyloprim) 11-25 tablet [id number] 5 100 MG 00:00: 04:59 (100 mg tablet 00 :00 total) by mouth 1 (one) time each day. folic acid No 1mg QD Take 1 Meth collins (FOLVITE) 1 11-20 tablet (1 st MG tablet 00:00: 04:59 mg total) Ho spita 00 :00 by mouth l daily for 30 days. calcitrioL No .25ug Take 0.25 [facility] (ROCALTROL) 11-[address] 0.25 MCG 21:11: 00:00 mouth Hospita capsule 00 :00 Every l Monday, Monday, and Monday. hydrALAZINE 2020- No 50mg Q.5D Take 50 mg [facility] (APRESOLINE 11-19 by mouth 2 s t ) 50 MG 21:11: 00:00 (two) Hospita tablet 00 :00 times a l day. calcium 2020- No 1{tbl} Q.27340486 Chew 1 [facility] carbonate 11-[id number] (TUMS) 200 21:11: 00:00 3D (three) Hos madelyn mg calcium 00 :00 times a l (500 mg) day with chewable meals. tablet ergocalcife 2020-0 202- No [id number] Q7D Take Met hodi rol 11-[address] 50,000 [address] (VITAMIN 21:11: 00:00 Units by Hosp mary D2) 50,000 00 :00 mouth once l unit a week. capsule sevelamer 202-0 Yes 1{tbl} QD Take 1 NPI: 152 carbonate 7-01 [place] 79595 05 (Renvela) 00:00: mouth 1 800 MG 00 (one) time tablet each day. hydrALAZINE 2020-0 Yes 1{tbl} Q.5D Take 1 ELECTROMYOGRAPHIC TECHNICIAN I:152 (Apresoline 7-01 tablet by 850 9205 ) 10 MG 00:00: mouth 2 tablet 00 (two) times a day. folic acid 2020-0 Yes 1{tbl} QD Take 1 NPI :152 (Folvite) 1 7-01 tablet by 850 9205 MG tablet 00:00: mouth 1 00 (one) time each day. sevelamer 202-0 Yes 1{tbl} QD Take 1 NPI: 152 carbonate 7-01 [place] [id number] 05 (Renvela) 00:00: mouth 1 800 MG 00 (one) time tablet each day. hydrALAZINE 202-0 Yes 1{tbl} Q.5D Take 1 ELECTROMYOGRAPHIC TECHNICIAN I:152 (Apresoline 7-01 tablet by 850 9205 ) 10 MG 00:00: mouth 2 tablet 00 (two) times a day. folic acid 202-0 Yes 1{tbl} QD Take 1 NPI :152 (Folvite) 1 7-01 tablet by 850 9205 MG tablet 00:00: mouth 1 00 (one) time each day. sevelamer 2021-0 Yes 1{tbl} QD Take 1 NPI: 152 carbonate 7-01 [place] [id number] 05 (Renvela) 00:00: mouth 1 800 MG 00 (one) time tablet each day. hydrALAZINE 2021-0 Yes 1{tbl} Q.5D Take 1 ELECTROMYOGRAPHIC TECHNICIAN I:152 (Apresoline 7-01 tablet by 850 9205 ) 10 MG 00:00: mouth 2 tablet 00 (two) times a day. folic acid 2021-0 Yes 1{tbl} QD Take 1 NPI :152 (Folvite) 1 7-01 tablet by 850 9205 MG tablet 00:00: mouth 1 00 (one) time each day. sevelamer 2021-0 Yes 1{tbl} QD Take 1 NPI: 152 carbonate 7-01 [place] 06927 05 (Renvela) 00:00: mouth 1 800 MG 00 (one) time tablet each day. hydrALAZINE 2021-0 Yes 1{tbl} Q.5D Take 1 ELECTROMYOGRAPHIC TECHNICIAN I:152 (Apresoline 7-01 tablet by 850 9205 ) 10 MG 00:00: mouth 2 tablet 00 (two) times a day. folic acid 2021-0 Yes 1{tbl} QD Take 1 NPI :152 (Folvite) 1 7-01 tablet by 850 9205 MG tablet 00:00: mouth 1 00 (one) time each day. sevelamer 2021-0 Yes 1{tbl} QD Take 1 NPI: 152 carbonate 7-01 [place] [id number] 05 (Renvela) 00:00: mouth 1 800 MG 00 (one) time tablet each day. hydrALAZINE 2021-0 Yes 1{tbl} Q.5D Take 1 ELECTROMYOGRAPHIC TECHNICIAN I:152 (Apresoline 7-01 tablet by 850 9205 ) 10 MG 00:00: mouth 2 tablet 00 (two) times a day. folic acid 2021-0 Yes 1{tbl} QD Take 1 NPI :152 (Folvite) 1 7-01 tablet by 850 9205 MG tablet 00:00: mouth 1 00 (one) time each day. sevelamer 2021-0 Yes 1{tbl} QD Take 1 NPI: 152 carbonate 7-01 [place] 93950 05 (Renvela) 00:00: mouth 1 800 MG 00 (one) time tablet each day. hydrALAZINE 2021-0 Yes 1{tbl} Q.5D Take 1 ELECTROMYOGRAPHIC TECHNICIAN I:152 (Apresoline 7-01 tablet by 850 9205 ) 10 MG 00:00: mouth 2 tablet 00 (two) times a day. folic acid 2021-0 Yes 1{tbl} QD Take 1 NPI :152 (Folvite) 1 7-01 tablet by 850 9205 MG tablet 00:00: mouth 1 00 (one) time each day. hydrALAZINE 2020- No 10mg Q.5D Take 1 Met hodi (APRESOLINE 11-19 tablet (10 s t ) 10 MG 00:00: 04:59 mg total) Hosp mary tablet 00 :00 by mouth l every 12 (twelve) hours for 30 days. sevelamer 2020- No 1600mg Q.[id number] Take 2 [facility] (RENVELA) 11-[id number] 800 mg 00:00: 04:59 3D (1,600 mg Hospi ta tablet 00 :00 total) by l mouth 3 (three) times a day with meals for 30 days. Veltassa Yes 1{packe QD Take 1 NPI: 152 8.4 g pack 6-21 t} packet by 8509 00:00: mouth 1 00 (one) time each day. Veltassa Yes 1{packe QD Take 1 NPI: 152 8.4 g pack 6-21 t} packet by 8509 00:00: mouth 1 00 (one) time each day. Veltassa Yes 1{packe QD Take 1 NPI: 152 8.4 g pack 6-21 t} packet by 8509 00:00: mouth 1 00 (one) time each day. Veltassa Yes 1{packe QD Take 1 NPI: 152 8.4 g pack 6-21 t} packet by 8509 00:00: mouth 1 00 (one) time each day. Veltassa Yes 1{packe QD Take 1 NPI: 152 8.4 g pack 6-21 t} packet by 8509 00:00: mouth 1 00 (one) time each day. Veltassa Yes 1{packe QD Take 1 NPI: 152 8.4 g pack 6-21 t} packet by 8509 00:00: mouth 1 00 (one) time each day. levothyroxi Yes 100ug Q.25D Take 100 NPI:152 ne 6-16 mcg by [id number] (Synthroid, 14:10: mouth 4 Levoxyl) 22 (four) 100 MCG times a tablet day. apixaban 2021-0 Yes 2.5mg Q.5D Take 2.5 NPI: 152 (Eliquis) 6-16 mg by [id number] 2.5 MG 14:10: mouth 2 tablet 22 (two) times a day. co-enzyme 2021-0 Yes 30mg Q.25D Take 30 mg N PI:152 Q-10 30 MG 6-16 by mouth 4 850 9205 capsule 14:10: (four) 22 times a day. sodium 2021-0 Yes 10g Take 10 g NPI:15 2 zirconium 6-16 by mouth 3 8509 205 cyclosilica 14:10: (three) te 22 times a ([facility]) week. 10 g packet levothyroxi 2020-0 Yes 100ug Q.25D Take 100 NPI:152 ne 6-16 mcg by [id number] (Synthroid, 14:10: mouth 4 Levoxyl) 22 (four) 100 MCG times a tablet day. apixaban 2021-0 Yes 2.5mg Q.5D Take 2.5 NPI: 152 (Eliquis) 6-16 mg by 9953075 2.5 MG 14:10: mouth 2 tablet 22 (two) times a day. co-enzyme 2021-0 Yes 30mg Q.25D Take 30 mg N PI:152 Q-10 30 MG 6-16 by mouth 4 850 9205 capsule 14:10: (four) 22 times a day. sodium 2021-0 Yes 10g Take 10 g NPI:15 2 zirconium 6-16 by mouth 3 8509 205 cyclosilica 14:10: (three) te 22 times a (kelfl) week. 10 g packet Humira 40 2020-0 Yes 1{appli Inject 1 N PI:152 MG/0.4ML 6-15 cation} applicatio 85 [id number] Prefilled 00:00: n into the Syringe Kit 00 shoulder, thigh, or buttocks. Humira 40 2021-0 2021- No 1{appli Inject 1 NPI:152 MG/0.4ML 6-15 07-20 cation} applicatio 8 [id number] Prefilled 00:00: 00:00 n into the Syringe Kit 00 :00 shoulder, thigh, or buttocks. hydrALAZINE 0 Yes 50mg Q.5D Take 50 mg NPI:152 (Apresoline 6-06 by mouth 2 69 79559 ) 50 MG 00:00: (two) tablet 00 times a day. hydrALAZINE 0 Yes 50mg Q.5D Take 50 mg NPI:152 (Apresoline 6-06 by mouth 2 61 52793 ) 50 MG 00:00: (two) tablet 00 times a day. hydrALAZINE 2020- No 50mg Q.5D Take 50 mg NPI:152 (Apresoline 6-06 07-07 by mouth 2 8 414388 ) 50 MG 00:00: 00:00 (two) tablet 00 :00 times a day. Vascepa 1 g Yes 1{capsu QD Take 1 N PI:152 capsule 5-30 le} capsule by 607504 5 00:00: mouth 1 00 (one) time each day. Vascepa 1 g Yes 1{capsu QD Take 1 N PI:152 capsule 5-30 le} capsule by 721210 5 00:00: mouth 1 00 (one) time each day. Vascepa 1 g Yes 1{capsu QD Take 1 N PI:152 capsule 5-30 le} capsule by 290884 5 00:00: mouth 1 00 (one) time each day. Vascepa 1 g Yes 1{capsu QD Take 1 N PI:152 capsule 5-30 le} capsule by 098699 5 00:00: mouth 1 00 (one) time each day. Vascepa 1 g Yes 1{capsu QD Take 1 N PI:152 capsule 5-30 le} capsule by 425976 5 00:00: mouth 1 00 (one) time each day. Vascepa 1 g Yes 1{capsu QD Take 1 N PI:152 capsule 5-30 le} capsule by 096782 5 00:00: mouth 1 00 (one) time each day. Vascepa 1 g Yes 1{capsu QD Take 1 N PI:152 capsule 5-30 le} capsule by 045171 5 00:00: mouth 1 00 (one) time each day. Vascepa 1 g Yes 1{capsu QD Take 1 N PI:152 capsule 5-30 le} capsule by 585096 5 00:00: mouth 1 00 (one) time each day. Repatha Yes 1mL 1 mL by NPI:152 SureClick 5-28 Epidural 350217 5 140 MG/ML 00:00: route 1 solution 00 (one) time auto-inject per week. or Repatha Yes 1mL 1 mL by NPI:152 SureClick 5-28 Epidural 773749 5 140 MG/ML 00:00: route 1 solution 00 (one) time auto-inject per week. or Repatha Yes 1mL 1 mL by NPI:152 SureClick 5-28 Epidural 875562 5 140 MG/ML 00:00: route 1 solution 00 (one) time auto-inject per week. or Repatha Yes 1mL 1 mL by NPI:152 SureClick 5-28 Epidural 111377 5 140 MG/ML 00:00: route 1 solution 00 (one) time auto-inject per week. or Repatha Yes 1mL 1 mL by NPI:152 SureClick 5-28 Epidural 945717 5 140 MG/ML 00:00: route 1 solution 00 (one) time auto-inject per week. or Repatha Yes 1mL 1 mL by NPI:152 SureClick 5-28 Epidural 425580 5 140 MG/ML 00:00: route 1 solution 00 (one) time auto-inject per week. or Repatha Yes 1mL 1 mL by NPI:152 SureClick 5-28 Epidural 309878 5 140 MG/ML 00:00: route 1 solution 00 (one) time auto-inject per week. or Repatha 0 Yes 1mL 1 mL by NPI:152 SureClick 5-28 Epidural 925544 5 140 MG/ML 00:00: route 1 solution 00 (one) time auto-inject per week. or doxazosin Yes 1{tbl} QD Take 1 NPI: 152 (Cardura) 4 5-17 tablet by 850 9205 MG tablet 00:00: mouth 1 00 (one) time each day. doxazosin 2021-0 Yes 1{tbl} QD Take 1 NPI: 152 (Cardura) 4 5-17 tablet by 850 9205 MG tablet 00:00: mouth 1 00 (one) time each day. doxazosin 2020- No 1{tbl} QD Take 1 NPI :152 (Cardura) 4 5-17 07-07 tablet by 85 58680 MG tablet 00:00: 00:00 mouth 1 00 :00 (one) time each day. Diethylprop 2020- No 1{tbl} Q.5D Take 1 N PI:152 ion HCl 25 5-17 07-07 tablet by 850 9205 MG tablet 00:00: 00:00 mouth 2 00 :00 (two) times a day. febuxostat 0 Yes 1{tbl} QD Take 1 NPI :152 (Uloric) 80 5-13 tablet by 850 9205 MG tablet 00:00: mouth 1 00 (one) time each day. febuxostat 0 Yes 1{tbl} QD Take 1 NPI :152 (Uloric) 80 5-13 tablet by 850 9205 MG tablet 00:00: mouth 1 00 (one) time each day. febuxostat 0 Yes 1{tbl} QD Take 1 NPI :152 (Uloric) 80 5-13 tablet by 850 9205 MG tablet 00:00: mouth 1 00 (one) time each day. febuxostat 2020-0 Yes 1{tbl} QD Take 1 NPI :152 (Uloric) 80 5-13 tablet by 850 9205 MG tablet 00:00: mouth 1 00 (one) time each day. febuxostat 2020-0 Yes 1{tbl} QD Take 1 NPI :152 (Uloric) 80 5-13 tablet by 850 9205 MG tablet 00:00: mouth 1 00 (one) time each day. febuxostat 2020-0 Yes 1{tbl} QD Take 1 NPI :152 (Uloric) 80 5-13 tablet by 850 9205 MG tablet 00:00: mouth 1 00 (one) time each day. febuxostat 2020-0 Yes 1{tbl} QD Take 1 NPI :152 (Uloric) 80 5-13 tablet by 850 9205 MG tablet 00:00: mouth 1 00 (one) time each day. febuxostat 2020-0 Yes 1{tbl} QD Take 1 NPI :152 (Uloric) 80 5-13 tablet by 850 9205 MG tablet 00:00: mouth 1 00 (one) time each day. Jigarolic 20 2020-0 Yes 20mg QD Take 20 mg NPI:152 MG tablet 4-14 by mouth 1 8509 205 00:00: (one) time 00 each day. Jigarolic 20 2020-0 Yes 20mg QD Take 20 mg NPI:152 MG tablet 4-14 by mouth 1 8509 205 00:00: (one) time 00 each day. Jigarolic 20 2020-0 Yes 20mg QD Take 20 mg NPI:152 MG tablet 4-14 by mouth 1 8509 00:00: (one) time 00 each day. Jigarolic 20 2020-0 Yes 20mg QD Take 20 mg NPI:152 MG tablet 4-14 by mouth 1 8509 00:00: (one) time 00 each day. Jigarolic 20 2020-0 Yes 20mg QD Take 20 mg NPI:152 MG tablet 4-14 by mouth 1 8509 205 00:00: (one) time 00 each day. Hector 20 2020-0 Yes 20mg QD Take 20 mg NPI:152 MG tablet 4-14 by mouth 1 8509 00:00: (one) time 00 each day. Jigarolic 20 2020-0 Yes 20mg QD Take 20 mg NPI:152 MG tablet 4-14 by mouth 1 8509 00:00: (one) time 00 each day. Jigarolic 20 2020-0 Yes 20mg QD Take 20 mg NPI:152 MG tablet 4-14 by mouth 1 8509 00:00: (one) time 00 each day. sodium 2020-0 Yes 650mg Q.5D Take 650 NPI:15 2 bicarbonate 4-13 mg by [id number] MG 00:00: mouth 2 tablet 00 (two) times a day. ezetimibe 2020-0 Yes 10mg QD Take 10 mg ELECTROMYOGRAPH[employer] TECHNICIAN I:152 (Zetia) 10 4-13 by mouth 1 850 9205 MG tablet 00:00: (one) time 00 each day. ezetimibe 2020-0 Yes 10mg QD Take 10 mg ELECTROMYOGRAPHIC TECHNICIAN I:152 (Zetia) 10 4-13 by mouth 1 850 9205 MG tablet 00:00: (one) time 00 each day. ezetimibe 2021-0 Yes 10mg QD Take 10 mg ELECTROMYOGRAPHIC TECHNICIAN I:152 (Zetia) 10 4-13 by mouth 1 850 9205 MG tablet 00:00: (one) time 00 each day. ezetimibe 2021-0 Yes 10mg QD Take 10 mg ELECTROMYOGRAPHIC TECHNICIAN I:152 (Zetia) 10 4-13 by mouth 1 850 9205 MG tablet 00:00: (one) time 00 each day. ezetimibe 2021-0 Yes 10mg QD Take 10 mg ELECTROMYOGRAPHIC TECHNICIAN I:152 (Zetia) 10 4-13 by mouth 1 850 9205 MG tablet 00:00: (one) time 00 each day. ezetimibe 2021-0 Yes 10mg QD Take 10 mg ELECTROMYOGRAPHIC TECHNICIAN I:152 (Zetia) 10 4-13 by mouth 1 850 9205 MG tablet 00:00: (one) time 00 each day. ezetimibe 2021-0 Yes 10mg QD Take 10 mg ELECTROMYOGRAPHIC TECHNICIAN I:152 (Zetia) 10 4-13 by mouth 1 850 9205 MG tablet 00:00: (one) time 00 each day. sodium 2021-0 Yes 650mg Q.5D Take 650 NPI:15 2 bicarbonate 4-13 mg by [id number] 650 MG 00:00: mouth 2 tablet 00 (two) times a day. ezetimibe 2021-0 Yes 10mg QD Take 10 mg ELECTROMYOGRAPHIC TECHNICIAN I:152 (Zetia) 10 4-13 by mouth 1 850 9205 MG tablet 00:00: (one) time 00 each day. sodium 2021-0 2021- No 650mg Q.5D Take 650 NPI:1 52 bicarbonate 4-13 07-07 mg by [id number] 650 MG 00:00: 00:00 mouth 2 tablet 00 :00 (two) times a day. 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 MG (81030 MG (94355 00 UT) Oral UT) Oral Capsule Capsule ergocalcife 202-0 Yes [id number] Take NPI: 152 rol 4-12 50,106 [id number] (Vitamin 00:00: Units by D2) 1.25 MG 00 mouth 1 (73036 UT) (one) time capsule per week. ergocalcife 2020-0 Yes [id number] Take NPI: 152 rol 4-12 50,627 [id number] (Vitamin 00:00: Units by D2) 1.25 MG 00 mouth 1 (09402 UT) (one) time capsule per week. ergocalcife 0 202- No [id number] Take NPI :152 rol 4-12 07-07 50,258 [id number] (Vitamin 00:00: 00:00 Units by D2) 1.25 MG 00 :00 mouth 1 (42116 UT) (one) time capsule per week. calcitriol Yes 1{capsu Take 1 ELECTROMYOGRAPHIC TECHNICIAN I:152 (Rocaltrol) 3-30 le} capsule by 85 [id number] 0.25 MCG 00:00: mouth 3 capsule 00 (three) times a week. calcitriol 0 Yes 1{capsu Take 1 ELECTROMYOGRAPHIC TECHNICIAN I:152 (Rocaltrol) 3-30 le} capsule by 85 [id number] 0.25 MCG 00:00: mouth 3 capsule 00 (three) times a week. calcitriol 2020- No 1{capsu Take 1 N PI:152 (Rocaltrol) 3-30 07-07 le} capsule by 8 [id number] 0.25 MCG 00:00: 00:00 mouth 3 capsule 00 :00 (three) times a week. cloNIDine Yes .1mg Q.5D Take 0.1 NPI: 152 (Catapres) 3-28 mg by [id number] 0.1 MG 00:00: mouth 2 tablet 00 (two) times a day. cloNIDine 2020-0 Yes .1mg Q.5D Take 0.1 NPI: 152 (Catapres) 3-28 mg by [id number] 0.1 MG 00:00: mouth 2 tablet 00 (two) times a day. cloNIDine 0 2020- No .1mg Q.5D Take 0.1 NPI :152 (Catapres) 3-28 07-07 mg by [id number] 0.1 MG 00:00: 00:00 mouth 2 tablet 00 :00 (two) times a day. No known No NPI:152 medications [id number] Vital Signs Vital Name Observation Time Observation Value Comments Source Systolic blood 2021-06-18 146 mm[Hg] NPI:[id number] 5 pressure 19:57:00 Diastolic blood 2021-06-18 90 mm[Hg] NPI:[id number] 05 pressure 19:57:00 Heart rate 2021-06-18 62 /min 19:57:00 Body temperature 2021-06-18 35.89 Sia NPI:[id number] 205 19:57:00 Body height 2021-06-18 175.3 cm 19:57:00 Body weight 2021-06-18 90.719 kg 19:57:00 BMI 2021-06-18 29.53 kg/m2 19:57:00 Systolic blood 2021-03-19 158 mm[Hg] NPI:[id number] 5 pressure 17:24:00 Diastolic blood 2021-03-19 103 mm[Hg] NPI:[id number] 05 pressure 17:24:00 Heart rate 2021-03-19 82 /min 17:24:00 Body temperature 2021-03-19 36.44 Sia NPI:[id number] 205 17:24:00 Body height 2021-03-19 175.3 cm 17:24:00 Body weight 2021-03-19 104.282 kg 17:24:00 BMI 2021-03-19 33.95 kg/m2 17:24:00 Systolic blood 2020-12-08 129 mm[Hg] NPI:[id number] 5 pressure 14:08:00 Diastolic blood 2020-12-08 81 mm[Hg] NPI:[id number] 05 pressure 14:08:00 Heart rate 2020-12-08 79 /min 14:08:00 Body temperature 2020-12-08 35.72 Sia NPI:[id number] 205 14:08:00 Body height 2020-12-08 175.3 cm 14:08:00 Body weight 2020-12-08 117.935 kg 14:08:00 BMI 2020-12-08 38.40 kg/m2 14:08:00 Systolic blood 2020-12-08 129 mm[Hg] NPI:[id number] 5 pressure 14:08:00 Diastolic blood 2020-12-08 81 mm[Hg] NPI:[id number] 05 pressure 14:08:00 Heart rate 2020-12-08 79 /min 14:08:00 Body temperature 2020-12-08 35.72 Sia NPI:[id number] 205 14:08:00 Body height 2020-12-08 175.3 cm 14:08:00 Body weight 2020-12-08 117.935 kg 14:08:00 BMI 2020-12-08 38.40 kg/m2 14:08:00 Systolic blood 2020-11-25 142 mm[Hg] NPI:[id number] 5 pressure 14:07:00 Diastolic blood 2020-11-25 87 mm[Hg] NPI:[id number] 05 pressure 14:07:00 Heart rate 2020-11-25 74 /min 14:07:00 Body temperature 2020-11-25 36.94 Sia NPI:[id number] 205 14:07:00 Body height 2020-11-25 175.3 cm 14:07:00 Body weight 2020-11-25 126.1 kg 14:07:00 BMI 2020-11-25 41.05 kg/m2 14:07:00 Systolic blood 2020-11-25 142 mm[Hg] NPI:[id number] 5 pressure 14:07:00 Diastolic blood 2020-11-25 87 mm[Hg] NPI:[id number] 05 pressure 14:07:00 Heart rate 2020-11-25 74 /min 14:07:00 Body temperature 2020-11-25 36.94 Sia NPI:[id number] 205 14:07:00 Body height 2020-11-25 175.3 cm 14:07:00 Body weight 2020-11-25 126.1 kg 14:07:00 BMI 2020-11-25 41.05 kg/m2 14:07:00 Systolic blood 2020-11-04 161 mm[Hg] NPI:[id number] 5 pressure 14:02:00 Diastolic blood 2020-11-04 98 mm[Hg] NPI:[id number] 05 pressure 14:02:00 Heart rate 2020-11-04 71 /min 14:02:00 Body temperature 2020-11-04 35.67 Sia NPI:[id number] 205 14:02:00 Body height 2020-11-04 175.3 cm 14:02:00 Body weight 2020-11-04 133.811 kg 14:02:00 BMI 2020-11-04 43.56 kg/m2 14:02:00 Systolic blood 2020-11-04 161 mm[Hg] NPI:[id number] 5 pressure 14:02:00 Diastolic blood 2020-11-04 98 mm[Hg] NPI:[id number] 05 pressure 14:02:00 Heart rate 2020-11-04 71 /min 14:02:00 Body temperature 2020-11-04 35.67 Sia NPI:[id number] 205 14:02:00 Body height 2020-11-04 175.3 cm 14:02:00 Body weight 2020-11-04 133.811 kg 14:02:00 BMI 2020-11-04 43.56 kg/m2 14:02:00 Systolic blood 2021-02-16 136 mm[Hg] [facility] pressure 13:06:00 Hospital Diastolic blood 2021-02-16 92 mm[Hg] [facility] pressure 13:06:00 Hospital Heart rate 2021-02-16 80 /min [facility] 13:06:00 Hospital Body temperature 2021-02-16 36.89 Sia [facility] 13:04:00 Hospital Respiratory rate 2021-02-16 18 /min [facility] 13:04:00 Hospital Body height 2021-02-16 174.5 cm [facility] 13:04:00 Hospital Body weight 2021-02-16 104.418 kg [facility] 13:04:00 Hospital BMI 2021-02-16 34.29 kg/m2 [facility] 13:04:00 Hospital Oxygen saturation 2021-02-16 98 /min [facility] in Arterial blood 13:04:00 Hospital by Pulse oximetry Body height 2020-08-19 69 [in_us] 10:01:00 Weight 2020-08-19 292.8 [lb_av] 10:01:00 Body mass index 2020-08-19 43.24 kg/m2 NPI:[id number] 05 (BMI) [Ratio] 10:01:00 Body temperature 2020-08-19 97.4 [degF] Method: NPI:[id number] 205 10:01:00 Temporal Heart Rate 2020-08-19 83 /min 10:01:00 Systolic blood 2020-08-19 170 mm[Hg] Location: LUE; NPI:[id number] 205 pressure 10:01:00 Position: Sitting Diastolic blood 2020-08-19 99 mm[Hg] Location: LUE; NPI:[id number] pressure 10:01:00 Position: Sitting Procedures Procedure Date / Time Performing Clinician Source Performed US RENAL 2021-04-27 18:20:00 Keyla Loya XR CHEST 2 VW 2021-04-27 18:00:43 Keyla Loya ECG 12-LEAD 2021-04-27 16:41:25 Keyla Loya TTE COMPLETE, WO CONTRAST, 2021-04-27 15:22:00 Keyla Loya [facility] W DOPPLER ([id number]) Abdifatah URINE CULTURE 2021-02-16 16:21:00 Keyla Loya COMPREHENSIVE METABOLIC 2021-02-16 16:21:00 Keyla Loya [facility] PANEL Abdifatah URINALYSIS SCREEN AND 2021-02-16 16:21:00 Loya, [facility] MICROSCOPY, WITH REFLEX TO Abdifatah CULTURE HIV AG/AB COMBINATION 2021-02-16 16:21:00 [facility] Abdifatah HEPATITIS A ANTIBODY TOTAL 2021-02-16 16:21:00 [facility] Abdifatah HEPATITIS B CORE ANTIBODY 2021-02-16 16:21:00 [facility] TOTAL Abdifatah HEPATITIS B SURFACE AB, 2021-02-16 16:21:00 [facility] QUANTITATIVE Abdifatah HEPATITIS B SURFACE 2021-02-16 16:21:00 [facility] ANTIGEN Abdifatah HEPATITIS C ANTIBODY 2021-02-16 16:21:[address] [facility] Abdifatah SYPHILIS TREPONEMA SCREEN 2021-02-16 16:21:00 [facility] WITH RPR CONFIRMATION Abdifatah (REVERSE ALGORITHM) HC COMPLETE BLD COUNT 2021-02-16 16:21:00 [facility] W/AUTO DIFF Abdifatah PROTHROMBIN TIME WITH INR 2021-02-16 16:21:00 [facility] Abdifatah PARTIAL THROMBOPLASTIN 2021-02-16 16:21:[address] [facility] TIME (PTT) Abdifatah ABORH - TRANSPLANT 2021-02-16 16:21:00 [facility] Abdifatah DRUG STANFORD 9, SER/JACKSON, SCRN 2021-02-16 16:21:00 [facility] W/RFLX TO CONF Abdifatah NICOTINE AND COTININE, 2021-02-16 16:21:[address] [facility] SERUM Abdifatah TB T-SPOT 2021-02-16 16:21:00 Keyla Loya [facility] ESTIMATED GFR 2021-02-16 16:21:00 [facility] A1 ANTIGEN PATIENT TYPING 2021-02-16 16:21:00 [facility] Abdifatah CV LEFT HEART CATH 2020-11-19 20:44:38 [facility] HEMODIALYSIS 2020-11-19 17:57:26 Kalyani Kelsey shon Garcia CV STRESS TEST NUCLEAR 2020-11-19 15:45:00 Munoz, [facility] CARDIO NM MYOCARDIAL PERFUSION 2020-11-19 15:45:00 [facility] STRESS REST 2 DAY BASIC METABOLIC PANEL 2020-11-19 10:35:00 [facility] 2020-11-19 10:35:00 Barfuentes-Bull, [facility] ESTIMATED GFR 2020-11-19 10:35:00 Baranowska-Daca, [facility] Radha BASIC METABOLIC PANEL 2020-11-18 21:05:00 Baranowska-Daca, [facility] ESTIMATED GFR 2020-11-18 21:05:00 Barfuentes-Roloa, [facility] 12-LEAD 2020-11-18 19:33:44 Ashish Valentin [facility] HEMODIALYSIS 2020-11-18 13:18:17 Barfuentes-Bull, [facility] ospital Radha URINE PROTEIN 2020-11-18 10:40:00 Amberly-Bull, [facility] ospital ELECTROPHORESIS, RANDOM [facility] PROTEIN, URINE, RANDOM 2020-11-18 10:40:00 Amberly-Bull, [facility] CREATININE LEVEL, URINE, 2020-11-18 10:40:00 Low, [facility] RANDOM [facility] ANTI-NEUTROPHILIC 2020-11-18 10:37:00 Amberly-Bull, [facility] CYTOPLASMIC ABS PANEL [facility] SERUM ELECTROPHORESIS 2020-11-18 10:37:00 Barfuentes-Bull, [facility] IR TUNNELED DIALYSIS 2020-11-17 19:07:00 Low [facility] CATHETER PLACEMENT [facility] GUIDED VASCULAR ACCESS 2020-11-17 19:07:00 Low [facility] US RENAL 2020-11-17 18:50:36 Barfuentes-Bull, [facility] Radha US RENAL DOPPLER 2020-11-17 18:50:20 Low [facility] TTE COMPLETE, WO CONTRAST, 2020-11-17 16:25:00 Ashish Valentin [facility] W DOPPLER ([id number]) HC COMPLETE BLD COUNT 2020-11-17 09:35:00 Malka [facility] W/AUTO DIFF BASIC METABOLIC PANEL 2020-11-17 09:35:00 Rema Ace [facility] ESTIMATED GFR 2020-11-17 09:35:00 [facility] URINE CULTURE 2020-11-16 23:49:00 [facility] URINALYSIS SCREEN AND 2020-11-16 23:49:00 Rema Ace [facility] MICROSCOPY, WITH REFLEX TO CULTURE HEPATITIS C ANTIBODY 2020-11-16 23:49:00 Low [facility] HEPATITIS B CORE ANTIBODY 2020-11-16 23:49:00 Low [facility] IGM [facility] PROTHROMBIN TIME WITH INR 2020-11-16 23:49:00 Low [facility] THYROID STIMULATING 2020-11-16 23:49:00 Low [facility] HORMONE [facility] HEPATITIS B SURFACE 2020-11-16 23:41:00 [facility] HEPATITIS B SURFACE 2020-11-16 23:41:00 [facility] HEPATITIS B CORE ANTIBODY 2020-11-16 23:41:00 Low [facility] TOTAL [facility] COVID-19 QUALITATIVE 2020-11-16 21:09:00 Rema Ace [facility] RT-PCR HEMODIALYSIS 2020-11-16 21:07:48 [facility]W PORTABLE 2020-11-16 19:03:21 Rema Ace [facility] PROTHROMBIN TIME WITH INR 2020-11-16 18:44:00 Rema Ace [facility] PARTIAL THROMBOPLASTIN 2020-11-16 18:44:00 Rema Ace [facility] TIME (PTT) TROPONIN 2020-11-16 18:44:00 [facility] B NATRIURETIC PEPTIDE 2020-11-16 18:44:00 Malka [facility] ECG 12-LEAD 2020-11-16 18:37:49 [facility] ED PRELIMINARY 2020-11-16 18:36:03 Malka [facility] INTERPRETATION COMPREHENSIVE METABOLIC 2020-11-16 18:35:00 Malka [facility] PANEL HC COMPLETE BLD COUNT 2020-11-16 18:35:00 Malka [facility] W/AUTO DIFF ESTIMATED GFR 2020-11-16 18:35:[address] [facility] spital [Q] COMPREHENSIVE 2020-08-19 00:00:00 NPI:[id number] METABOLIC PANEL W/eGFR (REFL) [Q] QUESTASSURED 25-OH VIT 2020-08-19 00:00:00 N PI:[id number] D, (D2,D3), LC/MS/MS [QL] CBC (INCLUDES 2020-08-19 00:00:00 NPI:[id number] DIFF/PLT) [QL] FOLATE, SERUM 2020-08-19 00:00:00 NPI:[id number] [QL] HEMOGLOBIN A1c 2020-08-19 00:00:00 NPI:[id number] [QL] IRON AND TOTAL IRON 2020-08-19 00:00:00 NPI :[id number] BINDING CAPACITY [QL] LIPID PANEL 2020-08-19 00:00:00 NPI:[id number] [QL] PTH, INTACT (WITHOUT 2020-08-19 00:00:00 ELECTROMYOGRAPHIC TECHNICIAN I:[id number] CALCIUM) [QL] TSH, 3RD GENERATION 2020-08-19 00:00:00 NPI :[id number] W/REFLEX TO FT4 [QL] VITAMIN A (RETINOL) 2020-08-19 00:00:00 NPI :[id number] [QL] VITAMIN B1, WHOLE 2020-08-19 00:00:00 NPI:1 [id number] BLOOD [QL] VITAMIN B12 2020-08-19 00:00:00 NPI:[id number] [QL] VITAMIN E 2020-08-19 00:00:00 NPI:[id number] 05 (TOCOPHEROL) Plan of Care Planned Activity Planned Date Details Comments Source Future Scheduled 2021-06-22 COVID-[address] [facility] 13:53:41 (1) [code = COVID-19 VACCINE (1)] Future Scheduled 2021-06-22 [facility]FLUENZA [facility]ACCINE [facility] 13:53:41 [code = INFLUENZA VACCINE] Encounters Start End Encounter Admission Attending Care Care Encounter Source Date/Time Date/Time Type Type Clinicians Facility Department ID 2020-12-31 [facility] [id number] NPI:152 01:03:38 GERMÁN [id number] 2020-12-08 [facility] [id number] NPI:152 09:46:34 GERMÁN [id number] 2020-11-13 [facility] [id number] NPI:152 11:15:36 GERMÁN [id number] 2021-07-14 2021-07-14 [facility] [id number] [place] 00:00:00 00:00:00 KEYLA [facility] 2021-06-18 2021-06-18 Office Ana Luisa [facility] 1.2.840.114 [id number] NPI:152 14:30:00 14:30:00 Visit Germán [place] 350.1.13.58 8 [id number] MEDICAL 9.2.7.2.686 [facility] [id number] 1 2021-05-27 2021-05-27 Documentat Leo 1.2.840.1 [id number] Methodi 00:00:00 00:00:00 ion Annemarie 40523.1.1 211 3.430.2.7 Hospit a .3.955380 l .8 2021-04-27 2021-04-27 [facility] Shalini, 1.2.840.1 [id number] Methodi 11:59:21 23:59:00 Encounter Keyla 59402.1.[address] Abdifatah 3.430.2.7 Hospit a .3.444215 l .8 2021-04-27 2021-04-27 [facility] 1.2.840.1 [id number] Methodi 11:31:18 11:58:00 Encounter Keyla [address]975.1.[address] Abdifatah 3.430.2.7 Hospit a .3.352846 l .8 2021-04-27 2021-04-27 [facility] 1.2.840.1 [id number] Methodi 08:15:00 11:30:00 Encounter Keyla 37254.1.[address] Abdifatah 3.430.2.7 Hospit a .3.020805 l .8 2021-04-27 2021-04-27 [facility] Keyla Loya 1.2.840.1 1 [id number] Methodi 09:17:36 10:17:36 Support Gorge Holm 26977.1.[address] 3.430.2.7 Hospit a .3.516640 l .8 2021-04-27 2021-04-27 Social Keyla Loya 1.2.840.1 10 [id number] Methodi 09:17:15 10:17:15 Work Johnson Alatorre 43201.1.[address] 3.430.2.7 Hospit a .3.060222 l .8 2021-04-27 2021-04-27 Travel 1.2.840.1 1.2.409.823 [id number] [id number] Methodi 00:00:00 00:00:[address] 3.430.2.7 0.2.7.3.698 Ho spita .3.976528 084.8 l .8 2021-03-19 2021-03-19 Office JACK MORGAN [facility] 1.2.840.114 [id number] NPI:152 12:16:47 12:31:47 Visit BLANCA HUMMEL 350.1.13.58 [id number] [facility] 9.2.7.2.686 [place] 2 [id number] AND 4 WOMENS 2021-02-16 2021-03-10 Office Asked, No Pcp 1.2.840.1 [id number] Methodi 07:44:41 12:42:32 Visit Keyla Loya Abdifatah 65886.1.1 [address] Brown 3.430.2.7 Hospita .3.396483 l .8 2021-02-16 2021-02-16 Office Asked, No Pcp 1.2.840.1 [id number] Methodi 07:44:27 07:59:27 Visit Keyla Loya Abdifatah 13812.1.1 [address] 3.430.2.7 Hospita .3.083579 l .8 2021-02-16 2021-02-16 Travel 1.2.840.1 1.2.453.818 9333 [id number] Methodi 00:00:00 00:00:[address] 3.430.2.7 0.2.7.3.698 Ho spita .3.779024 084.8 l .8 2021-02-10 2021-02-10 Documentat Ford Leonard 1.2.840.1 [id number] [id number] Methodi 00:00:00 00:00:[address] 3.430.2.7 Hospit a .3.682010 l .8 2021-01-24 2021-01-24 JACK Gong 1.2.840.114 [id number] NPI:152 00:00:00 00:00:00 Blanca [place] 350.1.13.58 8 [id number] MEDICAL 9.2.7.2.686 BUILDING [id number] 1 2021-01-24 2021-01-24 JACK Gong 1.2.840.114 [id number] 00:00:00 00:00:00 Blanca [place] 350.1.13.58 MEDICAL 9.2.7.2.686 BUILDING [id number] 1 2020-12-28 2020-12-28 Travel 1.2.840.1 1.2.080.758 8274 [id number] Methodi 00:00:00 00:00:[address] 3.430.2.7 0.2.7.3.698 Ho spita .3.958477 084.8 l .8 2020-12-08 2020-12-08 Office JACK Morgan 1.2.840.114 [id number] NPI:152 09:06:38 09:46:37 Visit Blanca [place] 350.1.13.58 8 [id number] MEDICAL 9.2.7.2.686 BUILDING [id number] 1 2020-12-08 2020-12-08 Office JACK Morgan 1.2.840.114 [id number] 09:06:38 09:46:37 Visit Blanca [place] 350.1.13.58 MEDICAL 9.2.7.2.686 BUILDING [id number] 1 2020-12-07 2020-12-07 Telephone Yaritza 1.2.840.1 [id number] Methodi 00:00:00 00:00:[address] 3.430.2.7 Hospit a .3.327891 l .8 2020-11-30 2020-12-02 Outpatient ANA LUISA [facility] DAVID [address] [facility] 20:30:00 13:25:00 GERMÁN 2020-11-25 2020-11-25 Consult JACK Orosco 1.2.840.114 [id number] NPI:152 09:01:28 09:31:28 Germán [place] 350.1.13.58 8 [id number] MEDICAL 9.2.7.2.686 BUILDING [id number] 1 2020-11-25 2020-11-25 Consult JACK Orosco 1.2.840.114 [id number] 09:01:28 09:31:28 Germán [place] 350.1.13.58 MEDICAL 9.2.7.2.686 BUILDING [id number] 1 2020-11-16 2020-11-19 [facility] Connor Santacruz il 1.2.840.1 [id number] Methodi 13:03:00 21:10:00 Encounter Ashish Valentin 65633.1.[address] 3.430.2.7 Hospit a .3.748014 l .8 2020-11-19 2020-11-19 Surgery Munoz, 1.2.840.1 [id number] Methodi 15:15:00 16:15:[address] 3.430.2.7 Hospit a .3.151786 l .8 2020-11-19 2020-11-19 Telephone Cherelle Escudero 1.2.8 40.114 [id number] NPI:152 00:00:00 00:00:00 Cherelle Escudero 350.1.13.5 8 [id number] MEDICAL 9.2.7.2.686 [facility] [id number] 1 2020-11-19 2020-11-19 Telephone Kena SANTIAGO 1.2.840.114 [id number] 00:00:00 00:00:00 , Cherelle [place] 350.1.13.58 MEDICAL 9.2.7.2.686 [facility] [id number] 1 2020-11-04 2020-11-04 Office JACK Orosco 1.2.840.114 [id number] NPI:152 08:57:36 09:12:36 Visit Germán CABRERALUCIA 350.1.13.58 8 [id number] MEDICAL 9.2.7.2.686 [facility] [id number] 1 2020-11-04 2020-11-04 Office JACK Orosco 1.2.840.114 [id number] 290 08:57:36 09:12:36 Visit Germán CABRERALUCIA 350.1.13.58 MEDICAL 9.2.7.2.686 [facility] [id number] 1 2020-10-21 2020-10-21 Telephone Candi Francisco [facility] 1. 2.840.114 [id number] NPI:152 00:00:00 00:00:00 Candi Francisco [facility] 350.1.13 .58 [id number] PLA[address] 2 9.2.7.2.686 [id number] 4 2020-10-21 2020-10-21 Telephone Tony [facility] 1.2.840.114 [id number] 00:00:00 00:00:00 Candi brandon [facility] 350.1.13.58 PLA[address] 2 9.2.7.2.686 [id number] 4 2020-08-26 2020-08-26 Appointmen KENDRA JACK UTP [id number] NPI:152 13:15:00 13:15:00 t; MAGDI REYES [id number] 2020-08-19 2020-08-19 Appointdesi ANA LUISAJACK Minimally [id number] NPI:152 09:45:00 09:45:00 t; GERMÁN OROSCO M.D. Invasive [id number] Martina DUNLAP [facility] ([facility]) Results Test Description Test Time Test Comments Results Result Comments Source Nm myocardial perfusion 2020-11-19 16:02:07 Test Item Value Reference Range Interpretation Comme nts Target HR (test code = 9073429374) bpm Resting HR (test code = 7395755019) BPM Resting BP (test code = 2791318593) 132/88 mmHg Post Peak HR (test code = bpm 3683605191) Percent HR (test code = 3640648883) 89.25 % Post Peak BP (test code = 146/52 mmHg 9136073825) Radiology Study observation (narrative) (test code = 06039-7) MARIANA (test code = MARIANA) Medium sized, moderate predominantly reversible defect in the basal to mid inferior wall, this is consistent with ischemia in the RCA vs LCx territory. Medium sized, mild fixed mid to distal anterior wall defect, this is likely consistent with soft tissue attenuation artifact, as opposed to scar. EF 53% ECGECG: T-wave changes.Stress Protocol/Tolerance FindingsThe patient exercised on a treadmill utilizing The [place] Protocol.Stress Ischemic ChangesArrhythmias: no arrhythmia noted.Isotope AdministrationThe isotope used for nuclear imaging was technetium tetrofosmin. Images performed at rest after an injection of 30 mCi. The resting administration time was at 09:22 CDT on 11/19/2020. Images performed at stress after an injection of 29 mCi. The stress administration time was at 14:42 CDT on 11/18/2020.Imaging Findings- The overall study quality is good. - The study is consistent with myocardial ischemia. - Medium sized, moderate predominantly reversible defect in the basal to mid inferior wall, this is consistent with ischemia in the RCA vs LCx territory. Medium sized, mild fixed mid to distal anterior wall defect, this is likely consistent with soft tissue attenuation artifact, as opposed to scar.Ventricles- The images were gated. - Ejection Fraction is 53% [facility] stress [id number] 19:52:22 Test Item Value Reference Range Interpretation Comments Resting HR (test code = 0701324728) Resting BP (test code 132&88 = 8719508648) Peak MET Achieved (test code = 1540022006) Protocol Name (test CHANO code = 9095213158) Time in Exercise 00:08:19 Phase (test code = 5880145853) Max Systolic BP (test code = 5647633169) Max Diastolic BP (test code = 5518847864) Max Heart Rate (test code = 0384231458) Max Predicted Heart Rate (test code = 4720731622) Target HR Formula (220 - Age)*85% (test code = 3975859236) Test Indication (test Abnormal ECG code = 0949744482) Arrhy During Ex (test none code = 1354934637) ECG Interp Before EX abnormal (test code = 6251903369) ECG Interp During Ex none (test code = 9256225416) Chest Pain Statement none (test code = 1283777912) Overall HR Response appropriate to Exercise (test code = 9077822556) Overall BP Response normal resting BP - To Exercise (test appropriate response code = 9540447070) Reason for Target Heart Rate Termination (test Achieved code = 0966345540) Stress Test -Waveform interpreted in Impression (test code report associated with = 1922706672) image study. No interpretation is provided as part of this Stress ECG report.--- Target HR (test code bpm = 5354972728) [facility], (w Contrast, Strain and 3D if needed)2020-11-17 21:16:31 Test Item Value Reference Range Interpretation Comments AoV Area, Vmax (test 2.90 cm2 code = 4847047954) AoV Area, VTI (test 2.68 cm2 code = 3833864518) AoV Mean PG (test mmHg code = 5126844837) AoV Peak PG (test mmHg code = 0297744136) AoV Vmax (test code 1.28 m/s = 5750758018) AoV VTI (test code = 0.27 m 3210997280) IVS,d (test code = 1.26 cm 8435178063) IVS/LVPW,2D (test code = 8427592568) Left Atrium 3.10 cm Dimension Anterior (test code = 9966825241) LV,d (test code = 5.17 cm 0832039208) LV EF,2D (test code 73.76 % = 9527215071) LV,s (test code = 3.31 cm 0093372065) LVOT area (test code 3.80 cm2 = 8164745040) LVOT Diam,S (test 2.20 cm code = 3298678633) LVOT Vmax (test code 0.98 m/s = 0570729030) LVOT VTI (test code 0.19 m = 2535780353) LVPWD,d (test code = 1.01 cm 1264302050) PV Pk Grad (test mmHg code = 0796347732) PV VMAX (test code = 1.09 m/s 5915768623) RVOT Vmax (test code 0.76 m/s = 2047233957) MV E A ratio (test code = 3303260871) E wave decelartion msec time (test code = 5910660508) MV Peak A John (test 0.60 m/s code = 7826463828) MV valve area p 1/2 2.62 cm2 method (test code = 8828117414) MV Peak E John (test 0.85 m/s code = 8514907509) MV stenosis pressure 84.10 ms 1/2 time (test code = 1283019888) LVOT stroke volume 0.72 cm3 (test code = 7118421915) AV LVOT peak mmHg gradient (test code = 5871929894) Ao Root,d,2D (test 3.00 cm code = 5518037392) LV SYS VOL (test 44.46 ml code = 6877607218) LV ROCHA VOL (test 127.78 ml code = 6847649588) LV SV Teich 2D (test 83.33 ml code = 7524869495) LV Vol s Teich PSAX 44.46 ml (test code = 7821141861) RVOT pk grad (test mmHg code = 6505596196) AoV Vmn (test code = 8529858330) LV FS Teich 2D (test code = 9842063631) MV AE ratio (test code = 7869916646) LV FS Cube 2D (test code = 8418566759) LVOT Vmn (test code = 1442234295) NH End Rocha Grad (test code = 5009495418) NH End Diat John (test code = 3619847405) Aov area Vmn (test 2.34 cm2 code = 6812050382) LVOT mean grad (test mmHg code = 1562316041) MAX Pred HR (test code = 6552901558) 85 of MPHR (test code = 5288932304) Ao d LA s ratio (test code = 9429737985) Calc MPHR (test code bpm = 8499217109) LV SV Cube 2D (test 101.92 ml code = 2347802736) LV vol d cube 2D 138.19 ml (test code = 6331544556) LV vol s cube 2D 36.26 ml (test code = 9283813880) MV Decel slope (test 2.92 m/s2 code = 6109820114) Pred Exer Dur R1 (test code = 4008593254) Pred METS R1 (test code = 9685327426) Velocity Ratio 0.77 m/s (V1/V2) (test code = 4689) EF (test code = 65.21 % 2627242919) E/A ratio (test code = 8130497542) LVOT VTI (CM) (test 19.00 cm code = 8950364317) MARIANA (test code = Left ventricular MARIANA) systolic function is normal. Left Ventricular ejection fraction is 60 - 65%. Right Ventricle: Normal right ventricular size, wall thickness and global function. Pericardium: No pericardial effusion seen. Diastology: Spectral Doppler shows normal pattern of LV diastolic filling. Normal LV filling pressure. Trace pulmonary valve regurgitation. Left VentricleThe left ventricular chamber size is normal. Left ventricular systolic function is normal. Left Ventricular ejection fraction is 60 - 65%. Normal left ventricular wall thickness and regional wall motion.Right VentricleNormal right ventricular size, wall thickness and global function.Left AtriumLA size is normal. The left atrium size by volume is normal.Right AtriumThe right atrium is normal.Mitral ValveThe mitral valve appears normal. No evidence of significant mitral valve regurgitation. No evidence of mitral valve stenosis.Tricuspid ValveThe tricuspid valve appears normal. No significant tricuspid valve regurgitation. No evidence of tricuspid valve stenosis.Aortic ValveThe aortic valve appears normal. No evidence of significant aortic regurgitation. No evidence of aortic valve stenosis.Pulmonic ValveThe pulmonic valve appears normal. Trace pulmonary valve regurgitation. No evidence of pulmonary valve stenosis.PericardiumNo pericardial effusion seen.Pulmonary ArteryThe pulmonary artery appears normal.DiastologySpectral Doppler shows normal pattern of LV diastolic filling. Normal LV filling pressure.AortaAortic root is normal.Study Quality All standard echocardiographic views were obtained. Study quality is good. [facility][] LIPID [id number] 08:11:00 Test Item Value Reference Range Interpretation Comments CHOLESTEROL, TOTAL; 144 mg/dl <200 N Normal (test code = 2093-3) HDL CHOLESTEROL; 42 mg/dl See_Comment N [Automated [...] r nancy: <100 Normal (test code = SEYMOUR} Desirabl e range <100 36315-7) mg/dL for prima ry prevention; <7 0 [...] Rohit SS et al . EPI. 2013;310(19): 8084-0199 ([email or web address]://educati [email or web address].Ques [email or web address] m/faq/F AQ164) CHOL/HDLC RATIO 3.4 {CALC} <5.0 N (test code = CHOL/HDLC RATIO) NON HDL CHOLESTEROL 102 {MG/DL <130 N For rakel ents with (test code = NON SEYM[place]} diabetes pl us 1 major HDL CHOLESTEROL) ASCVD risk factor, treating to a non-HDL-C goal of <100 mg/dL (LDL-C of <70 mg/dL) is consi dered a therapeutic opt ion. [Q] COMPREHENSIVE METABOLIC PANEL W/eGFR (REFL)2020-08-20 08:11:00 Test Item Value Reference Range Interpretation Comments GLUCOSE; Normal 116 mg/dl 65-139 N Non-fasting (test code = 1547-9) referen ce interval UREA NITROGEN (BUN) 75 mg/dl 7-25 (test code = UREA NITROGEN (BUN)) CREATININE (test 5.65 mg/dl 0.60-1.35 code = CREATININE) eGFR NON-AFR. 12 See_Comment [Automated me ssage] CYMRAES (test code {ML/MIN/1.7} The syst em which = eGFR NON-AFR. generated th is CYMRAES) result transmit jd reference range : > OR = 60. The reference range was not used to interpret this result as normal/abnormal . eGFR 14 See_Comment [Automated mes laverne] CYMRAES (test code {ML/MIN/1.7} The syst em which = eGFR generated thi s CYMRAES) result transmit jd reference range : > [...] mg/dl 0.2-1.2 N Normal (test code = 55991-6) ALKALINE PHOSPHATASE 59 u/l 36-130 N (test code = ALKALINE PHOSPHATASE) AST; Normal (test 26 u/l 10-40 N code = 1916-6) ALT; Normal (test 43 u/l 9-46 N code = 1742-6) [QL] IRON AND TOTAL IRON BINDING [id number] 08:11:00 Test Item Value Reference Range Interpretation Comments IRON, TOTAL (test code = 75 {mcg/dl} 50-180 N IRON, TOTAL) IRON BINDING CAPACITY (test 234 {mcg/dL ca} 250-425 code = IRON BINDING CAPACITY) % SATURATION (test code = % 32 {% CALC} 20-48 N SATURATION) [QL] CBC (INCLUDES DIFF/PLT)2020-08-20 08:11:00 Test Item Value Reference Range Interpretation Comments WHITE BLOOD CELL COUNT 8.7 {Thousand/u} 3.8-10.8 N (test code = WHITE BLOOD CELL COUNT) RED BLOOD CELL COUNT (test 5.07 {Million/uL} 4.20-5.80 N code = RED BLOOD CELL COUNT) HEMOGLOBIN; Below Low 12.9 g/dl 13.2-17.1 Threshold (test code = 71287-1) HEMATOCRIT; Normal (test 39.4 % 38.5-50.0 N code = 4544-3) MCV; Below Low Threshold 77.7 fL 80.0-100.0 (test code = 787-2) MCHC; Normal (test code = 32.7 g/dl 32.0-36.0 N 07583-4) RDW; Normal (test code = 14.7 % 11.0-15.0 N 788-0) PLATELET COUNT; Normal 196 {Thousand/u} 140-400 N (test code = 777-3) MPV; Normal (test code = 10.4 fL 7.5-12.5 N 84077-4) ABSOLUTE NEUTROPHILS (test 5203 {cells/uL} 9754-7010 N code = ABSOLUTE NEUTROPHILS) ABSOLUTE LYMPHOCYTES [...] Normal (test 10.2 % N code = 33920-3) EOSINOPHILS; Normal (test 1.8 % N code = 19759-4) BASOPHILS; Normal (test 0.7 % N code = 77985-5) [QL] PTH, INTACT (WITHOUT CALCIUM)2020-08-20 08:11:00 Test Item Value Reference Interpretation Comments Range PARATHYROID 110 pg/ml 14-64 Interpretive Gu sanna Intact HORMONE, INTACT PTH (test code = Calcium-------- PARATHYROID HORMONE, INTACT) -------Norm al Parathyroid Normal NormalHypoparat hyroidism Low or Low Norm al LowHyperparathy roidism Primary Normal or High High Secondary High Normal or Low Tertiary High HighNon-Parathy roid Hypercalcemia Low or Low Normal High [QL] VITAMIN E (TOCOPHEROL)2020-08-20 08:11:00 Test Item Value [...] perf ormance characteristics have been determined by [employer]. It has not been cleared or approved by theFDA. This as say has been validated pursu ant to the CLIA regulation s and is used for clinic al purposes. LKME-UIAVY-PINEGH 1.4 mg/L <4.4 This test was developed and ANNA (test code = its analyt ical performance WORX-BYKDM-FRRLBO characteri stics have been ANNA) determined by [employer]. It has not been cleared or approved [...] analytical performance characteristics have been determined by [employer]. It has not been cleared or approved by theFDA. This assay has been validated pursuant to the CLIA regulations and is used for clinical purposes. [QL] FOLATE, [id number] 08:11:00 Test Item Value Reference Range Interpretation Comments FOLATE, SERUM (test 11.1 ng/ml N Referenc e Range code = FOLATE, Low: SERUM) <3.4 Borderline: 3.4-5.4 Normal: >5.4 [QL] VITAMIN [id number] 08:11:00 Test Item Value Reference Range Interpretation Comments VITAMIN B12 (test code = VITAMIN 1005 pg/ml 200-1100 N B12) [QL] TSH, 3RD GENERATION W/REFLEX TO [id number] 08:11:00 Test Item Value Reference Range Interpretation Comments TSH, 3RD GENERATION W/REFLEX TO 2.07 {MIU/L} 0.40-4.50 N FT4 (test code = TSH, 3RD GENERATION W/REFLEX TO FT4) [QL] VITAMIN B1, WHOLE [id number] 08:11:00 Test Item Value Reference Range Interpretation Comments VITAMIN B1, WHOLE 85 nmol/L 78-185 Vitamin north pplementation BLOOD (test code = within 24 hours prior VITAMIN B1, WHOLE toblood dr rincon may affect BLOOD) the accuracy of results. This test was d eveloped and its analyti seymour performance characteristics have been determined by [employer]. It has not been cleared or approved by theFDA. This assay has been validated pursuant to the CLIA regula tions and is used for cli nical purposes. [QL] HEMOGLOBIN [id number] 08:11:00 Test Item Value Reference Range Interpretation [...] di abetes in children. Ac cording to [place] [employer] (ADA)guidelines , hemoglobin A1c <7.0% represents optimalcontrol in non- di abetic patients. Differentmetric s may apply to specif ic patient populat ions. Standards of Me dical Care in Diabete s(ADA). [QL] VITAMIN A (RETINOL)2020-08-20 08:11:00 Test Item Value Reference Range Interpretation Comments VITAMIN A (test 143 {mcg/dl} 38-98 Clin Chem Vol. code = VITAMIN A) 34.No.8. p [id number]. 1998Vitamin supplementation within 24 hours prior to blood draw may affect the accuracy of res ults. This test was d eveloped and its analyti seymour performance characteristics have been determined by [employer]. It has not been cleared or approved by theFDA. This assay has been valida jd pursuant to the CLIA regulations and is used for clinical pu rposes. REPORT COMMENT:FASTING:NONPI:[id number][Q] QUESTASSURED 25-OH VIT D, (D2,D3), LC/MS/[id number] 08:11:00 Test Item Value Reference Range Interpretation Comments VITAMIN D, <4.0 ng/ml 30-100 (Note)Reference range: Not 25-OH, D2 established Thi s test was (test code = developed and i ts analytical VITAMIN D, performancechar acteristics have 25-OH, D2) been determined by [employer]. It has not been cleared or approved by the US Food and Drug Administra tion. Thisassay has been valida jd pursuant to the CLIA regula tion and is usedfor Clinica l purposes.MDed [id number] [facility] [address] [id number] 00MicSandy Lara ote 1 Note 1 For additional info rmation, please refer to http://educatio n.[employer].com/faq/FAQ1 99 (This link is being provided for informational/e ducational purposes only.) VITAMIN D, 20 ng/ml Reference range : Not 25-OH, D3 established (test code = VITAMIN D, 25-OH, D3) Reference range: Not establishedREPORT COMMENT:FASTING:NONPI:[id number]
--- NOTE | 2021-09-28 21:59 | RAD REPORT ---
EXAM DESCRIPTION: CT - Ct Stroke Brain Wo Cont - 09/28/2021 9:51 pm CLINICAL HISTORY: Transient ischemic attack (TIA) Headache, drowsiness, CVA COMPARISON: No comparisons TECHNIQUE: All CT scans are performed using dose optimization technique as appropriate and may inclu de automated exposure control or mA/KV adjustment according to patient size. FINDINGS: No intracranial hemorrhage, hydrocephalus or extra-axial fluid collection.No areas of brai n edema or evidence of midline shift. The paranasal sinuses and mastoids are clear. The calvarium is intact. IMPRESSION: No acute intracranial abnormality. The findings were discussed with Rom Roe in the ER on 02/23/2022 at 9:55 p.m. by telephone.
[2021-09-28] MEDS ORDERED: MECLIZINE HCL 12.5 MG TAB ONE (22:20)
[2021-09-28] MEDS ORDERED: DIAZEPAM 10 MG/2 ML INJ SYRINGE ONE (22:21)
[2021-09-28 22:33] LABS: Magnesium 1.9 mg/dL (1.8-2.4); Potassium 4.9 mmol/L (3.5-5.1)
[2021-09-28 22:34] LABS: Absolute Lymphocytes (CBC) 0.9 K/uL (0.7-4.9); Lymphocytes % 8.9 % (15.3-44.8); MPV 8.7 fL (7.6-11.3); RBC Red Blood Cell Count 5.09 M/uL (4.33-5.43)
[2021-09-28 22:38] LABS: Protime INR 0.99
--- NOTE | 2021-09-28 23:48 | ER ---
Nurse's Notes [facility] Name: Roly Guy Jr Age: 36 yrs Sex: Male : 1985 Arrival Date: 09/28/2021 Time: 21:26 Bed 5 Private MD: Diagnosis: Benign paroxysmal vertigo Presentation: 09/28 21:35 Chief complaint: Spouse and/or significant other states: reports patient had an lp1 episodes of sudden onset dizziness with nausea, unsteady gait this morning, current episode with similar symptoms began tonight at 2100, patient reports feeling like everything is spinning around him, nausea, attempting to walk straight but leaning to the left. 21:35 Coronavirus screen: At this time, the client does not indicate any symptoms associated lp1 with coronavirus-19. Ebola Screen: No symptoms or risks identified at this time. Initial Sepsis Screen: Does the patient meet any 2 criteria? No. Patient's initial sepsis screen is negative. Does the patient have a suspected source of infection? No. Patient's initial sepsis screen is negative. Risk Assessment: Do you want to hurt yourself or someone else? Patient reports no desire to harm self or others. Onset of symptoms was September 28, 2021 at 21:00. 21:35 Method Of Arrival: Ambulatory lp1 21:35 Acuity: KAITLIN 2 lp1 22:00 An acute neurological deficit is present. The patient has been moved to a treatment al4 area. Pre-hospital glucose is not applicable to this patient. Triage Assessment: 22:00 The onset of the patients symptoms was September 28, 2021 at 21:00. General: Appears al4 uncomfortable, Behavior is calm, cooperative. Pain: Complains of pain in left frontal area, left side of the back of head, left side of forehead, left temporal area, left occipital area, left quaker, left ear and left base of the skull Pain currently is 10 out of 10 on a pain scale. Neuro: Level of Consciousness is awake, alert, obeys commands, Oriented to person, place, time, situation, Bicycle Repairer are equal bilaterally Speech is normal, Facial symmetry appears normal, Reports dizziness, headache in left. Cardiovascular: Capillary refill < 3 seconds Patient's skin is warm and dry. Rhythm is regular. Respiratory: Airway is patent Respiratory effort is even, unlabored, Respiratory pattern is regular. GI: Reports nausea. Musculoskeletal: Reports swaying to left when walking - not able to walk straight. Stroke Activation: Physician: Stroke Attending; Name: ; Notified At: ; Arrived At: Physician: Chief Stroke Resident; Name: ; Notified At: ; Arrived At: Physician: Stroke Resident; Name: ; Notified At: ; Arrived At: Physician: ED Attending; Name: ; Notified At: ; Arrived At: Physician: ED Resident; Name: ; Notified At: ; Arrived At: 09/29 00:12 stroke alert called at 2138. Rom Serranoortega is provider al4 Historical: - Allergies: 09/28 21:49 NSAIDS; lp1 21:49 Sulfa (Sulfonamide Antibiotics); lp1 - Home Meds: 21:49 Humira subcutaneous [Active]; doxazosin 1 mg oral tab nightly [Active]; febuxostat 80 lp1 mg oral tab 1 tab once daily [Active]; nebivolol 10 mg oral tab nightly [Active]; calcitriol 0.25 mcg Oral cap [Active]; hydralazine 50 mg Oral tab 1 tab 2 times per day [Active]; levothyroxine 100 mcg tab 1 tab once daily [Active]; colchicine 0.6 mg Oral cap [Active]; ezetimibe 10 mg oral tab 1 tab once daily [Active]; - PMHx: 21:49 CKD stage 3; DVT; Gout; Hyperlipidemia; Hypertension; Hypothyroidism; IGA Neuropathy; lp1 psoriasis; Psoriatic Arthritis; Rheumatoid Arthritis; - PSHx: 21:49 Gastric Bypass- November 2020; lp1 - Immunization history:: Adult Immunizations up to date. - Social history:: Smoking status: Patient denies any tobacco usage or history of. Screenin:00 Abuse screen: Denies threats or abuse. Nutritional screening: No deficits noted. al4 Tuberculosis screening: No symptoms or risk factors identified. Fall Risk No fall in past 12 months (0 pts). IV access (20 points). Ambulatory Aid- None/Bed Rest/Nurse Assist (0 pts). Gait- Impaired (20 pts.). Mental Status- Oriented to own ability (0 pts). Total Ly Fall Scale indicates Low Risk Score (25-44 pts). Fall prevention measures have been instituted. Side Rails Up X 2 Frequent Obs/Assesments occuring Family Present and informed to notify staff if they need to leave bedside. Assessment: 22:00 VAN Scoring: Arm Drift: Patients demonstrates NO arm weakness. Patient is VAN Negative. al4 22:20 The patient has not been NPO before screening. The patient is alert, and able to follow al4 commands. The patient does not exhibit slurred or garbled speech. The patient is not exhibiting difficulty speaking. The patient does not exhibit difficulty understanding words. The patient is able to swallow own secretions with no drooling or need for suction. Patient tolerated one teaspoon of water. No drooling, immediate coughing, gurgling, or clearing of the throat was noted. The patient tolerated 90mL of water. No drooling, immediate coughing, gurgling, or clearing of the throat was noted. The patient passed the bedside swallow screening. Oral medications may be given as ordered. Contact Physician for further diet orders. Provider notified of bedside swallow screening results: Rom ANNA. 23:00 T-PA (Activase) Screening: Contraindications: Other: physician discretion. al4 23:06 Reassessment: Patient is alert, oriented x 3, equal unlabored respirations, skin al4 warm/dry/pink. Patient states symptoms have not improved. 09/29 00:11 Reassessment: patient discharged by Karen Donnelly RN. al4 Vital Signs: 05 21:35 BP 147 / 104; Pulse 65; Resp 17; Temp 99.7(O); Pulse Ox 98% on R/A; Weight 88.45 kg lp1 (R); Height 5 ft. 9 in. (175.26 cm); Pain 0/10; 22:22 BP 146 / 94; Pulse 62; Resp 15 S; Pulse Ox 100% on R/A; al4 22:45 BP 145 / 97; Pulse 59; Resp 14; Pulse Ox 99% on R/A; al4 23:15 BP 146 / 99; Pulse 60; Resp 20 S; Pulse Ox 100% on R/A; al4 21:35 Body Mass Index 28.80 (88.45 kg, 175.26 cm) lp1 NIH Stroke Scale Scores: 22:00 NIHSS Score: 0 al4 22:35 NIHSS Score: 0 jr8 ED Course: : Patient arrived in ED. bp1 21:26 Rom Roe PA is PHCP. jr8 21:26 William Villeda MD is Attending Physician. jr8 21:46 Arm band placed on left wrist. lp1 21:49 Triage completed. lp1 21:53 CT Stroke Brain w/o Contrast In Process Unspecified. EDMS 22:00 Patient has correct armband on for positive identification. al4 22:00 child monitor on. Pulse ox on. NIBP on. al4 22:00 Inserted saline lock: 20 gauge in right antecubital area, using aseptic technique. al4 Blood collected. 22:00 Inserted saline lock: 18 gauge in left antecubital area, using aseptic technique. al4 ,using aseptic technique. by CATALINA Thorne. 22:30 Stroke CXR 1 View In Process Unspecified. EDMS 22:32 Mark Cruz is Primary Nurse. al4 23:48 Christina Thomas MD is Referral Physician. jr8 09/29 00:10 No provider procedures requiring assistance completed. IV discontinued, intact, al4 bleeding controlled, No redness/swelling at site. Pressure dressing applied, by Karen Donnelly RN. Administered Medications: 09/28 22:21 Drug: Meclizine 50 mg Route: PO; al4 23:20 Follow up: Response: No adverse reaction al4 22:28 Drug: Valium (diazepam) 2 mg {Note: 2RN dose check with MYRON Pyle and MYRON Batista. 2RN al4 medication draw up with MYRON Mathews .} Route: IVP; Site: left antecubital; 23:20 Follow up: Response: No adverse reaction al4 Outcome: 23:48 Discharge ordered by . jr8 09/29 00:10 Discharged to home with family. al4 Condition: stable Discharge instructions given to patient, family, Instructed on discharge instructions, follow up and referral plans. Demonstrated understanding of instructions, follow-up care. 00:13 Patient left the ED. al4 NIH Stroke Scale - NIH Stroke Score Date: 09/28/2021 Time: 22:00 Total Score = 0 1a. Level of Consciousness (LOC) - 0(Alert) 1b. Level of Consciousness (LOC) (Month \T\ Age) - 0(Both) 1c. LOC Commands (Open \T\ Closes Eyes/Geospatial Engineer) - 0(Both) 2. Best Gaze (Lateral Gaze Paresis) - 0(Normal) 3. Visual Field Loss - 0(No visual loss) 4. Facial Palsy - 0(Normal) 5a. Left Arm: Motor (10-second hold) - 0(No drift) 5b. Right Arm: Motor (10-second hold) - 0(No drift) 6a. Left Leg: Motor (5-second hold - always test supine) - 0(No drift) 6b. Right Leg: Motor (5-second hold - always test supine) - 0(No drift) 7. Limb Ataxia (finger/nose \T\ heel/matthews - test with eyes open) - 0(Absent) 8. Sensory Loss (pinprick arms/legs/face) - 0(Normal) 9. Best Language: Aphasia (description/naming/reading) - 0(No aphasia) 10. Dysarthria (speech clarity - read or repeat words) - 0(Normal) 11. Extinction and Inattention (visual/tactile/auditory/spatial/personal) - 0(No abnormality) Initials: al4 NIH Stroke Scale - NIH Stroke Score Date: 09/28/2021 Time: 22:35 Total Score = 0 1a. Level of Consciousness (LOC) - 0(Alert) 1b. Level of Consciousness (LOC) (Month \T\ Age) - 0(Both) 1c. LOC Commands (Open \T\ Closes Eyes/Geospatial Engineer) - 0(Both) 2. Best Gaze (Lateral Gaze Paresis) - 0(Normal) 3. Visual Field Loss - 0(No visual loss) 4. Facial Palsy - 0(Normal) 5a. Left Arm: Motor (10-second hold) - 0(No drift) 5b. Right Arm: Motor (10-second hold) - 0(No drift) 6a. Left Leg: Motor (5-second hold - always test supine) - 0(No drift) 6b. Right Leg: Motor (5-second hold - always test supine) - 0(No drift) 7. Limb Ataxia (finger/nose \T\ heel/matthews - test with eyes open) - 0(Absent) 8. Sensory Loss (pinprick arms/legs/face) - 0(Normal) 9. Best Language: Aphasia (description/naming/reading) - 0(No aphasia) 10. Dysarthria (speech clarity - read or repeat words) - 0(Normal) 11. Extinction and Inattention (visual/tactile/auditory/spatial/personal) - 0(No abnormality) Initials: justyn Signatures: Dispatcher [employer] Lynne Harris RN RN lp1 Rom Roe PA PA jr8 Oksana Quick Alexis al4 Corrections: (The following items were deleted from the chart) 09/28 21:58 21:49 PMHx: High Cholesterol; lp1 lp1 21:58 21:49 PMHx: kidney problems; St 3; lp1 lp1 09/29 00:10 00:09 T-PA (Activase) Screening: Contraindications: Other: physician discretion alDonovan al4
--- NOTE | 2021-09-28 23:48 | EDPHYS ---
Physician Documentation [facility] Name: Roly Guy Jr Age: 36 yrs Sex: Male : 1985 Arrival Date: 09/28/2021 Time: 21:26 Bed 5 Private MD: ED Physician William Villeda HPI: 09/28 22:35 This 36 yrs old Black Male presents to ER via Ambulatory with complaints of Dizziness. jr8 22:35 The patient presents to the emergency department with difficult walking, the patient is jr8 off balance. Onset: The symptoms/episode began/occurred acutely, today. Context: occurred at home. Associated signs and symptoms: Pertinent positives: dizziness, nausea. Severity of symptoms: At their worst the symptoms were moderate in the emergency department the symptoms have improved mildly. Patient's baseline: Neuro: alert and fully oriented, Motor: no deficits, Ambulation: walks without assistance, Speech: normal. The patient has not experienced similar symptoms in the past. The patient has not recently seen a physician. Patient stated that he had sudden onset dizziness this evening. Stated that he feels as if room is spinning. Worse with change in position . Historical: - Allergies: 21:49 NSAIDS; lp1 21:49 Sulfa (Sulfonamide Antibiotics); lp1 - Home Meds: 21:49 Humira subcutaneous [Active]; doxazosin 1 mg oral tab nightly [Active]; febuxostat 80 lp1 mg oral tab 1 tab once daily [Active]; nebivolol 10 mg oral tab nightly [Active]; calcitriol 0.25 mcg Oral cap [Active]; hydralazine 50 mg Oral tab 1 tab 2 times per day [Active]; levothyroxine 100 mcg tab 1 tab once daily [Active]; colchicine 0.6 mg Oral cap [Active]; ezetimibe 10 mg oral tab 1 tab once daily [Active]; - PMHx: 21:49 CKD stage 3; DVT; Gout; Hyperlipidemia; Hypertension; Hypothyroidism; IGA Neuropathy; lp1 psoriasis; Psoriatic Arthritis; Rheumatoid Arthritis; - PSHx: 21:49 Gastric Bypass- November 2020; lp1 - Immunization history:: Adult Immunizations up to date. - Social history:: Smoking status: Patient denies any tobacco usage or history of. ROS: 22:35 Eyes: Negative for injury, pain, redness, and discharge, ENT: Negative for injury, jr8 pain, and discharge, Neck: Negative for injury, pain, and swelling, Cardiovascular: Negative for chest pain, palpitations, and edema, Respiratory: Negative for shortness of breath, cough, wheezing, and pleuritic chest pain, Abdomen/GI: Negative for abdominal pain, nausea, vomiting, diarrhea, and constipation, Back: Negative for injury and pain, MS/Extremity: Negative for injury and deformity, Skin: Negative for injury, rash, and discoloration. 22:35 Neuro: Positive for dizziness, gait disturbance. Exam: 22:35 Constitutional: This is a well developed, well nourished patient who is awake, alert, jr8 and in no acute distress. Neck: Trachea midline, no thyromegaly or masses palpated, and no cervical lymphadenopathy. Supple, full range of motion without nuchal rigidity, or vertebral point tenderness. No Meningismus. Cardiovascular: Regular rate and rhythm with a normal S1 and S2. No gallops, murmurs, or rubs. Normal PMI, no JVD. No pulse deficits. Respiratory: Lungs have equal breath sounds bilaterally, clear to auscultation and percussion. No rales, rhonchi or wheezes noted. No increased work of breathing, no retractions or nasal flaring. Abdomen/GI: Soft, non-tender, with normal bowel sounds. No distension or tympany. No guarding or rebound. No evidence of tenderness throughout. Skin: Warm, dry with normal turgor. Normal color with no rashes, no lesions, and no evidence of cellulitis. MS/ Extremity: Pulses equal, no cyanosis. Neurovascular intact. Full, normal range of motion. Neuro: Awake and alert, GCS 15, oriented to person, place, time, and situation. Cranial nerves II-XII grossly intact. Motor strength 5/5 in all extremities. Sensory grossly intact. Cerebellar exam normal. Normal gait. Right sided nystagmus present Vital Signs: 21:35 BP 147 / 104; Pulse 65; Resp 17; Temp 99.7(O); Pulse Ox 98% on R/A; Weight 88.45 kg lp1 (R); Height 5 ft. 9 in. (175.26 cm); Pain 0/10; 22:22 BP 146 / 94; Pulse 62; Resp 15 S; Pulse Ox 100% on R/A; al4 22:45 BP 145 / 97; Pulse 59; Resp 14; Pulse Ox 99% on R/A; al4 23:15 BP 146 / 99; Pulse 60; Resp 20 S; Pulse Ox 100% on R/A; al4 21:35 Body Mass Index 28.80 (88.45 kg, 175.26 cm) lp1 NIH Stroke Scale Scores: 22:00 NIHSS Score: 0 al4 22:35 NIHSS Score: 0 8 MDM: 21:46 Patient medically screened. jr8 23:38 Data reviewed: vital signs, nurses notes, lab test result(s), EKG, radiologic studies, jr8 CT scan, plain films. Data interpreted: Pulse oximetry: on room air is 100 %. Interpretation: normal. Counseling: I had a detailed discussion with the patient and/or guardian regarding: the historical points, exam findings, and any diagnostic results supporting the discharge/admit diagnosis, lab results, radiology results, the need for outpatient follow up, an ENT specialist, to return to the emergency department if symptoms worsen or persist or if there are any questions or concerns that arise at home. Response to treatment: the patient's symptoms have markedly improved after treatment. ED course: Patient feeling markedly better after being medicated. No vertigo while at rest or with movement of head at this time. Will have patient get up and ambulate to see how he does before being discharged . 23:47 ED course: Patient was able to ambulate without any gate disturbance or ataxia. Will [facility] send home on meds to continue to help with vetigo. If worse knows to come back for further evaluation . 09/28 21:45 Order name: Basic Metabolic Panel; Complete Time: 22:34 8 09/28 21:45 Order name: CBC with Diff; Complete Time: 22:43 8 09/28 21:45 Order name: Magnesium; Complete Time: 22:34 8 09/28 21:45 Order name: Protime (+inr); Complete Time: 22:39 8 09/28 21:45 Order name: Ptt, Activated; Complete Time: 22:39 8 09/28 21:52 Order name: Glucose, Ancillary Testing; Complete Time: 22:04 EDOH 09/28 21:45 Order name: CT Stroke Brain w/o Contrast; Complete Time: 22:04 09/28 21:45 Order name: Stroke CXR 1 View 09/28 21:45 Order name: EKG; Complete Time: 21:47 09/28 21:45 Order name: Accucheck; Complete Time: :33 09/28 21:45 Order name: Cardiac monitoring; Complete Time: 22:33 09/28 21:45 Order name: EKG - Nurse/Tech; Complete Time: :09/28 21:45 Order name: IV Saline Lock; Complete Time: 22:09/28 21:45 Order name: Labs collected and sent; Complete Time: :09/28 21:45 Order name: NPO; Complete Time: :09/28 21:45 Order name: O2 Per Protocol; Complete Time: :33 09/28 21:45 Order name: O2 Sat Monitoring; Complete Time: 22:33 09/28 21:45 Order name: Stroke Swallow Screen; Complete Time: : Administered Medications: 22:21 Drug: Meclizine 50 mg Route: PO; al4 23:20 Follow up: Response: No adverse reaction al4 22:28 Drug: Valium (diazepam) 2 mg {Note: 2RN dose check with MYRON Pyle and MYRON Batista. 2RN al4 medication draw up with MYRON Mathews .} Route: IVP; Site: left antecubital; 23:20 Follow up: Response: No adverse reaction al4 Disposition: 09/29 03:51 Co-signature as Attending Physician, William Villeda MD. rn Disposition Summary: 09/28/21 23:48 Discharge Ordered Location: Home jr8 Problem: new jr8 Symptoms: have improved jr8 Condition: Stable jr8 Diagnosis - Benign paroxysmal vertigo jr8 Followup: jr8 - With: Christina Thomas MD - When: 5 - 6 days - Reason: Recheck today's complaints, Continuance of care, Re-evaluation by your physician Discharge Instructions: - Discharge Summary Sheet jr8 - Vertigo jr8 Forms: - Medication Reconciliation Form jr8 - Thank You Letter jr8 - Antibiotic Education jr8 - Prescription Opioid Use jr8 Prescriptions: - Meclizine 25 mg Oral Tablet - take 1 tablet by ORAL route every 8 hours As needed; 30 tablet; Refills: 0, jr8 Product Selection Permitted - Valium 2 mg Oral Tablet - take 1 tablet by ORAL route every 8 hours As needed; 20 tablet; Refills: 0, jr8 Product Selection Permitted - Zofran 4 mg Oral Tablet - take 1 tablet by ORAL route every 12 hours As needed; 20 tablet; Refills: 0, jr8 Product Selection Permitted NIH Stroke Scale - NIH Stroke Score Date: 09/28/2021 Time: 22:00 Total Score = 0 1a. Level of Consciousness (LOC) - 0(Alert) 1b. Level of Consciousness (LOC) (Month \T\ Age) - 0(Both) 1c. LOC Commands (Open \T\ Closes Eyes/Aircraft Captain) - 0(Both) 2. Best Gaze (Lateral Gaze Paresis) - 0(Normal) 3. Visual Field Loss - 0(No visual loss) 4. Facial Palsy - 0(Normal) 5a. Left Arm: Motor (10-second hold) - 0(No drift) 5b. Right Arm: Motor (10-second hold) - 0(No drift) 6a. Left Leg: Motor (5-second hold - always test supine) - 0(No drift) 6b. Right Leg: Motor (5-second hold - always test supine) - 0(No drift) 7. Limb Ataxia (finger/nose \T\ heel/matthews - test with eyes open) - 0(Absent) 8. Sensory Loss (pinprick arms/legs/face) - 0(Normal) 9. Best Language: Aphasia (description/naming/reading) - 0(No aphasia) 10. Dysarthria (speech clarity - read or repeat words) - 0(Normal) 11. Extinction and Inattention (visual/tactile/auditory/spatial/personal) - 0(No abnormality) Initials: al4 NIH Stroke Scale - NIH Stroke Score Date: 09/28/2021 Time: 22:35 Total Score = 0 1a. Level of Consciousness (LOC) - 0(Alert) 1b. Level of Consciousness (LOC) (Month \T\ Age) - 0(Both) 1c. LOC Commands (Open \T\ Closes Eyes/Aircraft Captain) - 0(Both) 2. Best Gaze (Lateral Gaze Paresis) - 0(Normal) 3. Visual Field Loss - 0(No visual loss) 4. Facial Palsy - 0(Normal) 5a. Left Arm: Motor (10-second hold) - 0(No drift) 5b. Right Arm: Motor (10-second hold) - 0(No drift) 6a. Left Leg: Motor (5-second hold - always test supine) - 0(No drift) 6b. Right Leg: Motor (5-second hold - always test supine) - 0(No drift) 7. Limb Ataxia (finger/nose \T\ heel/matthews - test with eyes open) - 0(Absent) 8. Sensory Loss (pinprick arms/legs/face) - 0(Normal) 9. Best Language: Aphasia (description/naming/reading) - 0(No aphasia) 10. Dysarthria (speech clarity - read or repeat words) - 0(Normal) 11. Extinction and Inattention (visual/tactile/auditory/spatial/personal) - 0(No abnormality) Initials: justyn Signatures: Dispatcher [employer] EDWilliam Carpenter MD MD rn Pena, Laura, RN RN lp1 Rom Roe PA PA jr8 Ledbetter, Alexis al4 Corrections: (The following items were deleted from the chart) 09/28 21:58 21:49 PMHx: High Cholesterol; lp1 lp1 21:58 21:49 PMHx: kidney problems; St 3; lp1 lp1
[2021-09-29 02:20] VITALS: TEMP 99.7
[2021-09-29 02:24] VITALS: BP 146/99; O2SAT 100
--- NOTE | 2021-09-29 07:30 | EKG ---
Test Date: 2021-09-28 Test Time: 22:03:36 Fire Range Technician: MEASUREMENT RESULTS: Intervals: Rate: 60 AL: 162 QRSD: 88 QT: 400 QTc: 400 [place]: P: 54 AL: 162 QRS: 37 T: 34 INTERPRETIVE STATEMENTS: Normal sinus rhythm Normal ECG Compared to ECG 04/18/2016 21:56:11 T-wave abnormality no longer present Electronically Signed On 09-29-21 07:29:46 CDT by Jamie Kaur
--- NOTE | 2021-09-29 11:36 | RAD REPORT ---
EXAM DESCRIPTION: Chest Single View 09/28/2021 11:01 PM CDT CLINICAL HISTORY: 36 years, Male, stroke COMPARISON: None. FINDINGS: Single view of the chest was obtained portable. No prior films are available for compariso n. The cardiomediastinal silhouette demonstrate to be unremarkable. The heart is not enlarged. The thoracic aorta is unremarkable. Costophrenic angles are sharp. No areas of consolidation or vanessa s are seen. External EKG leads within the [id number] limits diagnosis. The rest of the soft tissue and bony structures demonstrate to be unremarkable. IMPRESSION: No acute cardiopulmonary disease identified. Electronically signed by: Connor Khan MD 09/28/2021 11:02 PM CDT Due to temporary technical issues with the PACS/Fluency reporting system, reports are being signed by the in house radiologist without review as a courtesy to ensure prompt reporting. The interpreting r adiologist is fully responsible for the content of the report.
== END 2021-09-29 00:13 | disposition home or self-care (01) ==
LOC: ER 21:24
DX: H81.10 Benign paroxysmal vertigo, unspecified ear (principal); R11.0 Nausea; I12.9 Hypertensive chronic kidney disease with stage 1 through stage 4 chronic kidney disease, or unspecified chronic kidney disease; N18.30 Chronic kidney disease, stage 3 unspecified; E03.9 Hypothyroidism, unspecified; Z86.718 Personal history of other venous thrombosis and embolism; Z88.2 Allergy status to sulfonamides; Z88.6 Allergy status to analgesic agent
CPT/HCPCS: 93005; 85025; 80048; 36415; 83735; 85610; 82947; 85730; 70450; 71045; 96374; 99284; J8597; J3360

== ENCOUNTER → 2023-06-22 | Emergency (ER) | payer BC ==
[~2023-06-22] MED LIST: TENECTEPLASE 50 MG/10 ML VIAL IV ONE
--- NOTE | 2023-06-22 20:39 | RAD REPORT ---
EXAM DESCRIPTION: CT - Ct Stroke Brain Wo Cont - 06/22/2023 8:33 pm CLINICAL HISTORY: STROKE ALERT COMPARISON: Ct Stroke Brain Wo Cont dated 09/28/2021 TECHNIQUE: Noncontrast head CT images were obtained without IV contrast. Multiplanar reformats were generated and reviewed. All CT scans are performed using dose optimization technique as appropriate and may include automated exposure control or mA/KV adjustment according to patient size. FINDINGS: No intracranial hemorrhage, mass, or edema. Midline structures are unremarkable. Normal ventricular caliber for age. Vicente-white matter differentiation is preserved, without evidence of acute infarct. No abnormal extra- axial fluid collections. Mastoid air cells and visualized portions of the paranasal sinuses are clear. No acute bony findings. IMPRESSION: No evidence of an acute intracranial process. The findings were communicated to Yonathan Boothe on 06/22/2023 at 20:24 hours.
[2023-06-22 21:01] LABS: Hematocrit 37.3 % (39.6-49.0); Lymphocytes % 9.9 % (15.3-44.8); MCV 75.4 fL (80-100); MPV 7.9 fL (7.6-11.3); Platelets 274 thou/uL (152-406); RBC Red Blood Cell Count 4.94 M/uL (4.33-5.43)
[2023-06-22 21:06] LABS: Protime INR 1.08
--- NOTE | 2023-06-22 21:10 | EDPHYS ---
Physician Documentation [facility] Name: Roly Guy Jr Age: 37 yrs Sex: Male : 1985 Arrival Date: 06/22/2023 Time: 20:14 Bed 3 Private MD: ED Physician Yonathan Boothe HPI: 06/22 23:25 This 37 yrs old Black Male presents to ER via EMS with complaints of Altered Mental rt Status, Blurred Vision. 23:25 Patient presents to the ED with signs and symptoms concerning for stroke. The patient rt reportedly had an acute onset of right-sided numbness, speech difficulties, blurred vision on the right eye starting about 2 hours prior to arrival, last known normal was at about 630. Patient does have a history of a renal transplant 1 year ago. He denies recent trauma.. Historical: - Allergies: 21:03 NSAIDS; ha1 21:03 Sulfa (Sulfonamide Antibiotics); ha1 - PMHx: 21:03 CKD stage 3; DVT; Gout; Hyperlipidemia; Hypertension; Hypothyroidism; IGA Neuropathy; ha1 psoriasis; Psoriatic Arthritis; Rheumatoid Arthritis; - PSHx: 21:03 kidney transplant (July 2022); ha1 - Immunization history:: Adult Immunizations up to date. - Social history:: Smoking status: Patient denies any tobacco usage or history of. - Family history:: not pertinent. ROS: 23:25 Constitutional: Negative for fever, chills, and weight loss, Cardiovascular: Negative rt for chest pain, palpitations, and edema, Respiratory: Negative for shortness of breath, cough, wheezing, and pleuritic chest pain, Abdomen/GI: Negative for abdominal pain, nausea, vomiting, diarrhea, and constipation, MS/Extremity: Negative for injury and deformity, Skin: Negative for injury, rash, and discoloration, Psych: Negative for depression, anxiety, suicide ideation, homicidal ideation, and hallucinations, 23:25 Eyes: Positive for visual disturbance, Negative for pain, 23:25 Neuro: Positive for altered mental status, numbness, weakness, Exam: 23:25 Constitutional: This is a well developed, well nourished patient who is awake, alert, rt and in no acute distress. Head/Face: Normocephalic, atraumatic. Neck: Trachea midline, no thyromegaly or masses palpated, and no cervical lymphadenopathy. Supple, full range of motion without nuchal rigidity, or vertebral point tenderness. No Meningismus. Chest/axilla: Normal chest wall appearance and motion. Nontender with no deformity. No lesions are appreciated. Cardiovascular: Regular rate and rhythm with a normal S1 and S2. No gallops, murmurs, or rubs. Normal PMI, no JVD. No pulse deficits. Respiratory: Lungs have equal breath sounds bilaterally, clear to auscultation and percussion. No rales, rhonchi or wheezes noted. No increased work of breathing, no retractions or nasal flaring. Abdomen/GI: Soft, non-tender, with normal bowel sounds. No distension or tympany. No guarding or rebound. No evidence of tenderness throughout. Skin: Warm, dry with normal turgor. Normal color with no rashes, no lesions, and no evidence of cellulitis. MS/ Extremity: Pulses equal, no cyanosis. Neurovascular intact. Full, normal range of motion. Psych: Awake, alert, with orientation to person, place and time. Behavior, mood, and affect are within normal limits. 23:25 Eyes: Extraocular muscles intact, no visual field deficits. 23:25 ECG was reviewed by the Attending Physician. 23:25 Neuro: Confused, expressive aphasia noted, no cranial nerve deficits, strength and sensation intact in upper and lower extremities, no ataxia [id number], no neglect noted, Vital Signs: 20:14 BP 141 / 100; Pulse 72; Resp 19 S; Temp 98.3(O); Pulse Ox 100% on R/A; Weight 34.38 kg; ha1 Height 5 ft. 9 in. ; Pain 0/10; 20:41 BP 135 / 107; Pulse 76; Resp 18; Pulse Ox 100% ; rv1 20:42 Weight 75.8 kg (M); jb4 20:48 BP 144 / 102; Pulse 85; Resp 16; Pulse Ox 100% ; rv1 20:50 BP 139 / 101; Pulse 80; Resp 19; Pulse Ox 100% ; rv1 21:30 BP 140 / 101; Pulse 74; Resp 18; Pulse Ox 100% on R/A; as9 20:14 Body Mass Index 11.19 (75.80 kg, 175.26 cm) ha1 20:14 Pain Scale: Adult ha1 MDM: 20:16 Patient medically screened. rt 23:29 Differential Diagnosis: CVA, partial seizure. Data reviewed: vital signs, nurses notes, rt lab test result(s), EKG, radiologic studies. Consideration of Admission/Observation Escalation of care including admission/observation considered. Patient requires transfer for higher level of care. Management of patient was discussed with the following: Copy Camera Operator: Discussed with accepting neurologist, emergency physician at [facility]. I considered the following discharge prescriptions or medication management in the emergency department Medications were administered in the Emergency Department. See MAR. Independent interpretation of the following test(s) in the Emergency Department CT Scan: My interpretation is No intracranial hemorrhage seen on interpretation of CT scan images. Discussion of test interpretation with radiology: I had a discussion with radiology regarding a test interpretation. No hemorrhage. Test considered but Not performed: CT: Patient is status post renal transplant with elevated creatinine. Believe that risks of CTA are too great at this time, patient likely to benefit from emergent MRA to rule out large vessel occlusion. Care significantly affected by the following chronic conditions: Chronic Kidney Disease. Response to treatment: the patient's symptoms have markedly improved after treatment. 06/22 20:27 Order name: Basic Metabolic Panel; Complete Time: 21:34 ha1 06/22 20:27 Order name: CBC with Diff ha1 06/22 20:27 Order name: High Sensitivity Troponin; Complete Time: 21:34 ha1 06/22 20:27 Order name: Protime (+inr); Complete Time: 21:34 ha1 06/22 20:27 Order name: Ptt, Activated; Complete Time: 21:34 ha1 06/22 20:57 Order name: Glucose, Ancillary Testing; Complete Time: 21:34 EDMS 06/22 20:59 Order name: Glucose, Ancillary Testing EDMS 06/22 21:06 Order name: CBC Smear Scan EDMS 06/22 21:41 Order name: Manual Differential EDMS 06/22 20:27 Order name: CT Stroke Brain w/o Contrast; Complete Time: 20:48 ha1 06/22 20:27 Order name: Stroke CXR 1 View; Complete Time: 21:34 ha1 06/22 20:27 Order name: EKG; Complete Time: 20:27 ha1 06/22 20:27 Order name: Accucheck; Complete Time: 20:54 ha1 06/22 20:27 Order name: Cardiac monitoring; Complete Time: 20:54 06/22 20:27 Order name: EKG - Nurse/Tech; Complete Time: 20:54 06/22 20:27 Order name: IV Saline Lock; Complete Time: 20:54 06/22 20:27 Order name: Labs collected and sent; Complete Time: 20:54 06/22 20:27 Order name: NPO; Complete Time: 20:54 06/22 20:27 Order name: O2 Per Protocol; Complete Time: 20:54 06/22 20:27 Order name: O2 Sat Monitoring; Complete Time: 20:54 06/22 20:27 Order name: Stroke Swallow Screen; Complete Time: 20:54 ha EC:25 Rate is 77 beats/min. Rhythm is regular, Normal Sinus Rhythm with No ectopy. QRS [place] rt is Normal. ID interval is normal. QRS interval is normal. QT interval is normal. No Q waves. No ST changes noted. Administered Medications: 20:35 Drug: TNK FOR STROKE - Tenecteplase IV 0.25 mg/kg IV at per protocol once; MAX ha1 DOSE 25 mg, IVP over 5 seconds {Co-Signature: jb4 (Abdifatah Cheney RN).} Route: IV; Rate: per protocol; Site: right antecubital; 21:15 Follow up: Response: No adverse reaction; Marked relief of symptoms ha1 Point of Care Testing: Blood Glucose: 20:30 Blood Glucose: 103 mg/dL; as9 Ranges: Critical Glucose Levels:Adult <50 mg/dl or >400 mg/dl <40 mg/dl or >180 mg/dl Disposition: 23:29 Critical Care:. rt Disposition Summary: 06/22/23 21:09 Transfer Ordered Notes: Transfer Location: [facility] rt Reason: Higher level of care rt Condition: Stable rt Problem: new rt Symptoms: have improved rt Accepting Physician: (06/22/23 22:06) ha1 Diagnosis - Acute CVA rt Forms: - Medication Reconciliation Form rt - SBAR form rt Critical care time excluding procedures: 23:29 Critical care time: Bedside Care: 30 minutes, Consultation: 10 minutes. Total time: 40 rt minutes Signatures: Dispatcher [employer] EDMS Suzan Aguilar RN RN ha1 Jaimie Rome PA-C PA-C sb4 Yonathan Boothe MD MD rt Abdifatah Cheney RN jb4 Corrections: (The following items were deleted from the chart) 20: 20:28 Head Angio+CT.RAD.BRZ ordered. EDMS EDMS : 20:28 Neck Angio+CT.RAD.BRZ ordered. EDMS EDMS 21:03 PSHx: Gastric Bypass- November 2020; ha1 ha1 21: 21:03 PSHx: kidney transplant July 2022 (Gastric Bypass- November 2020); ha1 ha1 22: 21:09 Dr. toussaint ha1
--- NOTE | 2023-06-22 21:10 | ER ---
Nurse's Notes [facility] Name: Roly Guy Jr Age: 37 yrs Sex: Male : 1985 Arrival Date: 06/22/2023 Time: 20:14 Bed 3 Private MD: Diagnosis: Acute CVA Presentation: 06/22 20:16 Chief complaint: EMS states: 37 year old male reports being in the shower when started ha1 to feel drooping of right eye. His daughter report he had an episode of seizure like. on our arrival right side weakness and confused. pt. taken to CT on arrival. Dr. Boothe at bedside. 20:16 Method Of Arrival: EMS: [facility] 20:16 Coronavirus screen: Vaccine status:. Ebola Screen: No symptoms or risks identified at 1 this time. Initial Sepsis Screen: Does the patient meet any 2 criteria? No. Patient's initial sepsis screen is negative. Does the patient have a suspected source of infection? No. Patient's initial sepsis screen is negative. Risk Assessment: Do you want to hurt yourself or someone else? Patient reports no desire to harm self or others. Onset of symptoms was June 22, 2023. 20:16 Acuity: KAITLIN 2 ha1 22:34 An acute neurological deficit is present. The charge nurse has been notified. The as9 patients blood glucose was checked before arriving to the hospital and was found to be normal. Triage Assessment: 20:16 General: Appears uncomfortable, Behavior is agitated, anxious. ha1 20:16 Pain: Denies pain. Neuro: Level of Consciousness is awake, Oriented to person, Weakness ha1 in right hand(s) leg(s) Gait is unsteady, Speech is slurred. Neuro: Unger Agitation-Sedation Scale (RASS):. Cardiovascular: Heart tones S1 S2 present Capillary refill < 3 seconds Patient's skin is warm and dry. Respiratory: Airway is patent Respiratory effort is even, unlabored, Respiratory pattern is regular, symmetrical. GI: No signs and/or symptoms were reported involving the gastrointestinal system. : No signs and/or symptoms were reported regarding the genitourinary system. Derm: Skin is pink, warm \T\ dry. Musculoskeletal: Circulation, motion, and sensation intact. 20:16 The onset of the patients symptoms was less than three hours ago. as9 Historical: - Allergies: 21:03 NSAIDS; ha1 21:03 Sulfa (Sulfonamide Antibiotics); ha1 - PMHx: 21:03 CKD stage 3; DVT; Gout; Hyperlipidemia; Hypertension; Hypothyroidism; IGA Neuropathy; ha1 psoriasis; Psoriatic Arthritis; Rheumatoid Arthritis; - PSHx: 21:03 kidney transplant (July 2022); ha1 - Immunization history:: Adult Immunizations up to date. - Social history:: Smoking status: Patient denies any tobacco usage or history of. - Family history:: not pertinent. Screenin:16 [facility] ED Fall Risk Assessment (Adult) History of falling in the last 3 months, ha1 including since admission No falls in past 3 months (0 pts) Confusion or Disorientation Yes (5 pts) Intoxicated or Sedated No (0 pts) Impaired Gait No (0 pts) Mobility Assist Device Used No (0 pt) Altered Elimination Yes (1 pt) Score/Fall Risk Level 3 or more points = High Risk Oriented to surroundings, Maintained a safe environment, Educated pt \T\ family on fall prevention, incl call for assistance when getting out of bed, Hourly rounding (assess needs \T\ fall precautionary measures) done. Abuse screen: Denies threats or abuse. Denies injuries from another. Nutritional screening: No deficits noted. Tuberculosis screening: No symptoms or risk factors identified. Assessment: 20:16 Reassessment: See triage assessment. ha1 20:30 VAN Scoring: Arm Drift: Patients demonstrates NO arm weakness. Patient is VAN Negative. as9 Visual Disturbance: No visual disturbance noted. TNKase (Tenecteplase) Screening: Indications: Definite evidence of stroke, ischemic, embolic, or hypertensive: Yes. Treatment will start within 4.5 hours onset of symptoms: Yes. No evidence of intracranial hemorrhage or CT of head and no evidence of peripheral hemorrhage or recent CVA: Yes. Consent for thrombolytic therapy: Yes. 21:11 Reassessment: Patient and/or family updated on plan of care and expected duration. Pain ha1 level reassessed. Patient states feeling better. Patient states symptoms have improved. 21:45 Reassessment: Dr. Shyann stringer pt to take home medication for kidney transplant. jb4 21:55 Reassessment: Report given to MYRON Cardenas. ha1 22:06 Reassessment: Patient and/or family updated on plan of care and expected duration. Pain as9 level reassessed. Patient is alert, oriented x 3, equal unlabored respirations, skin warm/dry/pink. Patient denies pain at this time. Patient states feeling better. Patient states symptoms have improved. Vital Signs: 20:14 BP 141 / 100; Pulse 72; Resp 19 S; Temp 98.3(O); Pulse Ox 100% on R/A; Weight 34.38 kg; ha1 Height 5 ft. 9 in. ; Pain 0/10; 20:41 BP 135 / 107; Pulse 76; Resp 18; Pulse Ox 100% ; rv1 20:42 Weight 75.8 kg (M); jb4 20:48 BP 144 / 102; Pulse 85; Resp 16; Pulse Ox 100% ; rv1 20:50 BP 139 / 101; Pulse 80; Resp 19; Pulse Ox 100% ; rv1 21:30 BP 140 / 101; Pulse 74; Resp 18; Pulse Ox 100% on R/A; as9 20:14 Body Mass Index 11.19 (75.80 kg, 175.26 cm) ha1 20:14 Pain Scale: Adult ha ED Course: 20:15 Patient arrived in ED. jj6 20:16 Yonathan Boothe MD is Attending Physician. rt 20:16 Arm band placed on left wrist. ha1 20:16 Patient has correct armband on for positive identification. Placed in gown. Bed in low as9 position. Call light in reach. Side rails up X 1. Adult w/ patient. 20:35 CT Stroke Brain w/o Contrast In Process Unspecified. EDMS 20:46 Stroke CXR 1 View In Process Unspecified. EDMS 20:53 initiated Tranfer with Clarice \Adelina\ sunny [facility] pt acceptance was denied. pm6 20:54 Basic Metabolic Panel Sent. ha1 20:54 CBC with Diff Sent. ha1 20:54 High Sensitivity Troponin Sent. ha1 20:54 Protime (+inr) Sent. ha1 20:54 Ptt, Activated Sent. ha1 21:03 Triage completed. ha1 21:08 initiated transfer with peace \T\ [facility]. pm6 21:14 Basic Metabolic Panel Sent. ha1 21:14 High Sensitivity Troponin Sent. ha1 21:[address] Freedman and [facility] to Emergency department. pm6 21:38 initiated transfer With [facility] ETA 10 min. pm6 22:05 No provider procedures requiring assistance completed. Patient transferred, IV remains ha1 in place. 22:52 Provided Education on: explain the need for transfer. medication administration . . as9 Administered Medications: 20:35 Drug: TNK FOR STROKE - Tenecteplase IV 0.25 mg/kg IV at per protocol once; MAX ha1 DOSE 25 mg, IVP over 5 seconds {Co-Signature: dior (Abdifatah Cheney RN).} Route: IV; Rate: per protocol; Site: right antecubital; 21:15 Follow up: Response: No adverse reaction; Marked relief of symptoms ha1 Medication: 22:06 VIS not applicable for this client. ha1 Point of Care Testing: Blood Glucose: 20:30 Blood Glucose: 103 mg/dL; as9 Ranges: Outcome: 21:09 ER care complete, transfer ordered by . rt 22:05 Transferred by helicopter to [facility], Transfer form completed. ha1 X-rays sent w/ patient. 22:05 Condition: stable 22:05 Discharge instructions given to patient, family, Instructed on the need for transfer, Demonstrated understanding of instructions, 22:06 Patient left the ED. ha1 Signatures: Dispatcher [employer] EDAbdifatah Velazquez, RN RN jb4 Fiorella Vasquezj6 Suzan Aguilar RN RN ha1 Yonathan Boothe MD MD rt Tomeka Kenyon rv1 Claudette Cosby pm6 Chance Swenson RN RN as9 Abdifatah Cheney RN jb4 Corrections: (The following items were deleted from the chart) 21:06 21:03 PSHx: Gastric Bypass- November 2020; ha1 ha1 21:06 21:03 PSHx: kidney transplant July 2022 (Gastric Bypass- November 2020); ha1 ha1
--- NOTE | 2023-06-22 21:15 | RAD REPORT ---
[facility] 8[facility]44 [facility] CLINICAL HISTORY: stroke symptoms COMPARISON: Chest Single View dated 09/28/2021; Chest Single View dated 01/07/2020; Chest Single View dated 04/18/2016 TECHNIQUE: Portable AP view of the chest. FINDINGS: The lungs are clear. No pneumothorax or effusion. The cardiomediastinal contours are unre markable. IMPRESSION: No acute cardiopulmonary process.
[2023-06-22 21:19] LABS: Troponin High Sensitivity 13.2 pg/mL (<58.9)
[2023-06-22 21:40] LABS: White Blood Cell Scan OK (OK)
[2023-06-22 21:41] LABS: Blood Morphology Comment NOT SEEN (NOT SEEN); Platelet Estimate ADEQ
[2023-06-22 23:00] VITALS: BP 139/101; TEMP 98.3; O2SAT 100
--- NOTE | 2023-06-26 15:12 | EKG ---
Test Date: 2023-06-22 Test Time: 20:46:14 [employer] Supervisor: MEHRAN MEASUREMENT RESULTS: Intervals: Rate: 77 [place]: 152 QRSD: 92 QT: 372 QTc: 420 [place]: P: 76 [place]: 152 QRS: 70 T: -6 INTERPRETIVE STATEMENTS: Normal sinus rhythm Abnormal QRS-T angle, consider primary T wave abnormality Abnormal ECG Compared to ECG 09/28/2021 22:03:36 T-wave abnormality now present Electronically Signed On 06-26-23 15:03:04 [employer] by Jack He
== END ==
LOC: ER 20:14
DX: I63.9 Cerebral infarction, unspecified (principal); I12.9 Hypertensive chronic kidney disease with stage 1 through stage 4 chronic kidney disease, or unspecified chronic kidney disease; N18.30 Chronic kidney disease, stage 3 unspecified; Z94.0 Kidney transplant status; Z88.2 Allergy status to sulfonamides; Z88.6 Allergy status to analgesic agent
CPT/HCPCS: 93005; 85025; 80048; 36415; 85610; 82565; 82947; 85730; 84484; 70450; 71045; J3101